=== PATIENT | male | born 1990 | race Two or more races ===

== ENCOUNTER → 2020-07-02 | Outpatient (REF) | payer OTHER ==
[2020-07-02 16:50] LABS: BASO % 0.5 % (0.0-1.0); EOS % 0.7 % (0.0-3.0); HEMATOCRIT 45.7 % (42.0-52.0); LYMPH # 1.7 10^3/uL (1.5-5.0); LYMPH % 27.5 % (24.0-44.0); MEAN CORPUSCULAR HEMOGLOBIN 27.5 pg (27.0-33.0); MEAN CORPUSCULAR HGB CONC 30.6 g/dl (32.0-36.5); MEAN CORPUSCULAR VOLUME 89.6 fl (80.0-96.0); MONO % 15.6 % (0.0-5.0); NEUTROPHILS # 3.4 10^3/uL (1.5-8.5); NEUTROPHILS % 55.5 % (36.0-66.0); PLATELET COUNT, AUTOMATED 199 10^3/uL (150-450); WHITE BLOOD COUNT 6.2 10^3/uL (4.0-10.0)
[2020-07-02 17:10] LABS: ALT/SGPT 34 U/L (12-78); BILIRUBIN,TOTAL 0.4 MG/DL (0.2-1.0); BLOOD UREA NITROGEN 11 MG/DL (7-18); CALCIUM LEVEL 8.8 MG/DL (8.5-10.1); CARBON DIOXIDE LEVEL 31 MEQ/L (21-32); CHLORIDE LEVEL 108 MEQ/L (98-107); CREATININE FOR GFR 0.93 MG/DL (0.70-1.30); GLOMERULAR FILTRATION RATE > 60.0 (>60); GLUCOSE, FASTING 76 MG/DL (70-100); SODIUM LEVEL 142 MEQ/L (136-145); TOTAL PROTEIN 7.6 GM/DL (6.4-8.2)
== END ==
LOC: M SFHCPLAZ 14:01
PROVIDERS: ATTEND Nurse Practitioner Family
DX: Z28.3 Underimmunization status (principal); L05.91 Pilonidal cyst without abscess; Z02.1 Encounter for pre-employment examination

== ENCOUNTER 2020-10-03 12:56 | Emergency (ER) | payer OTHER ==
[~2020-10-03] VITALS: Ht 180.3 cm; Wt 72.7 kg
[2020-10-03 12:57] VITALS: BP 120/79
[2020-10-03] MEDS ORDERED: BACT800T5 PO (13:14)
== END 2020-10-03 13:21 | disposition home or self-care (01) ==
LOC: M ED 12:56
DX: L05.91 Pilonidal cyst without abscess (principal); F17.210 Nicotine dependence, cigarettes, uncomplicated

== ENCOUNTER 2020-10-06 12:59 | Emergency (ER) | payer OTHER ==
[~2020-10-06] VITALS: Ht 180.3 cm; Wt 70.0 kg
[~2020-10-06 12:59] MED LIST: BACT800T5 PO
[2020-10-06 13:07] VITALS: BP 108/66
[2020-10-06] MEDS ORDERED: LIDOCAINE W/EPINEPHRINE 1% 20ML VIAL SC ONE (13:45)
== END 2020-10-06 14:51 | disposition home or self-care (01) ==
LOC: M ED 12:59
DX: L05.01 Pilonidal cyst with abscess (principal); R19.7 Diarrhea, unspecified; Z79.2 Long term (current) use of antibiotics

== ENCOUNTER 2020-10-14 14:46 | Emergency (ER) | payer OTHER ==
[~2020-10-14] VITALS: Ht 180.3 cm; Wt 72.7 kg
[2020-10-14] MEDS ORDERED: methylPREDNISolone 125MG 2ML VIAL IV ONE (15:00)
[2020-10-14] MEDS ORDERED: FAMOTIDINE INJ 20MG/2ML VIAL (S0028 PER 1) IVP ONE (15:00)
[2020-10-14] MEDS ORDERED: METOCLOPRAMIDE INJ 10MG/2ML VIAL (J2765 PER 1) IV ONE (15:00)
[2020-10-14] MEDS ORDERED: NS 1,000 ML IV ONE (15:00)
--- NOTE | 2020-10-14 15:29 | REP ---
INDICATION: acute headache. COMPARISON: None. TECHNIQUE: Helical scanning is acquired. 5 mm axial images were reformatted. Coronal MPR images were generated. FINDINGS: Bone window settings demonstrate an intact bony calvarium. There is no evidence of skull fracture or incidental bony calvarial lesion. The visualized paranasal sinuses appear clear. No intraorbital abnormality is seen. On soft tissue window setting images; the lateral, third, and fourth ventricles are normal in size and position. Moe-white differentiation pattern is normal above and below the tentorium. There are is no evidence of intracranial hemorrhage. No mass, edema, infarction, or midline shift is seen. No extra-axial fluid collection is appreciated. There is some motion artifact on the initial acquisition. This was repeated. IMPRESSION: Negative noncontrast head CT. <Electronically signed by Jaxon Elkins > 10/14/20 [id number]
[2020-10-14 15:48] LABS: BASO % 0.7 % (0.0-1.0); HEMATOCRIT 47.5 % (42.0-52.0); HEMOGLOBIN 15.6 g/dl (13.5-17.5); LYMPH # 0.5 10^3/uL (1.5-5.0); LYMPH % 16.8 % (24.0-44.0); MEAN CORPUSCULAR HEMOGLOBIN 27.8 pg (27.0-33.0); MEAN CORPUSCULAR HGB CONC 32.8 g/dl (32.0-36.5); MEAN CORPUSCULAR VOLUME 84.5 fl (80.0-96.0); MONO # 0.3 10^3/uL (0.0-0.8); MONO % 10.5 % (2.0-8.0); NEUTROPHILS # 2.1 10^3/uL (1.5-8.5); NEUTROPHILS % 70.3 % (36.0-66.0); PLATELET COUNT, AUTOMATED 159 10^3/uL (150-450); RED BLOOD COUNT 5.62 10^6/uL (4.30-6.10)
[2020-10-14 16:57] LABS: ALBUMIN 4.1 GM/DL (3.2-5.2); BILIRUBIN,DIRECT 0.3 MG/DL (0.0-0.2); BILIRUBIN,TOTAL 0.6 MG/DL (0.2-1.0); CALCIUM LEVEL 9.3 MG/DL (8.5-10.1); CREATININE FOR GFR 1.46 MG/DL (0.70-1.30); POTASSIUM SERUM 3.9 MEQ/L (3.5-5.1); TOTAL PROTEIN 8.5 GM/DL (6.4-8.2)
[2020-10-14 18:12] VITALS: BP 114/66
== END 2020-10-14 18:27 | disposition home or self-care (01) ==
LOC: M ED 14:46
DX: L50.0 Allergic urticaria (principal); R94.5 Abnormal results of liver function studies; Z79.2 Long term (current) use of antibiotics
CPT/HCPCS: 36415; 70450; 80048; 80076; 85025; 93041; 94760; 96361; 96374; 99285; J2765; J2930

== ENCOUNTER → 2020-10-15 | Outpatient (CLI) | payer OTHER ==
[2020-10-15 18:23] LABS: HEMOGLOBIN 15.5 g/dl (13.5-17.5); MEAN CORPUSCULAR HEMOGLOBIN 27.9 pg (27.0-33.0); MEAN CORPUSCULAR HGB CONC 32.3 g/dl (32.0-36.5); MEAN CORPUSCULAR VOLUME 86.5 fl (80.0-96.0); PLATELET COUNT, AUTOMATED 178 10^3/uL (150-450); RED BLOOD COUNT 5.55 10^6/uL (4.30-6.10); WHITE BLOOD COUNT 6.6 10^3/uL (4.0-10.0)
[2020-10-15 18:47] LABS: ALBUMIN 4.4 GM/DL (3.2-5.2); ALT/SGPT 401 U/L (12-78); BILIRUBIN,TOTAL 0.4 MG/DL (0.2-1.0); BLOOD UREA NITROGEN 15 MG/DL (7-18); CALCIUM LEVEL 9.1 MG/DL (8.5-10.1); CARBON DIOXIDE LEVEL 31 MEQ/L (21-32); CHLORIDE LEVEL 104 MEQ/L (98-107); CREATININE FOR GFR 1.16 MG/DL (0.70-1.30); GLOMERULAR FILTRATION RATE > 60.0 (>60); GLUCOSE, FASTING 94 MG/DL (70-100); POTASSIUM SERUM 4.2 MEQ/L (3.5-5.1); SODIUM LEVEL 139 MEQ/L (136-145); TOTAL PROTEIN 8.3 GM/DL (6.4-8.2)
[2020-10-15 18:57] LABS: ATYPICAL LYMPH 2 % (0-5); BASOPHILS 1 % (0-1); EOSINOPHILS 1 % (0-3); LYMPHOCYTES 38 % (16-44); MONOCYTES 14 % (0-5); NEUTROPHILS 27 % (28-66)
[2020-10-15 18:58] LABS: ANISOCYTOSIS 1+; PLATELET ESTIMATE NORMAL (NORMAL)
== END ==
LOC: M LAB 17:53
PROVIDERS: ATTEND Family Medicine
DX: N17.9 Acute kidney failure, unspecified (principal); T36.95XA Adverse effect of unspecified systemic antibiotic, initial encounter; B17.9 Acute viral hepatitis, unspecified

== ENCOUNTER → 2020-10-19 | Outpatient (REF) | payer OTHER ==
[2020-10-19 15:44] LABS: ALBUMIN 3.6 GM/DL (3.2-5.2); ALT/SGPT 119 U/L (12-78); BILIRUBIN,TOTAL 0.3 MG/DL (0.2-1.0); BLOOD UREA NITROGEN 14 MG/DL (7-18); CALCIUM LEVEL 8.6 MG/DL (8.5-10.1); CARBON DIOXIDE LEVEL 28 MEQ/L (21-32); CHLORIDE LEVEL 107 MEQ/L (98-107); CREATININE FOR GFR 0.82 MG/DL (0.70-1.30); GLOMERULAR FILTRATION RATE > 60.0 (>60); GLUCOSE, FASTING 108 MG/DL (70-100); SODIUM LEVEL 140 MEQ/L (136-145)
[2020-10-19 16:05] LABS: HEPATITIS B SURFACE ANTIGEN NEGATIVE (NEGATIVE)
[2020-10-19 16:33] LABS: HEPATITIS B CORE ANTIBODY IGM NEGATIVE (NEGATIVE)
[2020-10-19 16:35] LABS: HEPATITIS A ANTIBODY IGM NEGATIVE (NEGATIVE)
== END ==
LOC: M SFHCPLAZ 13:37
PROVIDERS: ATTEND Physician Assistant
DX: T36.95XA Adverse effect of unspecified systemic antibiotic, initial encounter (principal); N17.9 Acute kidney failure, unspecified; B17.9 Acute viral hepatitis, unspecified

== ENCOUNTER → 2020-11-02 | Outpatient (REF) | payer OTHER | LOC: M SFHCPLAZ 16:48 | PROVIDERS: ATTEND Family Medicine | DX: L05.01 Pilonidal cyst with abscess (principal) ==

== ENCOUNTER 2021-03-19 03:09 | Inpatient (IN) | payer OTHER ==
[~2021-03-19] VITALS: Ht 180.3 cm; Wt 72.7 kg
--- NOTE | 2021-03-19 04:51 | REPVR ---
PROCEDURE INFORMATION: Exam: CT Head Without Contrast Exam date and time: 03/19/2021 3:33 AM Age: 30 years old Clinical indication: Injury or trauma; Fall; Concussion/head injury TECHNIQUE: Imaging protocol: Computed tomography of the head without contrast. Radiation optimization: All CT scans at this facility use at least one of these dose optimization techniques: automated exposure control; mA and/or kV adjustment per patient size (includes targeted exams where dose is matched to clinical indication); or iterative reconstruction. COMPARISON: CT Head without contrast 10/14/2020 3:16 PM FINDINGS: There are no intra-or extra-axial hemorrhages or fluid collections. There is no mass effect or midline shift. Ventricles are nondilated for age. There are no focal parenchymal abnormalities. No calvarial fractures. IMPRESSION: No acute intracranial process. No intracranial hemorrhage. Electronically signed by: Luis Hartman On 03/19/2021 04:50:54 AM
--- NOTE | 2021-03-19 04:53 | REPVR ---
PROCEDURE INFORMATION: Exam: CT Cervical Spine Without Contrast Exam date and time: 03/19/2021 3:33 AM Age: 30 years old Clinical indication: Neck pain; Additional info: Trauma TECHNIQUE: Imaging protocol: Computed tomography images of the cervical spine without contrast. Radiation optimization: All CT scans at this facility use at least one of these dose optimization techniques: automated exposure control; mA and/or kV adjustment per patient size (includes targeted exams where dose is matched to clinical indication); or iterative reconstruction. COMPARISON: CT Head without contrast 10/14/2020 3:16 PM FINDINGS: On sagittal sequences, there is straightening of the normal cervical lordosis. Cervical vertebral body heights are maintained. Disc spaces are maintained. There is no AP malalignment. No prevertebral soft tissue swelling. Posterior elements and facets are intact. On axial sequences, intact neural rings are identified from C1-T1. No evidence of acute fracture. Advanced cystic changes in the lung apices for age. IMPRESSION: No acute fracture or traumatic AP malalignment within the cervical spine. Electronically signed by: Luis Hartman On 03/19/2021 04:52:59 AM
--- NOTE | 2021-03-19 06:08 | REPVR ---
PROCEDURE INFORMATION: Exam: XR Left Knee Exam date and time: 03/19/2021 5:59 AM Age: 30 years old Clinical indication: Injury or trauma; Fall; Blunt trauma; Knee; Left; Additional info: Fall/trauma TECHNIQUE: Imaging protocol: XR Left knee. Views: 4 or more views. COMPARISON: No relevant prior studies available. FINDINGS: Comminuted fracture of the patella which is dislocated superiorly and laterally. No evidence of fracture within the distal femur, proximal tibia or proximal fibula. IMPRESSION: Fracture dislocation of the patella. No fracture within the distal femur, proximal tibia or proximal fibula. Electronically signed by: Luis Hartman On 03/19/2021 06:07:50 AM
[2021-03-19] MEDS: MORPHINE 2 MG/ML 1ML VIAL (J2270) IV PRN ×2 (06:14→08:56)
[2021-03-19] MEDS ORDERED: ceFAZolin SOD 2 GM in IV 1 EA IV ONE (06:20)
[2021-03-19] MEDS ORDERED: HOME MED LIST COMPLETE! XX SCH (06:25)
[2021-03-19] MEDS ORDERED: ceFAZolin 1GM VIAL (J0690 PER 500MG) As Ordered ONE (06:36)
[2021-03-19 06:50] LABS: BASO % 0.5 % (0.0-1.0); EOS % 0.5 % (0.0-3.0); HEMATOCRIT 44.9 % (42.0-52.0); HEMOGLOBIN 14.9 g/dl (13.5-17.5); LYMPH # 2.2 10^3/uL (1.5-5.0); LYMPH % 24.7 % (24.0-44.0); MEAN CORPUSCULAR HEMOGLOBIN 28.3 pg (27.0-33.0); MEAN CORPUSCULAR HGB CONC 33.2 g/dl (32.0-36.5); MEAN CORPUSCULAR VOLUME 85.4 fl (80.0-96.0); MONO # 0.9 10^3/uL (0.0-0.8); MONO % 9.8 % (2.0-8.0); NEUTROPHILS # 5.7 10^3/uL (1.5-8.5); NEUTROPHILS % 63.8 % (36.0-66.0); PLATELET COUNT, AUTOMATED 255 10^3/uL (150-450); RED BLOOD COUNT 5.26 10^6/uL (4.30-6.10); WHITE BLOOD COUNT 8.8 10^3/uL (4.0-10.0)
[2021-03-19 07:14] LABS: ALBUMIN 4.2 GM/DL (3.2-5.2); ALT/SGPT 35 U/L (12-78); BILIRUBIN,TOTAL 0.4 MG/DL (0.2-1.0); BLOOD UREA NITROGEN 12 MG/DL (7-18); CALCIUM LEVEL 8.6 MG/DL (8.5-10.1); CARBON DIOXIDE LEVEL 26 MEQ/L (21-32); CHLORIDE LEVEL 110 MEQ/L (98-107); CREATININE FOR GFR 0.87 MG/DL (0.70-1.30); ETHYL ALCOHOL (ETHANOL) 0.118 % (0.000-0.010); GLOMERULAR FILTRATION RATE > 60.0 (>60); GLUCOSE, FASTING 84 MG/DL (70-100); POTASSIUM SERUM 4.2 MEQ/L (3.5-5.1); SODIUM LEVEL 141 MEQ/L (136-145); TOTAL PROTEIN 7.7 GM/DL (6.4-8.2)
[2021-03-19 07:22] LABS: AMPHETAMINES LEVEL URINE NEGATIVE (NEGATIVE); BARBITURATES URINE NEGATIVE (NEGATIVE); BENZODIAZEPINES URINE NEGATIVE (NEGATIVE); CANNABINOIDS URINE POSITIVE (NEGATIVE); COCAINE METABOLITE URINE NEGATIVE (NEGATIVE); METHADONE URINE NEGATIVE (NEGATIVE); OPIATES URINE POSITIVE (NEGATIVE); PHENCYCLIDINE URINE NEGATIVE (NEGATIVE)
[2021-03-19] MEDS ORDERED: ACETAMINOPHEN TAB 650MG DOSE (2X325MG) PO PRN (07:30)
[2021-03-19 07:33] LABS: RSV AMPLIFICATION NEGATIVE (NEGATIVE)
[2021-03-19 08:36] LABS: INR 0.97; PROTHROMBIN TIME 13.3 SECONDS (12.7-14.5)
[2021-03-19 08:37] LABS: PARTIAL THROMBOPLASTIN TIME 31.2 SECONDS (25.9-37.0)
[2021-03-19] MEDS ORDERED: PERCOCET 5MG/325MG TAB PO PRN (11:10)
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
[2021-03-19] MEDS: PERCOCET 5MG/325MG TAB PO PRN ×2 (11:34→17:36)
[2021-03-19 14:25] VITALS: BP 105/75
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
[2021-03-19] MEDS: MORPHINE 4 MG/ML 1ML VIAL/SYRINGE (J2270) IV PRN (20:51)
[2021-03-19 22:00] VITALS: BP 120/80
[2021-03-20] VITALS (7 sets, daily range): BP systolic 114–143; BP diastolic 66–88
[2021-03-20] MEDS: PERCOCET 5MG/325MG TAB PO PRN ×3 (03:08→23:26)
[2021-03-20] MEDS: MORPHINE 4 MG/ML 1ML VIAL/SYRINGE (J2270) IV PRN ×2 (03:09→20:35)
[2021-03-20 07:29] LABS: HEMOGLOBIN 14.4 g/dl (13.5-17.5); MEAN CORPUSCULAR HEMOGLOBIN 28.7 pg (27.0-33.0); MEAN CORPUSCULAR HGB CONC 33.5 g/dl (32.0-36.5); MEAN CORPUSCULAR VOLUME 85.7 fl (80.0-96.0); PLATELET COUNT, AUTOMATED 230 10^3/uL (150-450); RED BLOOD COUNT 5.02 10^6/uL (4.30-6.10); WHITE BLOOD COUNT 10.4 10^3/uL (4.0-10.0)
[2021-03-20 07:55] LABS: BLOOD UREA NITROGEN 14 MG/DL (7-18); CARBON DIOXIDE LEVEL 31 MEQ/L (21-32); CHLORIDE LEVEL 102 MEQ/L (98-107); CREATININE FOR GFR 0.94 MG/DL (0.70-1.30); GLOMERULAR FILTRATION RATE > 60.0 (>60); GLUCOSE, FASTING 98 MG/DL (70-100); MAGNESIUM LEVEL 2.4 MG/DL (1.8-2.4); POTASSIUM SERUM 4.4 MEQ/L (3.5-5.1); SODIUM LEVEL 136 MEQ/L (136-145)
[2021-03-20] MEDS ORDERED: MIDAZOLAM INJ 2MG/2ML VIAL (J2250 PER 1MG) As Ordered ONE ×2 (08:12→08:15)
[2021-03-20] MEDS ORDERED: fentaNYL 100 MCG/2 ML INJECTION (J3010) As Ordered ONE ×2 (08:12→09:33)
[2021-03-20] MEDS ORDERED: ROCURONIUM BROMIDE 50 MG/5 ML VIAL As Ordered ONE ×2 (08:15→10:08)
[2021-03-20] MEDS ORDERED: fentaNYL 250 MCG/5 ML INJECTION (J3010) As Ordered ONE (08:15)
[2021-03-20] MEDS ORDERED: LIDOCAINE 2% 100MG/5ML SDV (FOR ANES.) As Ordered ONE (08:15)
[2021-03-20] MEDS ORDERED: propofoL 200 MG/20 ML VIAL As Ordered ONE (08:15)
[2021-03-20] MEDS ORDERED: EPINEPHrine INJ 1 MG/ML 1ML AMP XX ONE (08:50)
[2021-03-20] MEDS ORDERED: ROPIvacaine 0.5% 30ML INJECTION (J2795 PER 1MG) XX ONE (08:50)
[2021-03-20] MEDS ORDERED: dexameTHASONE 10MG/1ML VIAL PRES.FREE (J1100 PER 1MG) XX ONE (08:50)
[2021-03-20] MEDS ORDERED: LIDOCAINE 1% MDV 20ML VIAL XX ONE (08:50)
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
[2021-03-20] MEDS ORDERED: ENOXAPARIN 40MG/0.4ML SYRINGE (J1650 PER 10MG) SC SCH (09:00)
[2021-03-20] MEDS ORDERED: TRANEXAMIC ACID 100 MG/ML 10ML VIAL As Ordered ONE ×2 (09:05→12:28)
[2021-03-20] MEDS: MIDAZOLAM INJ 2MG/2ML VIAL (J2250 PER 1MG) IV PRN ×2 (09:07→09:12)
[2021-03-20] MEDS: fentaNYL 100 MCG/2 ML INJECTION (J3010) IV PRN ×2 (09:07→09:25)
[2021-03-20] MEDS ORDERED: ceFAZolin 1GM VIAL (J0690 PER 500MG) As Ordered ONE (10:18)
[2021-03-20] MEDS ORDERED: ONDANSETRON 4MG/2ML VIAL As Ordered ONE (11:08)
[2021-03-20] MEDS ORDERED: ACETAMINOPHEN 1000MG 100ML IV BTL (OFIRMEV) (J0131 PER 10MG) As Ordered ONE (11:09)
[2021-03-20] MEDS ORDERED: NEOSTIGMINE 10MG/10ML VIAL (J2710 PER 0.5MG) As Ordered ONE (12:03)
[2021-03-20] MEDS ORDERED: VANCOMYCIN 1000MG/20ML VIAL As Ordered ONE (12:03)
[2021-03-20] MEDS ORDERED: GLYCOPYRROLATE INJ 0.2 MG/ML 2 ML VIAL As Ordered ONE (12:03)
--- NOTE | 2021-03-20 13:03 | REP ---
INDICATION: ORIF LEFT PATELLA. COMPARISON: None. TECHNIQUE: Intraoperative fluoroscopic imaging of the left knee. FINDINGS: Images demonstrate satisfactory open reduction and fixation for comminuted patellar fracture. Total fluoroscopic time 1 minutes 49 seconds. IMPRESSION: Status post satisfactory open reduction and fixation for patellar fracture. <Electronically signed by German Winslow > 03/20/21 [id number]
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
[2021-03-21] MEDS ORDERED: KETOROLAC 30 MG/ML 1ML VIAL IV ONE
[2021-03-21 02:00] VITALS: BP 125/69
[2021-03-21] MEDS: MORPHINE 4 MG/ML 1ML VIAL/SYRINGE (J2270) IV PRN (04:17)
[2021-03-21 06:00] VITALS: BP 126/77
[2021-03-21] MEDS ORDERED: ASPI-551 PO ×2 (07:36→16:18)
[2021-03-21] MEDS ORDERED: PERCOCET PO ×2 (07:36→16:18)
[2021-03-21] MEDS: PERCOCET 5MG/325MG TAB PO PRN ×2 (08:27→14:46)
[2021-03-21] MEDS ORDERED: ASPIRIN 81MG ENTERIC TABLET PO SCH (09:00)
[2021-03-21 09:54] LABS: HEMATOCRIT 39.3 % (42.0-52.0); MEAN CORPUSCULAR HEMOGLOBIN 28.3 pg (27.0-33.0); MEAN CORPUSCULAR HGB CONC 33.1 g/dl (32.0-36.5); MEAN CORPUSCULAR VOLUME 85.6 fl (80.0-96.0); PLATELET COUNT, AUTOMATED 223 10^3/uL (150-450); RED BLOOD COUNT 4.59 10^6/uL (4.30-6.10); WHITE BLOOD COUNT 12.2 10^3/uL (4.0-10.0)
[2021-03-21 10:00] VITALS: BP 125/51
[2021-03-21 10:14] LABS: BLOOD UREA NITROGEN 14 MG/DL (7-18); CARBON DIOXIDE LEVEL 30 MEQ/L (21-32); CHLORIDE LEVEL 102 MEQ/L (98-107); CREATININE FOR GFR 0.91 MG/DL (0.70-1.30); GLOMERULAR FILTRATION RATE > 60.0 (>60); GLUCOSE, FASTING 102 MG/DL (70-100); POTASSIUM SERUM 4.2 MEQ/L (3.5-5.1); SODIUM LEVEL 138 MEQ/L (136-145)
[2021-03-21 13:50] LABS: HEP C VIRUS AB INDEX SOURCE PT < 0.0 INDEX (0.0-0.8); HIV SCREEN CENTAUR SOURCE NEGATIVE (NEGATIVE)
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
== END 2021-03-21 16:36 | disposition home or self-care (01) | DRG 317 ==
LOC: M ED 03:09 → M ED INP 07:28 → ENRESERV 13:10 → M MS5PR 14:30
PROVIDERS: ADMIT Internal Medicine; ATTEND Internal Medicine Nephrology
PROC: 0LQR0ZZ Repair Left Knee Tendon, Open Approach (ICD-10-PCS; 2021-03-20)
PROC: 0QSD04Z Reposition Right Patella with Internal Fixation Device, Open Approach (ICD-10-PCS; principal; 2021-03-20 08:00)
DX: S82.042A Displaced comminuted fracture of left patella, initial encounter for closed fracture (principal); S76.122A Laceration of left quadriceps muscle, fascia and tendon, initial encounter; F11.10 Opioid abuse, uncomplicated; Y04.8XXA Assault by other bodily force, initial encounter; Y92.414 Local residential or business street as the place of occurrence of the external cause; Y93.89 Activity, other specified; Y99.8 Other external cause status; F17.200 Nicotine dependence, unspecified, uncomplicated; F12.10 Cannabis abuse, uncomplicated; F10.10 Alcohol abuse, uncomplicated; Z20.822 Contact with and (suspected) exposure to COVID-19

== ENCOUNTER → 2021-04-05 | Outpatient (CLI) | payer OTHER ==
[~2021-04-05] MED LIST changes: +ASPI-551 PO; +PERCOCET PO
--- NOTE | 2021-04-05 15:57 | REP ---
INDICATION: PATELLA FX FOLLOW-UP. COMPARISON: Comparison knee radiographs March 19, 2021. TECHNIQUE: AP and lateral views of the left knee are provided. These are obtained through overlying cast material. FINDINGS: AP and lateral views of the left knee are obtained postoperatively. There are extensive metallic screw plate device is in the anterior surface of patella transfixing the fragments in good position. There is some prepatellar and peripatellar soft tissue swelling. IMPRESSION: Status post open reduction internal fixation for comminuted patellar fracture. <Electronically signed by Jaxon Elkins > 04/05/21 [id number]
== END ==
LOC: M SOG 14:10
PROVIDERS: ATTEND Orthopaedic Surgery
DX: Z48.89 Encounter for other specified surgical aftercare (principal)

== ENCOUNTER 2021-04-14 15:11 | Inpatient (IN) | payer OTHER ==
[~2021-04-14] VITALS: Ht 203.2 cm; Wt 64.6 kg
[2021-04-14] MEDS ORDERED: dexameTHASONE 4 MG/ML 1ML VIAL (J1100 PER 1MG) As Ordered ONE (16:01)
[2021-04-14] MEDS ORDERED: LIDOCAINE 2% 100MG/5ML SDV (FOR ANES.) As Ordered ONE (16:01)
[2021-04-14] MEDS ORDERED: ONDANSETRON 4MG/2ML VIAL As Ordered ONE (16:01)
[2021-04-14] MEDS ORDERED: MIDAZOLAM INJ 2MG/2ML VIAL (J2250 PER 1MG) As Ordered ONE (16:01)
[2021-04-14] MEDS ORDERED: propofoL 200 MG/20 ML VIAL As Ordered ONE (16:01)
[2021-04-14] MEDS ORDERED: fentaNYL 100 MCG/2 ML INJECTION (J3010) As Ordered ONE ×2 (16:01→19:07)
[2021-04-14] MEDS ORDERED: VANCOMYCIN 1000MG/20ML VIAL As Ordered ONE (17:32)
[2021-04-14] MEDS ORDERED: ROCURONIUM BROMIDE 50 MG/5 ML VIAL As Ordered ONE (17:59)
[2021-04-14] MEDS ORDERED: ceFAZolin 1GM VIAL (J0690 PER 500MG) As Ordered ONE (18:09)
[2021-04-14] MEDS ORDERED: VANCOMYCIN 500MG/10ML VIAL As Ordered ONE (19:08)
[2021-04-14] MEDS ORDERED: ACETAMINOPHEN 1000MG 100ML IV BTL (OFIRMEV) (J0131 PER 10MG) As Ordered ONE (19:12)
[2021-04-14] MEDS ORDERED: SUGAMMADEX SODIUM 500 MG/5 ML VIAL (BRIDION) As Ordered ONE (19:30)
[2021-04-14] MEDS ORDERED: oxyCODONE 5MG TAB PO PRN (20:10)
[2021-04-14] MEDS ORDERED: ONDANSETRON 4MG/2ML VIAL IV PRN ×2 (20:10→20:35)
[2021-04-14] MEDS ORDERED: LR 1,000 ML IV SCH (20:10)
[2021-04-14] MEDS: MEPERIDINE INJ 25 MG/ML VIAL (J2175) IV PRN ×2 (20:15→20:22)
[2021-04-14] MEDS: fentaNYL 100 MCG/2 ML INJECTION (J3010) IV PRN ×4 (20:21→20:42)
[2021-04-14] MEDS ORDERED: ROPIvacaine 0.5% 30ML INJECTION (J2795 PER 1MG) XX ONE (20:30)
[2021-04-14] MEDS ORDERED: EPINEPHrine INJ 1 MG/ML 1ML AMP XX ONE (20:30)
[2021-04-14] MEDS ORDERED: dexameTHASONE 10MG/1ML VIAL PRES.FREE (J1100 PER 1MG) XX ONE (20:30)
[2021-04-14] MEDS ORDERED: VANCOMYCIN HCL 750 MG, VIAL MATE ADAPTER 1 EACH in NS 250 ML IV SCH (20:35)
[2021-04-14] MEDS ORDERED: ACETAMINOPHEN TAB 650MG DOSE (2X325MG) PO PRN (20:35)
[2021-04-14] MEDS ORDERED: PERCOCET 5MG/325MG TAB PO PRN ×2 (20:35)
[2021-04-14 21:23] LABS: HEMATOCRIT 38.2 % (42.0-52.0); HEMOGLOBIN 12.2 g/dl (13.5-17.5); MEAN CORPUSCULAR HEMOGLOBIN 28.2 pg (27.0-33.0); MEAN CORPUSCULAR HGB CONC 31.9 g/dl (32.0-36.5); MEAN CORPUSCULAR VOLUME 88.2 fl (80.0-96.0); PLATELET COUNT, AUTOMATED 264 10^3/uL (150-450); RED BLOOD COUNT 4.33 10^6/uL (4.30-6.10); WHITE BLOOD COUNT 5.8 10^3/uL (4.0-10.0)
[2021-04-14 21:25] VITALS: BP 121/66
[2021-04-14 21:34] LABS: PROTHROMBIN TIME 13.6 SECONDS (12.7-14.5)
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
[2021-04-14 21:49] LABS: BLOOD UREA NITROGEN 8 MG/DL (7-18); CALCIUM LEVEL 8.8 MG/DL (8.5-10.1); CARBON DIOXIDE LEVEL 30 MEQ/L (21-32); CHLORIDE LEVEL 108 MEQ/L (98-107); CREATININE FOR GFR 0.85 MG/DL (0.70-1.30); GLOMERULAR FILTRATION RATE > 60.0 (>60); GLUCOSE, FASTING 109 MG/DL (70-100); POTASSIUM SERUM 3.8 MEQ/L (3.5-5.1); SODIUM LEVEL 143 MEQ/L (136-145)
[2021-04-14 22:35] VITALS: BP 122/69
[2021-04-14] MEDS: PIPERACILLIN/TAZOBACTAM SOD 3.375 GM in D5W MINI-BAG PLUS 50 ML IV SCH (23:31)
[2021-04-14] MEDS: DOCUSATE SODIUM 100MG CAPSULE PO SCH (23:31)
[2021-04-14 23:35] VITALS: BP 124/66
[2021-04-15] MEDS ORDERED: VANCOMYCIN HCL 750 MG, VIAL MATE ADAPTER 1 EACH in NS 250 ML IV ONE ×3
[2021-04-15 00:35] VITALS: BP 126/68
[2021-04-15] MEDS ORDERED: VANCOMYCIN HCL 500 MG in D5W MINI-BAG PLUS 100 ML IV ONE (01:00)
[2021-04-15] MEDS: PIPERACILLIN/TAZOBACTAM SOD 3.375 GM in D5W MINI-BAG PLUS 50 ML IV SCH ×2 (05:23→12:04)
[2021-04-15 06:00] VITALS: BP 134/78
[2021-04-15 06:21] LABS: HEMOGLOBIN 11.5 g/dl (13.5-17.5); MEAN CORPUSCULAR HEMOGLOBIN 27.6 pg (27.0-33.0); MEAN CORPUSCULAR HGB CONC 31.9 g/dl (32.0-36.5); MEAN CORPUSCULAR VOLUME 86.3 fl (80.0-96.0); PLATELET COUNT, AUTOMATED 248 10^3/uL (150-450); RED BLOOD COUNT 4.17 10^6/uL (4.30-6.10); WHITE BLOOD COUNT 7.7 10^3/uL (4.0-10.0)
[2021-04-15 06:41] LABS: BLOOD UREA NITROGEN 7 MG/DL (7-18); CALCIUM LEVEL 8.6 MG/DL (8.5-10.1); CARBON DIOXIDE LEVEL 29 MEQ/L (21-32); CHLORIDE LEVEL 105 MEQ/L (98-107); CREATININE FOR GFR 0.75 MG/DL (0.70-1.30); GLOMERULAR FILTRATION RATE > 60.0 (>60); GLUCOSE, FASTING 140 MG/DL (70-100); POTASSIUM SERUM 4.2 MEQ/L (3.5-5.1); SODIUM LEVEL 141 MEQ/L (136-145)
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
--- NOTE | 2021-04-15 09:59 | IPN ---
PROGRESS NOTE DATE: 04/15/2021 SUBJECTIVE: The patient is seen and examined at the bedside. He complains of 3/10 pain when he is not moving, requesting a pain pill [id number] due to severe pain when he starts to move around at 10/10 on pain scale. The patient continues to have bloody drainage through his drains at the left knee. He complains of slight numbness in the left lower extremity. No fevers or chills overnight. OBJECTIVE: VITAL SIGNS: Temperature 97.9, pulse 67, respiratory rate 17, blood pressure 134/78, 98% on room air. GENERAL: Awake, alert, oriented to person, place and time. Answers questions appropriately. No distress. LUNGS: Clear to auscultation. No wheezes, rhonchi or rales. HEART: S1, S2, sinus rhythm. ABDOMEN: Soft, nontender, non-distended. Positive bowel sounds. EXTREMITIES: Left lower extremity with two drains, postop in a brace. No pitting edema bilaterally. No cyanosis. Laboratory data, imaging studies, microbiology have been reviewed. ASSESSMENT/PLAN: 30-year-old -Irish male, status post left patella ORIF with some purulent drainage at the one site after two weeks, taken to the OR for washout and debridement with cultures obtained, currently on IV Vancomycin, dosed by pharmacy and IV Zosyn. IMPRESSION: 1. Postop left knee infection, status post patellar ORIF, status post washout, debridement and irrigation, postop day #1. The patient is requesting [id number] pain medications and Oxycodone every 6 to be held for respiratory rate less 12, altered mental status, sedation or respiratory distress and his pain if controlled less than 5/10 on pain scale. Acetaminophen 1 gm every 6 hours as well. The patient is on IV Vanco and Zosyn. Dr. Ray from infectious disease is being consulted. 2. History of polysubstance abuse, currently with postop wound knee infection. Continue with pain meds for now. MTDD
[2021-04-15] MEDS ORDERED: ACETAMINOPHEN 500 MG TAB PO ONE (10:00)
[2021-04-15] MEDS: ENOXAPARIN 40MG/0.4ML SYRINGE (J1650 PER 10MG) SC SCH (10:00)
[2021-04-15] MEDS ORDERED: oxyCODONE 5MG TAB PO ONE (10:00)
[2021-04-15] MEDS: DOCUSATE SODIUM 100MG CAPSULE PO SCH ×2 (10:00→21:48)
[2021-04-15] MEDS: VANCOMYCIN HCL 1,000 MG, VIAL MATE ADAPTER 1 EACH in NS 250 ML IV SCH ×2 (10:03→18:13)
[2021-04-15] MEDS: oxyCODONE 5MG TAB PO SCH ×2 (12:05→18:26)
[2021-04-15] MEDS: ACETAMINOPHEN 500 MG TAB PO SCH ×2 (12:05→18:27)
[2021-04-15 14:00] VITALS: BP 111/59
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
[2021-04-15 22:00] VITALS: BP 129/75
[2021-04-15] MEDS: MORPHINE 4 MG/ML 1ML VIAL/SYRINGE (J2270) IV PRN (22:24)
[2021-04-16] MEDS ORDERED: VANCOMYCIN HCL 750 MG, VIAL MATE ADAPTER 1 EACH in NS 250 ML IV SCH (02:00)
[2021-04-16] MEDS: ACETAMINOPHEN 500 MG TAB PO SCH ×5 (02:09→23:57)
[2021-04-16] MEDS: oxyCODONE 5MG TAB PO SCH ×2 (02:10→06:00)
[2021-04-16] MEDS ORDERED: VANCOMYCIN HCL 500 MG in D5W MINI-BAG PLUS 100 ML IV SCH (03:00)
[2021-04-16 06:00] VITALS: BP 115/73
[2021-04-16] MEDS: MORPHINE 4 MG/ML 1ML VIAL/SYRINGE (J2270) IV PRN (06:08)
[2021-04-16 06:36] LABS: HEMATOCRIT 34.8 % (42.0-52.0); HEMOGLOBIN 10.9 g/dl (13.5-17.5); MEAN CORPUSCULAR HEMOGLOBIN 27.5 pg (27.0-33.0); MEAN CORPUSCULAR HGB CONC 31.3 g/dl (32.0-36.5); MEAN CORPUSCULAR VOLUME 87.7 fl (80.0-96.0); PLATELET COUNT, AUTOMATED 250 10^3/uL (150-450); RED BLOOD COUNT 3.97 10^6/uL (4.30-6.10); WHITE BLOOD COUNT 7.4 10^3/uL (4.0-10.0)
[2021-04-16 06:58] LABS: BLOOD UREA NITROGEN 7 MG/DL (7-18); CALCIUM LEVEL 8.4 MG/DL (8.5-10.1); CARBON DIOXIDE LEVEL 29 MEQ/L (21-32); CHLORIDE LEVEL 110 MEQ/L (98-107); CREATININE FOR GFR 0.68 MG/DL (0.70-1.30); GLOMERULAR FILTRATION RATE > 60.0 (>60); GLUCOSE, FASTING 86 MG/DL (70-100); POTASSIUM SERUM 3.6 MEQ/L (3.5-5.1); SODIUM LEVEL 144 MEQ/L (136-145)
[2021-04-16] MEDS: ENOXAPARIN 40MG/0.4ML SYRINGE (J1650 PER 10MG) SC SCH (09:00)
[2021-04-16] MEDS ORDERED: PILL CUTTER 1 EACH XX PRN (09:20)
--- NOTE | 2021-04-16 10:07 | IPNPDOC ---
Date Seen The patient was seen on 04/16/21. Progress Note SUBJECTIVE: Complains of minimal relief Left lower extremity pain 7 out of 10 even with resting without exertion No fever chills overnight OBJECTIVE: VITAL SIGNS: See below GENERAL: Awake, alert, oriented to person, place and time. Answers questions appropriately. No distress. No use of respiratory accessory muscles HEENT: NO JVD THYROMEGALY OR CERVICAL LYMPHADENOPATHY MOIST MUCOUS MEMBRANES LUNGS: Clear to auscultation. No wheezes, rhonchi or rales. HEART: S1, S2, sinus rhythm. ABDOMEN: Soft, nontender, non-distended. Positive bowel sounds. EXTREMITIES: Left lower extremity with MIKI drains postop in a brace. No pitting edema bilaterally. No cyanosis. Laboratory data, imaging studies, microbiology have been reviewed. ASSESSMENT/PLAN: 30-year-old -Lithuanian male, status post left patella ORIF with some purulent drainage at the one site after two weeks, taken to the OR for washout and debridement with cultures obtained, currently on IV Vancomycin, dosed by pharmacy and IV Zosyn. IMPRESSION: 1. Postop left knee prosthetic infection, status post patellar ORIF, status post washout, debridement and irrigation, postop day #2. Patient was initially started on IV vancomycin and IV Zosyn Per Dr. Rani Ray infectious disease specialist microbiology showed gram-negative Organisms. IV Vanco was discontinued yesterday. Patient will go for washout on 04/17/2021. We will hold patient's anticoagulation 12 hours prior to washout. Since the patient has had no improvement on oxycodone for pain control will change to MS controlled release 15 mg twice daily, MSIR 15 mg every 4 as needed for mild to moderate pain. Per infectious disease if coag negative staph or staph aureus may add p.o. rifampin to decrease risk of Osteomyelitis. 2. History of polysubstance abuse, currently with postop wound knee infection. Continue with pain meds for now. VS, I&O, 24H, Fishbone Vital Signs/I&O Vital Signs Date Time Temp Pulse Resp B/P (MAP) Pulse Ox O2 Delivery O2 Flow Rate FiO2 04/16/21 06:18 60 14 97 Room Air 04/16/21 06:00 96.6 115/73 (87) 04/14/21 20:15 10.0 I&O- Last 24 Hours up to 6 AM 04/16/21 06:00 Intake Total 1545 ml Output Total 1255 ml Balance 290 ml Laboratory Data 24H LABS Laboratory Tests 2 04/16/21 01:09: Vancomycin Level Trough 7.1L 04/16/21 06:00: Nucleated Red Blood Cells % (auto) 0.0, Anion Gap 5L, Glomerular Filtration Rate > 60.0, Calcium Level 8.4L CBC/BMP Laboratory Tests 04/16/21 06:00 Microbiology Microbiology 04/14/21 Fungal Smear, Received Pending 04/14/21 Fungal Culture, Received Pending 04/14/21 Gram Stain - Final, Resulted 04/14/21 Wound Culture, Resulted Pending 04/14/21 Anaerobic Culture - Final, Resulted JD ANAND MD Apr 16, 2021 10:07
[2021-04-16] MEDS ORDERED: PIPERACILLIN/TAZOBACTAM SOD 3.375 GM in D5W MINI-BAG PLUS 50 ML IV SCH (11:00)
[2021-04-16] MEDS: MORPHINE 15 MG SA TAB PO SCH ×2 (11:07→20:29)
[2021-04-16] MEDS: DOCUSATE SODIUM 100MG CAPSULE PO SCH ×2 (11:08→20:25)
[2021-04-16] MEDS: PIPERACILLIN/TAZOBACTAM SOD 3.375 GM in D5W MINI-BAG PLUS 50 ML IV SCH ×3 (11:08→23:56)
[2021-04-16 14:00] VITALS: BP 115/61
[2021-04-16 22:00] VITALS: BP 135/79
[2021-04-17] MEDS: PIPERACILLIN/TAZOBACTAM SOD 3.375 GM in D5W MINI-BAG PLUS 50 ML IV SCH ×4 (05:08→22:32)
[2021-04-17] MEDS: ACETAMINOPHEN 500 MG TAB PO SCH ×3 (05:09→18:00)
[2021-04-17 06:00] VITALS: BP 148/77
[2021-04-17 06:37] LABS: HEMATOCRIT 37.8 % (42.0-52.0); HEMOGLOBIN 11.9 g/dl (13.5-17.5); MEAN CORPUSCULAR HEMOGLOBIN 28.2 pg (27.0-33.0); MEAN CORPUSCULAR HGB CONC 31.5 g/dl (32.0-36.5); MEAN CORPUSCULAR VOLUME 89.6 fl (80.0-96.0); PLATELET COUNT, AUTOMATED 235 10^3/uL (150-450); RED BLOOD COUNT 4.22 10^6/uL (4.30-6.10)
[2021-04-17 07:00] LABS: BLOOD UREA NITROGEN 9 MG/DL (7-18); CALCIUM LEVEL 8.9 MG/DL (8.5-10.1); CARBON DIOXIDE LEVEL 31 MEQ/L (21-32); CHLORIDE LEVEL 106 MEQ/L (98-107); CREATININE FOR GFR 0.87 MG/DL (0.70-1.30); GLOMERULAR FILTRATION RATE > 60.0 (>60); GLUCOSE, FASTING 92 MG/DL (70-100); POTASSIUM SERUM 3.9 MEQ/L (3.5-5.1); SODIUM LEVEL 142 MEQ/L (136-145)
[2021-04-17] MEDS: DOCUSATE SODIUM 100MG CAPSULE PO SCH ×2 (09:00→21:00)
[2021-04-17] MEDS: ENOXAPARIN 40MG/0.4ML SYRINGE (J1650 PER 10MG) SC SCH (09:00)
[2021-04-17] MEDS: D5W/0.45% SODIUM CHLORIDE 1,000 ML IV SCH ×2 (09:14→22:32)
[2021-04-17] MEDS: MORPHINE 15 MG SA TAB PO SCH ×2 (09:22→22:38)
--- NOTE | 2021-04-17 10:51 | IPNPDOC ---
Date Seen The patient was seen on 04/17/21. Progress Note SUBJECTIVE: Pain is controlled without fever chills continued bloody drainage through the MIKI drains at the left knee Patient says that he has lost his brace. RN looking in the OR where the patient had washout 3 days ago. Patient requesting a toothbrush down to be changed and to be washed. No nausea vomiting diarrhea abdominal pain chest pain pressure tightness shortness of breath palpitations or lightheadedness OBJECTIVE: VITAL SIGNS: See below GENERAL: Irritable no distress no cyanosis icterus jaundice HEENT: Moist mucous membranes no cervical lymphadenopathy thyromegaly or jugular venous distention LUNGS: Clear to auscultation. No wheezes, rhonchi or rales. HEART: S1, S2, sinus rhythm. Not tachycardic ABDOMEN: Soft, nontender, non-distended. Positive bowel sounds. No hepatospl enomegaly EXTREMITIES: Left lower extremity with MIKI drains with bloody discharge postop in a Knee stabilizer nopitting edema bilaterally. No cyanosis. Laboratory data, imaging studies, microbiology have been reviewed. ASSESSMENT/PLAN: 30-year-old -[place] male, status post left patella ORIF with some purulent drainage at the one site after two weeks, taken to the OR for washout and debridement with cultures obtained, currently on IV Vancomycin, dosed by pharmacy and IV Zosyn. IMPRESSION: 1. Postop left knee prosthetic infection, status post patellar ORIF, status post washout, debridement and irrigation, postop day #3. Patient was initially started on IV vancomycin and IV Zosyn Per Dr. Rnai Ray infectious disease specialist microbiology showed gram- negative Organisms. IV Vanco was discontinued yesterday. Patient will go for washout TODAY 04/17/2021. We have held the patient's anticoagulation 12 hours prior to washout. Pain is better controlled with MS controlled release 15 mg twice daily, MSIR 15 mg every 4 as needed for mild to moderate pain. Per infectious disease if coag negative staph or staph aureus may add p.o. rifampin to decrease risk of Osteomyelitis. 2. History of polysubstance abuse, currently with postop wound knee infection. Continue with pain meds for now. VS, I&O, 24H, Fishbone Vital Signs/I&O Vital Signs Date Time Temp Pulse Resp B/P (MAP) Pulse Ox O2 Delivery O2 Flow Rate FiO2 04/17/21 09:22 68 20 121/83 98 Room Air 04/17/21 06:00 97.8 04/14/21 20:15 10.0 I&O- Last 24 Hours up to 6 AM 04/17/21 06:00 Intake Total 220 ml Output Total 435 ml Balance -215 ml Laboratory Data 24H LABS Laboratory Tests 2 04/17/21 05:57: Nucleated Red Blood Cells % (auto) 0.0, Anion Gap 5L, Glomerular Filtration Rate > 60.0, Calcium Level 8.9 CBC/BMP Laboratory Tests 04/17/21 05:57 Microbiology Microbiology 04/14/21 Fungal Smear, Received Pending 04/14/21 Fungal Culture, Received Pending 04/14/21 Gram Stain - Final, Complete 04/14/21 Wound Culture - Final, Complete Enterobacter Cloacae Complex 04/14/21 Anaerobic Culture - Final, Complete JD ANAND MD Apr 17, 2021 10:47
[2021-04-17 14:00] VITALS: BP 131/82
[2021-04-17] MEDS ORDERED: VANCOMYCIN 1000MG/20ML VIAL As Ordered ONE ×2 (18:21→19:13)
[2021-04-17] MEDS ORDERED: ACETAMINOPHEN 1000MG 100ML IV BTL (OFIRMEV) (J0131 PER 10MG) As Ordered ONE (18:36)
[2021-04-17] MEDS ORDERED: propofoL 200 MG/20 ML VIAL As Ordered ONE (18:36)
[2021-04-17] MEDS ORDERED: MIDAZOLAM INJ 2MG/2ML VIAL (J2250 PER 1MG) As Ordered ONE (18:36)
[2021-04-17] MEDS ORDERED: ePHEDrine SULFATE 25 MG/5 ML(5MG/ML) SYRINGE As Ordered ONE (18:36)
[2021-04-17] MEDS ORDERED: ONDANSETRON 4MG/2ML VIAL As Ordered ONE (18:36)
[2021-04-17] MEDS ORDERED: LIDOCAINE 2% 100MG/5ML SDV (FOR ANES.) As Ordered ONE (18:36)
[2021-04-17] MEDS ORDERED: fentaNYL 100 MCG/2 ML INJECTION (J3010) As Ordered ONE ×2 (18:36→20:06)
[2021-04-17] MEDS ORDERED: HYDROmorphone HCL 2 MG/ML 1ML VIAL As Ordered ONE (18:53)
[2021-04-17] MEDS ORDERED: LR 1,000 ML IV SCH (20:00)
[2021-04-17] MEDS ORDERED: ONDANSETRON 4MG/2ML VIAL IV PRN (20:00)
[2021-04-17] MEDS ORDERED: METOCLOPRAMIDE INJ 10MG/2ML VIAL (J2765 PER 1) IV PRN (20:00)
[2021-04-17] MEDS: fentaNYL 100 MCG/2 ML INJECTION (J3010) IV PRN ×4 (20:09→20:25)
[2021-04-17] MEDS: PERCOCET 5MG/325MG TAB PO PRN ×2 (20:10→20:40)
[2021-04-17 21:00] VITALS: BP 146/90
[2021-04-17 21:30] VITALS: BP 118/78
[2021-04-17 22:30] VITALS: BP 118/64
[2021-04-18] MEDS: ACETAMINOPHEN 500 MG TAB PO SCH ×5 (00:06→23:38)
[2021-04-18 06:00] VITALS: BP 135/65
[2021-04-18] MEDS: PIPERACILLIN/TAZOBACTAM SOD 3.375 GM in D5W MINI-BAG PLUS 50 ML IV SCH ×3 (06:05→13:46)
[2021-04-18] MEDS: MORPHINE 30 MG TAB **MSIR PO PRN ×2 (06:12→15:45)
[2021-04-18 06:38] LABS: HEMATOCRIT 35.7 % (42.0-52.0); HEMOGLOBIN 11.3 g/dl (13.5-17.5); MEAN CORPUSCULAR HEMOGLOBIN 27.9 pg (27.0-33.0); MEAN CORPUSCULAR HGB CONC 31.7 g/dl (32.0-36.5); MEAN CORPUSCULAR VOLUME 88.1 fl (80.0-96.0); PLATELET COUNT, AUTOMATED 234 10^3/uL (150-450); RED BLOOD COUNT 4.05 10^6/uL (4.30-6.10); WHITE BLOOD COUNT 6.1 10^3/uL (4.0-10.0)
[2021-04-18 06:55] LABS: BLOOD UREA NITROGEN 7 MG/DL (7-18); CALCIUM LEVEL 8.5 MG/DL (8.5-10.1); CARBON DIOXIDE LEVEL 31 MEQ/L (21-32); CHLORIDE LEVEL 107 MEQ/L (98-107); GLOMERULAR FILTRATION RATE > 60.0 (>60); GLUCOSE, FASTING 89 MG/DL (70-100); POTASSIUM SERUM 3.9 MEQ/L (3.5-5.1); SODIUM LEVEL 142 MEQ/L (136-145)
--- NOTE | 2021-04-18 08:54 | RO ---
OPERATIVE NOTE DATE OF OPERATION: 04/17/2021 TIME: 6:30 p.m. PREOPERATIVE DIAGNOSIS: Left knee surgical site infection, status post ORIF of left patella. POSTOPERATIVE DIAGNOSIS: Left knee surgical site infection, status post ORIF of left patella. PROCEDURE: Left knee surgical site irrigation and debridement, negative pressure wound therapy dressing. SURGEON: Melchor Schmidt MD HYDROSTATIC TESTER: None. SUPERVISING ATTENDING: Melchor Schmidt MD ANESTHESIA: GETA. FINDINGS: The patient had viable tissue on second irrigation and debridement, appeared to be healing well. There were no signs of infection on this procedure. INDICATIONS: This is a 30-year-old male who sustained a left patellar comminuted closed fracture on February,. He underwent open reduction and internal fixation on February, for left patellar open reduction and internal fixation. He returned to our clinic 3-1/2 weeks after with purulent drainage from his surgical site infection on March,. He underwent left knee surgical site irrigation and debridement on 14 of April and underwent the aforementioned procedure today, second irrigation and debridement of left knee surgical site infection. TOURNIQUET TIME: 15 minutes. ESTIMATED BLOOD LOSS: 10 mL. IV FLUIDS: Please see anesthesia report. IV ANTIBIOTICS: Please see anesthesia report. CULTURES: None. SPECIMEN: None. IMPLANTS: None. DESCRIPTION OF PROCEDURE: The patient was met in the preoperative holding area where the patient's operative extremity was signed. The patient's consent was confirmed to be correct. The patient's identity was confirmed to be correct. The patient was then transferred to the operating theater where he placed in supine position on regular surgical flat top bed. Safety strap secured the patient to the bed, all bony prominences were well padded, and the contralateral lower extremity had SCD placed. Time out was called which confirmed the correct patient, correct operative extremity, and correct consent. All staff was in agreement. I began the procedure by removing the previously placed sutures over the anterior incision of his left knee. Once these were removed we removed the single #0 PDS suture closing the medial arthrotomy. This was then removed. His MIKI drain was removed. We then copiously irrigated the joint through the medial arthrotomy as well as the surgical site using 9 liters normal saline. I used a scrub brush in order to clean the StarPlate over the anterior aspect of the patient's patella. Once the copious irrigation was completed I placed 2 gm of Vancomycin powder within the knee joint and performed closure of the medial arthrotomy as it appeared to be clean and uninfected. I used three #0 PDS sutures to close the medial arthrotomy. The MIKI drain as mentioned above was removed. I then added 1 gm of Vancomycin powder and put this on the anterior aspect of the StarPlate. I then loosely approximated the skin edges using 2-0 nylon suture and placed a Prevena negative pressure wound therapy dressing over the patient's surgical incision. This completed the case. We then placed an Tien bandage over the Prevena and placed the patient's left knee in knee immobilizer. The patient was then extubated without complication and transferred to the postanesthesia care unit. At this point in time the patient's care will be transferred to the Hospitalist as well as infectious disease service. The patient will likely receive a third and last irrigation and debridement likely on the March, where we plan to perform primary closure. The patient will continue to receive his IV antibiotics as scheduled per infectious disease doctor. The patient will be educated on the aforementioned findings when he awakens in the PACU.
[2021-04-18 10:00] VITALS: BP 146/81
[2021-04-18] MEDS: DOCUSATE SODIUM 100MG CAPSULE PO SCH ×2 (10:15→21:04)
[2021-04-18] MEDS: MORPHINE 15 MG SA TAB PO SCH ×2 (10:16→21:04)
[2021-04-18] MEDS: ENOXAPARIN 40MG/0.4ML SYRINGE (J1650 PER 10MG) SC SCH (10:18)
[2021-04-18] MEDS: D5W/0.45% SODIUM CHLORIDE 1,000 ML IV SCH ×2 (12:16→13:40)
[2021-04-18] MEDS: MORPHINE 4 MG/ML 1ML VIAL/SYRINGE (J2270) IV PRN (12:33)
--- NOTE | 2021-04-18 13:32 | IPNPDOC ---
Date Seen The patient was seen on 04/18/21. Progress Note SUBJECTIVE: no issues overnight. no fever/chills, and says pain is controlled. OBJECTIVE: VITAL SIGNS: See below GENERAL: supine no distress. no cyanosis or pallor HEENT: Moist mucous membranes no cervical lymphadenopathy thyromegaly or jugular venous distention LUNGS: Clear to auscultation. No wheezes, rhonchi or rales.I:E ratio 1:2 HEART: S1, S2, sinus rhythm. Not tachycardic ABDOMEN: Soft, nontender, non-distended. Positive bowel sounds. No hepatosplenomegaly EXTREMITIES: Left lower extremity with woound vac nopitting edema bilaterally. No cyanosis. Laboratory data, imaging studies, microbiology have been reviewed. ASSESSMENT/PLAN: 30-year-old -[place] male, status post left patella ORIF with some purulent drainage at the one site after two weeks, taken to the OR for washout and debridement with cultures obtained, currently on IV Vancomycin, dosed by pharmacy and IV Zosyn. IMPRESSION: 1. Postop left knee prosthetic infection, status post patellar ORIF, status p ost washout, debridement and irrigation, postop day #4. Patient was initially started on IV vancomycin and IV Zosyn Per Dr. Rani Ray infectious disease specialist microbiology showed gram-neg ative Organisms. s/pwashout 04/17/2021.resumed on DVT prophylaxis on MS controlled release 15 mg twice daily, MSIR 15 mg every 4 as needed for mild to moderate pain. wound cx: enterobacter sensitive to zosyn. postop mgt per ortho. aru consulted. pt's previous brace was thrown out due to being contaminated with infection. new brace needed prior to dc home. 2. History of polysubstance abuse, currently with postop wound knee infection. Continue with pain meds for now. VS, I&O, 24H, Fishbone Vital Signs/I&O Vital Signs Date Time Temp Pulse Resp B/P (MAP) Pulse Ox O2 Delivery O2 Flow Rate FiO2 04/18/21 12:43 18 04/18/21 12:33 135/79 04/18/21 10:00 98.3 88 99 Room Air 04/14/21 20:15 10.0 l I&O- Last 24 Hours up to 6 AM 04/18/21 06:00 Intake Total 2130 ml Output Total 1750 ml Balance 380 ml Laboratory Data 24H LABS Laboratory Tests 2 04/18/21 06:00: Nucleated Red Blood Cells % (auto) 0.0, Anion Gap 4L, Glomerular Filtration Rate > 60.0, Calcium Level 8.5 CBC/BMP Laboratory Tests 04/18/21 06:00 Microbiology Microbiology 04/14/21 Fungal Smear, Received Pending 04/14/21 Fungal Culture, Received Pending 04/14/21 Gram Stain - Final, Complete 04/14/21 Wound Culture - Final, Complete Enterobacter Cloacae Complex 04/14/21 Anaerobic Culture - Final, Complete JD ANAND MD Apr 18, 2021 13:32
[2021-04-18 14:00] VITALS: BP 131/79
[2021-04-18] MEDS: LevoFLOXacin 750 MG TABLET PO SCH (18:16)
[2021-04-18] MEDS ORDERED: CHLORASEPTIC SPRAY MT ONE (18:30)
[2021-04-18] MEDS ORDERED: CEPACOL LOZENGE PO PRN (18:30)
[2021-04-18 18:36] LABS: C REACTIVE PROTEIN QUANTITATIV 1.28 MG/DL (0.00-0.30)
[2021-04-18] MEDS ORDERED: CEPACOL LOZENGE PO ONE (18:45)
[2021-04-18 21:00] VITALS: BP 125/74
[2021-04-19] MEDS: ACETAMINOPHEN 500 MG TAB PO SCH ×4 (05:27→23:19)
[2021-04-19 06:00] VITALS: BP 122/74
[2021-04-19 06:51] LABS: HEMATOCRIT 38.9 % (42.0-52.0); HEMOGLOBIN 12.5 g/dl (13.5-17.5); MEAN CORPUSCULAR HEMOGLOBIN 27.8 pg (27.0-33.0); MEAN CORPUSCULAR HGB CONC 32.1 g/dl (32.0-36.5); MEAN CORPUSCULAR VOLUME 86.4 fl (80.0-96.0); PLATELET COUNT, AUTOMATED 240 10^3/uL (150-450); WHITE BLOOD COUNT 6.4 10^3/uL (4.0-10.0)
[2021-04-19 07:39] LABS: BLOOD UREA NITROGEN 11 MG/DL (7-18); CALCIUM LEVEL 9.2 MG/DL (8.5-10.1); CARBON DIOXIDE LEVEL 30 MEQ/L (21-32); CHLORIDE LEVEL 105 MEQ/L (98-107); CREATININE FOR GFR 0.74 MG/DL (0.70-1.30); GLOMERULAR FILTRATION RATE > 60.0 (>60); GLUCOSE, FASTING 87 MG/DL (70-100); POTASSIUM SERUM 4.2 MEQ/L (3.5-5.1); SODIUM LEVEL 140 MEQ/L (136-145)
[2021-04-19] MEDS: DOCUSATE SODIUM 100MG CAPSULE PO SCH ×2 (08:30→20:28)
[2021-04-19] MEDS: MORPHINE 15 MG SA TAB PO SCH ×2 (08:31→20:28)
[2021-04-19] MEDS: ENOXAPARIN 40MG/0.4ML SYRINGE (J1650 PER 10MG) SC SCH (08:32)
--- NOTE | 2021-04-19 10:18 | IPN ---
PROGRESS NOTE DATE: 04/18/2021 SUBJECTIVE: The patient complains of severe pain since his second surgery. The patient had second surgery done yesterday on 04/17 and Prevena wound dressing was placed. The StarPlate over the anterior aspect of the patient's patella was cleaned, was irrigated with 2 gm of Vancomycin. The plan according to Dr. Schmidt was to do last irrigation on and primary closure. OBJECTIVE: VITAL SIGNS: Temperature 98.6, pulse 70, respirations 16, blood pressure 131/79, O2 sat 97% room air. LEFT KNEE: In a brace with Prevena wound dressing which could not be removed. HEART: Normal S1, S2, no murmurs. LUNGS: Clear. ABDOMEN: Soft, nontender. Culture from 04/14 was positive for Enterobacter cloacae, resistant to Cephazolin. LABS: White count 6.1, hemoglobin 11.3, hematocrit 35.7, platelets 234. Sodium 142, potassium 3.9, chloride 107, bicarb 31, BUN 7, creatinine 0.8 IMPRESSION: 1. Postoperative wound infection of left knee with culture positive for E. cloacae. The patient will be switched from IV Zosyn to PO Levofloxacin 750 mg PO daily. 2. History of patellar fracture, status post open reduction and internal fixation. PLAN Discontinue IV Zosyn, continue with PO Levofloxacin. Will obtain CRP baseline level. Will be elevated due to multiple surgeries. MTDD
[2021-04-19 14:00] VITALS: BP 121/70
--- NOTE | 2021-04-19 17:07 | IPNPDOC ---
Subjective Date Seen The patient was seen on 04/19/21. Subjective Chief Complaint/HPI Patient did not offer any specific complaints this morning however he is frustrated that he has to be in the hospital so long and feels that nothing is getting resolved. Patient is planned for another irrigation and drainage on 04/23/2021. No fever or chills Objective Physical Examination General Exam: Positive: Alert, Cooperative, No Acute Distress Eye Exam: Positive: PERRLA, Conjunctiva & lids normal, EOMI; Negative: Sclera icteric ENT Exam: Positive: Atraumatic, Mucous membr. moist/pink, Pharynx Normal Neck Exam: Positive: Supple; Negative: JVD, thyromegaly Chest Exam: Positive: Clear to auscultation, Normal air movement Heart Exam: Positive: Rate Normal, Regular Rhythm, Normal S1, Normal S2; Negative: Murmurs, Rubs Abdomen Exam: Positive: Normal bowel sounds, Soft; Negative: Tenderness, Hepatospenomegaly Extremity Exam: Positive: Other (Left knee with knee immobilizer); Negative: Clubbing, Cyanosis, Edema Assessment /Plan Assessment Postoperative wound infection at the left knee After ORIF of left patella fracture Status post irrigation and drainage on 04/14/2021 and 04/17/2021 Currently has wound VAC in place Will need a new knee brace because the older one was infected so was thrown away in OR Culture grew Enterobacter cloacae Antibiotic changed from Zosyn to levofloxacin Appreciate ID consult Remains nonweightbearing on the left lower extremity Pain control with MS Contin History of left patellar comminuted fracture, status post open reduction and internal fixation on 03/20/2021 History of polysubstance abuse Plan/VTE VTE Prophylaxis Ordered?: Yes VS, I&O, 24H, Fishbone Vital Signs/I&O Vital Signs Date Time Temp Pulse Resp B/P (MAP) Pulse Ox O2 Delivery O2 Flow Rate FiO2 04/19/21 14:00 98.0 92 18 121/70 (87) 93 Room Air 04/14/21 20:15 10.0 I&O- Last 24 Hours up to 6 AM 04/19/21 06:00 Intake Total 1360 ml Output Total 1100 ml Balance 260 ml Laboratory Data 24H LABS Laboratory Tests 2 04/19/21 06:11: Nucleated Red Blood Cells % (auto) 0.0, Anion Gap 5L, Glomerular Filtration Rate > 60.0, Calcium Level 9.2 CBC/BMP Laboratory Tests 04/19/21 06:11 Microbiology Microbiology 04/14/21 Fungal Smear, Received Pending 04/14/21 Fungal Culture, Received Pending 04/14/21 Gram Stain - Final, Complete 04/14/21 Wound Culture - Final, Complete Enterobacter Cloacae Complex 04/14/21 Anaerobic Culture - Final, Complete Irma Ferreira MD Apr 19, 2021 17:07
[2021-04-19] MEDS: LevoFLOXacin 750 MG TABLET PO SCH (18:23)
[2021-04-19 22:00] VITALS: BP_SYST 121; BP_SYST 154; BP_DIAS 84; BP_DIAS 96
[2021-04-20] MEDS: ACETAMINOPHEN 500 MG TAB PO SCH ×4 (05:31→23:16)
[2021-04-20 06:00] VITALS: BP 120/82
[2021-04-20] MEDS: DOCUSATE SODIUM 100MG CAPSULE PO SCH ×2 (09:00→20:09)
[2021-04-20] MEDS: ENOXAPARIN 40MG/0.4ML SYRINGE (J1650 PER 10MG) SC SCH (09:46)
[2021-04-20] MEDS: MORPHINE 15 MG SA TAB PO SCH ×2 (09:48→20:09)
[2021-04-20 14:00] VITALS: BP 113/70
[2021-04-20] MEDS: LevoFLOXacin 750 MG TABLET PO SCH (18:12)
[2021-04-20 22:00] VITALS: BP 124/76
[2021-04-21] MEDS: ACETAMINOPHEN 500 MG TAB PO SCH ×4 (05:55→23:33)
[2021-04-21 06:00] VITALS: BP 129/74
[2021-04-21] MEDS: DOCUSATE SODIUM 100MG CAPSULE PO SCH ×2 (09:18→20:15)
[2021-04-21] MEDS: ENOXAPARIN 40MG/0.4ML SYRINGE (J1650 PER 10MG) SC SCH (09:19)
[2021-04-21] MEDS: MORPHINE 15 MG SA TAB PO SCH ×2 (09:20→20:19)
--- NOTE | 2021-04-21 10:39 | IPNPDOC ---
Subjective Date Seen The patient was seen on 04/20/21. Subjective Chief Complaint/HPI No issues overnight. Patient easily gets frustrated with his situation and being unable to go home. No fever or chills. Pain is controlled with current pain medication regimen Objective Physical Examination General Exam: Positive: Alert, Cooperative, No Acute Distress Eye Exam: Positive: PERRLA, Conjunctiva & lids normal, EOMI; Negative: Sclera icteric ENT Exam: Positive: Atraumatic, Mucous membr. moist/pink, Pharynx Normal Neck Exam: Positive: Supple; Negative: JVD, thyromegaly Chest Exam: Positive: Clear to auscultation, Normal air movement Heart Exam: Positive: Rate Normal, Regular Rhythm, Normal S1, Normal S2; Negative: Murmurs, Rubs Abdomen Exam: Positive: Normal bowel sounds, Soft; Negative: Tenderness, Hepatospenomegaly Extremity Exam: Positive: Other (Left knee with knee immobilizer); Negative: Clubbing, Cyanosis, Edema Assessment /Plan Assessment Postoperative wound infection at the left knee After ORIF of left patella fracture Status post irrigation and drainage on 04/14/2021 and 04/17/2021, Planned for another irrigation on 04/23/21. Currently has wound VAC in place Culture grew Enterobacter cloacae Antibiotic changed from Zosyn to levofloxacin Appreciate ID consult Remains nonweightbearing on the left lower extremity Pain control with MS Contin Will need a new knee brace because the older one was infected so was thrown away in OR Contacted [facility] for fitting about new knee brace. History of left patellar comminuted fracture, status post open reduction and internal fixation on 03/20/2021 Plan/VTE VTE Prophylaxis Ordered?: Yes VS, I&O, 24H, Fishbone Vital Signs/I&O Vital Signs Date Time Temp Pulse Resp B/P (MAP) Pulse Ox O2 Delivery O2 Flow Rate FiO2 04/21/21 09:20 15 04/21/21 06:00 98.2 91 129/74 (92) 100 Room Air I&O- Last 24 Hours up to 6 AM 04/21/21 06:00 Intake Total 1230 ml Output Total 975 ml Balance 255 ml Laboratory Data 24H LABS Laboratory Tests 2 04/21/21 10:17: Microbiology Microbiology 04/14/21 Fungal Smear, Received Pending 9/16/21 Fungal Culture, Received Pending 04/14/21 Gram Stain - Final, Complete 04/14/21 Wound Culture - Final, Complete Enterobacter Cloacae Complex 04/14/21 Anaerobic Culture - Final, Complete Irma Ferreira MD Apr 21, 2021 10:39
[2021-04-21] MEDS: NICOTINE 14 MG/24 HR TRANSDERMAL TD SCH (13:05)
[2021-04-21] MEDS: LevoFLOXacin 750 MG TABLET PO SCH (18:25)
[2021-04-22] MEDS: ACETAMINOPHEN 500 MG TAB PO SCH (05:17)
[2021-04-22 05:57] VITALS: BP 132/80
[2021-04-22] MEDS: DOCUSATE SODIUM 100MG CAPSULE PO SCH ×2 (08:36→19:58)
[2021-04-22] MEDS ORDERED: ACETAMINOPHEN 500 MG TAB PO PRN (08:45)
[2021-04-22] MEDS: NICOTINE 14 MG/24 HR TRANSDERMAL TD SCH (09:00)
[2021-04-22] MEDS: ENOXAPARIN 40MG/0.4ML SYRINGE (J1650 PER 10MG) SC SCH (09:00)
[2021-04-22] MEDS ORDERED: HOME MED LIST COMPLETE! XX SCH (15:30)
--- NOTE | 2021-04-22 15:41 | IPN ---
PROGRESS NOTE DATE: 04/22/2021 Patient is very frustrated about his multiple surgeries and wound infection. He is questioning where could he have gotten the infection, and stated that when his cast was removed and the sutures were removed he had noticed there was some drainage and the wound did not look good and was wondering why he did not get antibiotics. I told him that I was not involved in his care at that time, and he would need to discuss that with orthopedics. He is going back to the operating room (OR) today with Dr. Schmidt. He remains afebrile. No nausea, vomiting. He has some soft stools. Temperature is 98.4, pulse 82, respirations 16, blood pressure 132/80, oxygen saturation 100% on room air. White count is 6.4, hemoglobin 12.5, hematocrit 38.9, platelets 240. On April 19 Wound cultures: Enterobacter cloacae. Knee culture: Fungus is still pending. IMPRESSION: Patellar fracture status post open reduction, internal fixation with postoperative wound infection with Enterobacter (E) cloacae. Patient has been on oral levofloxacin 750 mg daily, currently day #4. He had received 5 days of IV Zosyn prior. PLAN: The patient to go back to the OR today with Dr. Schmidt. Patient is hoping to be discharged home today. I have discussed the case with Dr. Schmidt. If he had to do a washing, we should use gentamicin, as he had a gram-negative on the culture. He will be discharged home on oral levofloxacin 750 mg by mouth daily for 10 days. [facility]
[2021-04-22] MEDS: LevoFLOXacin 750 MG TABLET PO SCH (18:27)
[2021-04-22] MEDS ORDERED: ceFAZolin 1GM VIAL (J0690 PER 500MG) As Ordered ONE (20:35)
[2021-04-22] MEDS ORDERED: dexameTHASONE 4 MG/ML 1ML VIAL (J1100 PER 1MG) As Ordered ONE (20:44)
[2021-04-22] MEDS ORDERED: ONDANSETRON 4MG/2ML VIAL As Ordered ONE (20:44)
[2021-04-22] MEDS ORDERED: LIDOCAINE 2% 100MG/5ML SDV (FOR ANES.) As Ordered ONE (20:44)
[2021-04-22] MEDS ORDERED: fentaNYL 100 MCG/2 ML INJECTION (J3010) As Ordered ONE ×3 (20:44→22:12)
[2021-04-22] MEDS ORDERED: METOCLOPRAMIDE INJ 10MG/2ML VIAL (J2765 PER 1) As Ordered ONE (20:44)
[2021-04-22] MEDS ORDERED: MIDAZOLAM INJ 2MG/2ML VIAL (J2250 PER 1MG) As Ordered ONE (20:44)
[2021-04-22] MEDS ORDERED: propofoL 200 MG/20 ML VIAL As Ordered ONE ×2 (20:44→21:54)
[2021-04-22] MEDS ORDERED: GENTAMICIN SULF 80MG/2ML VIAL As Ordered ONE (20:58)
[2021-04-22] MEDS ORDERED: fentaNYL 100 MCG/2 ML INJECTION (J3010) IV PRN (22:40)
[2021-04-22] MEDS ORDERED: oxyCODONE 5MG TAB PO PRN (22:40)
[2021-04-22] MEDS ORDERED: LR 1,000 ML IV SCH (22:40)
[2021-04-22] MEDS ORDERED: ONDANSETRON 4MG/2ML VIAL IV PRN (22:40)
[2021-04-22 23:15] VITALS: BP 127/83
[2021-04-22 23:45] VITALS: BP 127/88
[2021-04-23 00:15] VITALS: BP 119/69
[2021-04-23] MEDS: MORPHINE 30 MG TAB **MSIR PO PRN (00:57)
[2021-04-23 01:19] VITALS: BP 126/77
[2021-04-23 02:23] VITALS: BP 105/72
[2021-04-23 03:20] VITALS: BP 118/70
[2021-04-23 04:11] VITALS: BP 113/70
[2021-04-23 05:51] VITALS: BP 120/74
--- NOTE | 2021-04-23 07:15 | RO ---
OPERATIVE NOTE DATE OF OPERATION: 04/22/2021 TIME: 9 p.m. PREOPERATIVE DIAGNOSIS: Left knee surgical site infection. POSTOPERATIVE DIAGNOSIS: Left knee surgical site infection. NAME OF OPERATION: Left knee surgical site irrigation and debridement. SURGEON: Melchor Schmidt MD CHARGE MASTER COORDINATOR: SUPERVISING ATTENDING: Melchor Schmidt MD FINDINGS: The patient had no signs of infectin at today's irrigation and debridement of the left knee. INDICATIONS: This was a 30-year-old male who sustained a left patellar comminuted closed fracture on the February,. The patient underwent an open reduction and internal fixation on the February, for his left patella open reduction and internal fixation. He returned to our clinic 3-1/2 weeks after the aforementioned surgery with purulent drainage on the March,. The patient has undergone two left knee surgical site irrigations and debridements since that time to include one on the and another one on the 17 of April. He underwent his third and last irrigation and debridement for his left knee surgical site infection today. ANESTHESIA: GETA. TOURNIQUET TIME: 35 minutes. ESTIMATED BLOOD LOSS: 10 mL. IV FLUIDS: Please see anesthesia report. IV ANTIBIOTICS: Please see anesthesia report. CULTURES: None. SPECIMENS: None. IMPLANTS: None. DESCRIPTION OF PROCEDURE: The patient was met in the preoperative holding area where the patient's operative extremity was signed, the patient's consent was confirmed to be correct, and the patient's identity was confirmed to be correct. The patient was then transported to the operating theater where he was placed in a supine position on a regular surgical flat-top bed. A safety strap secured the patient to the bed. All bony prominences were well padded and the contralatral lower extremity had an SCD placed. A timeout was called which confirmed the correct patient, correct operative extremity and correct consent. All staff were in agreement. I began the procedure by removing the previously placed sutures over the anterior incision of his left knee. Once these were removed, I then focused to the region overlying the star plate as well as underneath the medial and lateral skin flaps. I then copiously irrigated the infected surgical site using two liters of normal saline. I then used a scrub brush in order to clean the star plate over the anterior aspect of the patient;s patella. Once the copious irrigation was completed, I placed 160 mg of gentamicin fluid over the plate in order to eradicate the gram negative cultured bacteria. Once this was completed, I closed the dermal layer using a #2 PDS suture. I closed the epidermis using an interrupted 3-0 nylon suture in interrupted fashion. I then placed a Prevena negative pressure wound therapy dressing over the patient's surgical incision which was powered by a [place] pack which will last five days. This completed the case. We then placed a knee immobilizer over the patient's knee. The patient was then extubated without complication and transported to the postanesthesia care unit. At this point in time, the patient's care will be transferred to the hospitalist as well as the infectious disease service. The patient will be prepared for discharge when he awakens in the morning on the March,. He will receive Levaquin as per infectious disease recommendations as well as postoperative pain medications and 81 mg of aspirin daily for 30 days. The patient will have close observation following his discharge to include daily wound checks and dressing changes. The patient will follow up in the orthopedic clinic at the [facility] on Sunday the , the 29 of April, the 02 of May and the 05 of May to ensure that his surgical site does not become infected in this postoperative period. The patient will likely be referred to the [facility] orthopedic clinic twice weekly for the next six weeks. He will also receive wound care at home on a daily basis. The patient was educated on the aforementioned findings in the postanesthesia care unit.
[2021-04-23] MEDS ORDERED: LEVO750T13 PO (07:45)
[2021-04-23] MEDS ORDERED: ASPI81TA26 PO (07:45)
[2021-04-23] MEDS ORDERED: OXYC1TAB23 PO (07:45)
[2021-04-23] MEDS: NICOTINE 14 MG/24 HR TRANSDERMAL TD SCH (09:00)
[2021-04-23] MEDS: DOCUSATE SODIUM 100MG CAPSULE PO SCH (09:00)
[2021-04-23] MEDS: ENOXAPARIN 40MG/0.4ML SYRINGE (J1650 PER 10MG) SC SCH (09:15)
--- NOTE | 2021-04-23 10:54 | DS.PDOC ---
Discharge Summary General Date of Admission Apr 14, 2021 at 20:02 Date of Discharge 04/23/2021 Discharge Summary PROCEDURES PERFORMED DURING STAY: [None]. DISCHARGE DIAGNOSES: Left knee postoperative wound infection after ORIF of patella History of substance abuse COMPLICATIONS/CHIEF COMPLAINT: Left Knee I & D. HOSPITAL COURSE: 30-year-old male who had comminuted fracture of the left patella in February 2021 status post ORIF of the patella on 03/20/2021 was admitted to the hospital for postoperative wound infection at the left knee surgical s ite. Postoperative wound infection at the left knee After ORIF of left patella fracture Status post irrigation and drainage on 04/14/2021 and 04/17/2021 and 04/22/21. Has drain in place. Culture grew Enterobacter cloacae levofloxacin 750 mg for 10 more days as per Toe-touch weightbearing on the left lower extremity Pain control with Percocet as needed New knee brace fitted. Continue aspirin for 1 month Follow-up with [facility] orthopedic clinic on 04/25/2021 DISCHARGE MEDICATIONS: Please see below. ALLERGIES: Please see below. PHYSICAL EXAMINATION ON DISCHARGE: VITAL SIGNS: Please see below. General Exam: Positive: Alert, Cooperative, No Acute Distress Eye Exam: Positive: PERRLA, Conjunctiva & lids normal, EOMI; Negative: Sclera icteric ENT Exam: Positive: Atraumatic, Mucous membr. moist/pink, Pharynx Normal Neck Exam: Positive: Supple; Negative: JVD, thyromegaly Chest Exam: Positive: Clear to auscultation, Normal air movement Heart Exam: Positive: Rate Normal, Regular Rhythm, Normal S1, Normal S2; Negative: Murmurs, Rubs Abdomen Exam: Positive: Normal bowel sounds, Soft; Negative: Tenderness, Hepatosplenomegaly Extremity Exam: Positive: Other (Left knee with knee immobilizer); Negative: Clubbing, Cyanosis, Edema LABORATORY DATA: Please see below. ACTIVITY: [As tolerated]. DIET: Regular DISCHARGE PLAN: Home with services DISCHARGE INSTRUCTIONS: Follow with orthopedics at [facility] on 04/25/2021 Daily wound care DISCHARGE CONDITION: [Stable]. TIME SPENT ON DISCHARGE: 35 minutes. Vital Signs/I&Os Vital Signs Date Time Temp Pulse Resp B/P (MAP) Pulse Ox O2 Delivery O2 Flow Rate FiO2 04/23/21 05:51 98.4 70 13 120/74 (89) 98 Room Air I&O- Last 24 Hours up to 6 AM 04/23/21 06:00 Intake Total 1540 ml Output Total 700 ml Balance 840 ml Microbiology Microbiology 04/14/21 Fungal Smear, Received Pending 04/14/21 Fungal Culture, Received Pending 04/14/21 Gram Stain - Final, Complete 04/14/21 Wound Culture - Final, Complete Enterobacter Cloacae Complex 04/14/21 Anaerobic Culture - Final, Complete Discharge Medications Scheduled Aspirin (Aspirin EC) 81 Mg Tablet.dr, 1 TAB PO DAILY for pain Levofloxacin (Levofloxacin) 750 Mg Tablet, 750 MG PO DAILY Scheduled PRN Oxycodone HCl/Acetaminophen (Oxycodone-Acetaminophen 5-325) 1 Each Tablet, 1-2 TAB PO TIDP PRN for pain Allergies Coded Allergies: Sulfa (Sulfonamide Antibiotics) (Verified Allergy, Intermediate, hives and itching, 03/20/21) Irma Ferreira MD Apr 23, 2021 10:54
[2021-04-23] MEDS ORDERED: INFLUENZA QUADRIVALENT PF VACCINE 0.5ML SYRINGE IM ONE (11:00)
== END 2021-04-23 10:50 | disposition home health service (06) | DRG 711 ==
LOC: M SDC 15:11 → M MSPAV 20:02
PROVIDERS: ADMIT Internal Medicine; ATTEND Internal Medicine Nephrology
PROC: 0LDR0ZZ Extraction of Left Knee Tendon, Open Approach (ICD-10-PCS; 2021-04-14)
PROC: 0S9D0ZZ Drainage of Left Knee Joint, Open Approach (ICD-10-PCS; principal; 2021-04-14 17:00)
PROC: 0S9D0ZZ Drainage of Left Knee Joint, Open Approach (ICD-10-PCS; 2021-04-17)
PROC: 0S9D0ZZ Drainage of Left Knee Joint, Open Approach (ICD-10-PCS; 2021-04-22)
DX: T81.49XA Infection following a procedure, other surgical site, initial encounter (principal); F11.10 Opioid abuse, uncomplicated; S82.042A Displaced comminuted fracture of left patella, initial encounter for closed fracture; Y83.8 Other surgical procedures as the cause of abnormal reaction of the patient, or of later complication, without mention of misadventure at the time of the procedure; F17.200 Nicotine dependence, unspecified, uncomplicated; F12.10 Cannabis abuse, uncomplicated; Z20.822 Contact with and (suspected) exposure to COVID-19; Z88.2 Allergy status to sulfonamides; Y04.8XXA Assault by other bodily force, initial encounter; Y92.414 Local residential or business street as the place of occurrence of the external cause; Y93.89 Activity, other specified; Y99.8 Other external cause status; B96.89 Other specified bacterial agents as the cause of diseases classified elsewhere

== ENCOUNTER → 2021-04-14 | Outpatient (CLI) | payer OTHER ==
--- NOTE | 2021-04-14 13:57 | REP ---
INDICATION: SURGICAL AFTERCARE. COMPARISON: None. TECHNIQUE: AP and lateral views left knee FINDINGS: Status post orthopedic fixation for patellar fracture. Mild anterior swelling and possible effusion cannot be excluded. The osseous structures are intact and essentially normal. IMPRESSION: Status post patellar fixation. Mild residual soft tissue swelling and possible effusion cannot be excluded. <Electronically signed by German Winslow > 04/14/21 [id number]
== END ==
LOC: M SOG 10:59
PROVIDERS: ATTEND Orthopaedic Surgery
DX: Z48.89 Encounter for other specified surgical aftercare (principal)

== ENCOUNTER → 2021-04-26 | Outpatient (CLI) | payer OTHER ==
[~2021-04-26] MED LIST changes: +ASPI81TA26 PO; +LEVO750T13 PO; +OXYC1TAB23 PO
--- NOTE | 2021-04-26 13:26 | REP ---
INDICATION: SURGICAL AFTERCARE. COMPARISON: Comparison left knee radiographs April 14, 2021. TECHNIQUE: AP and lateral views of the left knee are provided. FINDINGS: AP and lateral views of the left knee demonstrate some persistent peripatellar soft tissue swelling. There is evidence of a surgical drain. A star-shaped metallic screw plate fixation device is seen along the anterior surface of the patella. There is minimal fullness in the suprapatellar bursa suggestive of a small joint effusion. Bones joints and soft tissues are otherwise unremarkable. IMPRESSION: Post open reduction internal fixation for patellar fracture. <Electronically signed by Jaxon Elkins > 04/26/21 [id number]
== END ==
LOC: M SOG 09:58
PROVIDERS: ATTEND Orthopaedic Surgery
DX: Z48.89 Encounter for other specified surgical aftercare (principal)

== ENCOUNTER → 2021-05-18 | Outpatient (REF) ==
--- NOTE | 2021-05-19 05:54 | REP ---
INDICATION: PAIN IN LEFT KNEE COMPARISON: 04/26/2021 TECHNIQUE: AP, lateral, bilateral oblique and sunrise views. FINDINGS: The tibiofemoral compartment appears normal. Patient is status post open reduction and fixation for patellar fracture. Lateral view demonstrates continued anterior swelling and suprapatellar effusion. No acute fracture or dislocation. IMPRESSION: Presumed there is all vein postsurgical changes. Correlation with physical examination recommended. <Electronically signed by German Winslow > 05/19/21 [id number]
== END ==
LOC: M PLAIMG 11:50
PROVIDERS: ATTEND Internal Medicine
DX: Z00.00 Encounter for general adult medical examination without abnormal findings (principal)

== ENCOUNTER 2021-05-27 10:30 | Outpatient (RCR) | payer OTHER | END 2021-05-29 | LOC: M PT 10:30 | PROVIDERS: ATTEND Orthopaedic Surgery | DX: M62.81 Muscle weakness (generalized) (principal) ==

== ENCOUNTER → 2021-05-27 | Outpatient (CLI) | payer OTHER ==
--- NOTE | 2021-05-27 12:20 | REP ---
INDICATION: ORTHOPEDIC AFTERCARE. COMPARISON: 05/18/2021 TECHNIQUE: Four views FINDINGS: Patellar fixation status quo. There is no evidence of an acute fracture, dislocation, or subluxation. IMPRESSION: No acute osseous abnormality or evidence of significant change in the appearance of the osseous structures compared to the prior exam. <Electronically signed by Christian Zaragoza > 05/27/21 [id number]
== END ==
LOC: M SOG 11:54
PROVIDERS: ATTEND Orthopaedic Surgery
DX: Z47.89 Encounter for other orthopedic aftercare (principal)

== ENCOUNTER → 2021-06-27 | Outpatient (CLI) | payer OTHER | LOC: M LABSMTC 10:15 | PROVIDERS: ATTEND Anesthesiology | DX: Z01.818 Encounter for other preprocedural examination (principal); Z11.52 Encounter for screening for COVID-19 ==

== ENCOUNTER 2021-07-01 06:01 | Day surgery (SDC) | payer OTHER ==
[~2021-07-01] VITALS: Ht 180.3 cm; Wt 75.3 kg
[~2021-07-01 06:01] MED LIST changes: +LR 1,000 ML IV ONE
--- OUTSIDE RECORDS SUMMARY | 2021-07-01 06:05 | CCD | Continuity of Care Document ---
Author Author Margarita WOO DO Organization Unknown Address [address] [facility] [place] [address] Phone [phone] Care Team Providers Care Dimensional Engineer Name Role Phone Isma Bergman M.D. AUTM [phone] AUTM Unavailable Problems Description No Information Available Social History Type Date Description Comments Sex Unknown ETOH Use Occasionally consumes alcohol Recreational Drug Use Current Marijuana Tobacco Use Start: Unknown 1/2 PPD x17 years Allergies and adverse reactions Active Allergies Criticality Reaction | Severity Comments Date Bactrim Unable to assess criticality Hives 05/13/2021 Inactive Allergies NKDA Unable to assess criticality 04/05/2021 Medications Active Medications SIG Qnty Indications Ordering Provide r Date Ibuprofen 200mg Capsules by mouth as needed Unknown Tylenol 8 Hour 650mg Tablets ER 1 tab by mouth three times a day before meals Unknown Doxycycline Hyclate 100mg Tablets take one tablet by mouth every 12 hours Unknown 0 Immunizations Description No Information Available Vital Signs Date Vital Result Comment 05/27/2021 11:33am Body Temperature 96.6 F 05/13/2021 10:54am BP Systolic 120 mmHg BP Diastolic 72 mmHg Body Temperature 98.5 F Height 71 inches 5'11" Weight 150.00 lb stated BMI (Body Mass Index) 20.9 kg/m2 [place] Body Weight 172 lb Weight 68.040 kg BSA (Body Surface Area) 1.87 m2 Results Test Acquired Date Facility Test Result H/L Range Note Complete Blood Count 04/15/2021 [facility] enter Main Lab [address] [place] [address] [phone] White Blood Count 7.7 10 Normal 4.0-10.0 Red Blood Count 4.17 10 Low 4.30-6.10 Hemoglobin 11.5 g/dL Low 13.5-17.5 Hematocrit 36.0 % Low 42.0-52.0 Mean Corpuscular Volume 86.3 fl Normal 80.0-96.0 Mean Corpuscular Hemoglobin 27.6 pg Normal 27.0-33.0 Mean Corpuscular HGB Conc 31.9 g/dL Low 32.0-36.5 Red Cell Distribution Width 13.8 % Normal 11.5-14.5 Platelet Count, Automated 248 10 Normal 150-450 Nucleated Red Blood Cell % 0.0 % Normal 0-0 Basic Metabolic Profile 04/15/2021 [facility] Main Lab [address] [place] [address] [phone] Glucose, Fasting 140 mg/dL High 70-100 Blood Urea Nitrogen 7 mg/dL Normal 7-18 Creatinine For GFR 0.75 mg/dL Normal 0.70-1.30 Glomerular Filtration Rate > 60.0 Normal >60 1 Sodium Level 141 mEq/L Normal 136-145 Potassium Serum 4.2 mEq/L Normal 3.5-5.1 Chloride Level 105 mEq/L Normal 98-107 Carbon Dioxide Level 29 mEq/L Normal 21-32 Anion Gap 7 mEq/L Low 8-16 Calcium Level 8.6 mg/dL Normal 8.5-10.1 Complete Blood Count 04/14/2021 [facility] Main Lab [address] [place], [place] [phone] White Blood Count 5.8 10 Normal 4.0-10.0 Red Blood Count 4.33 10 Normal 4.30-6.10 Hemoglobin 12.2 g/dL Low 13.5-17.5 Hematocrit 38.2 % Low 42.0-52.0 Mean Corpuscular Volume 88.2 fl Normal 80.0-96.0 Mean Corpuscular Hemoglobin 28.2 pg Normal 27.0-33.0 Mean Corpuscular HGB Conc 31.9 g/dL Low 32.0-36.5 Red Cell Distribution Width 13.8 % Normal 11.5-14.5 Platelet Count, Automated 264 10 Normal 150-450 Nucleated Red Blood Cell % 0.0 % Normal 0-0 Prothrombin Time/Inr 04/14/2021 [facility] enter Main Lab [address] [place] [address] [phone] Prothrombin Time 13.6 seconds Normal 12.7-14.5 Inr 1.00 Normal 2 Basic Metabolic Profile 04/14/2021 [facility] Main Lab [address] [place] [address] [phone] Glucose, Fasting 109 mg/dL High 70-100 Blood Urea Nitrogen 8 mg/dL Normal 7-18 Creatinine For GFR 0.85 mg/dL Normal 0.70-1.30 Glomerular Filtration Rate > 60.0 Normal >60 3 Sodium Level 143 mEq/L Normal 136-145 Potassium Serum 3.8 mEq/L Normal 3.5-5.1 Chloride Level 108 mEq/L High 98-107 Carbon Dioxide Level 30 mEq/L Normal 21-32 Anion Gap 5 mEq/L Low 8-16 Calcium Level 8.8 mg/dL Normal 8.5-10.1 Culture Wound And Gram Stain 04/14/2021 [facility] Main Lab [address] [place] [phone] Gram Stain (SEE NOTE) Normal 4 Laboratory test finding 04/14/2021 [facility] Main Lab [address] [place] [address] [phone] Anaerobic Culture (SEE NOTE) 5 Laboratory test finding 04/14/2021 [facility] Main Lab [address] [place] [address] [phone] Coronavirus 2019 Nasopharygeal <pending> 6 Sars Covid-19 Amplification NEGATIVE Normal Negative 7 1 Units are mL/min/1.73 m2 Chronic Kidney Disease Staging per NKF: Stage I & II GFR >=60 Normal to Mildly Decreased Stage III GFR 30-59 Moderately Decreased Stage IV GFR 15-29 Severely Decreased Stage V GFR <15 Very Little GFR Left ESRD GFR <15 on [employer]OR AND EMPLOYMENT PARALEGAL 2 THERAPUTIC HUMAN INR VALUES INDICATIONS NORMAL RANGES PROPHYLAXIS/TREATMENT OF: VENOUS THROMBOSIS 2.0-3.0 PULMONARY EMBOLISM 2.0-3.0 PREVENTION OF SYSTEMIC EMBOLISM FROM: TISSUE HEART VALVES 2.0-3.0 ACUTE MYOCARDIAL INFARCTION 2.0-3.0 VALVULAR HEART DISEASE 2.0-3.0 ATRIAL FIBRILLATION 2.0-3.0 MECHANICAL VALVES(HIGH RISK) 2.5-3.5 RECURRENT MYOCARDIAL INFARCTION 2.5-3.5 3 Units are mL/min/1.73 m2 Chronic Kidney Disease Staging per NKF: Stage I & II GFR >=60 Normal to Mildly Decreased Stage III GFR 30-59 Moderately Decreased Stage IV GFR 15-29 Severely Decreased Stage V GFR <15 Very Little GFR Left ESRD GFR <15 on LABOR AND EMPLOYMENT PARALEGAL 4 MODERATE WBCS NO ORGANISMS SEEN 5 Comments: LEFT KNEE PATELLA By: GF Time: 184 Time: 1838 6 Comments: SURGICAL PROCEDURE By: PREOP NURSE Time: 1320 7 A false negative result may occur if a specimen is improperly collected, transported or handled. False negative results may also occur if inadequate numbers of organisms are present in the specimen. As with any molecular test, mutations within the target regions of [employer] SARS-CoV-2 could affect primer and/or probe binding resulting in failure to detect the presence of virus. This test cannot rule out diseases caused by other bacterial or viral pathogens. DISCLAIMER: Testing was performed using the [employer] SARS-CoV-2 test. This test was developed and its performance characteristics determined by [employer]. This test has not been FDA cleared or approved. This test has been authorized by FDA under an Emergency Use Authorization (EUA). This test is only authorized for the duration of time the declaration that circumstances exist justifying the authorization of the emergency use of in vitro diagnostic tests for detection of SARS-CoV-2 virus and/or diagnosis of COVID-19 infection under section 564(b)(1) of the Act, 21 U.S.C. 360bbb-3(b)(1), unless the authorization is terminated or revoked sooner. Procedures Date Code Description Status 05/13/2021 04503 Office/Outpatient New Low MDM 30 -44 Minutes Completed Medical Devices Description No Information Available Encounters Type Date Location Provider Dx Diagnosis Office Visit 05/13/2021 11:00a [facility] Surgery Practice Porfirio Gonzalez DO 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 Office Visit 05/05/2021 9:30a [facility] Orthopedics Melchor Schmidt MD Z48.89 Encounter for other specified surgical aftercare Office Visit 04/29/2021 11:20a [facility] Orthopedics Olu Pack, Maur ice, DO S82.042D Displ commnt fx left patella, subs for c los fx w routn heal T81.40xD Infection following a proced ure, unspecified, subs Office Visit 04/26/2021 9:40a [facility] Natasha Woo DO S82.042D Displ commnt fx left patella, subs for c los fx w routn heal Office Visit 04/14/2021 10:30a [facility] Melchor Schmidt MD Z48.89 Encounter for other specified surgical aftercare Assessments Date Code Description Provider 05/27/2021 Z47.89 Encounter for other orthopedic a ftercare Anival Woo DO 05/13/2021 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 Porfirio Gonzalez DO 05/05/2021 Z48.89 Encounter for other specified valenzuela rgical aftercare Melchor Schmidt MD 04/29/2021 S82.042D Displaced comminuted fracture of left patella, subsequent encounter for closed fracture with routine healing Anival Woo DO 04/29/2021 T81.40xD Infection following a procedure, unspecified, subsequent encounter Anival Woo DO 04/26/2021 S82.042D Displaced comminuted fracture of left patella, subsequent encounter for closed fracture with routine healing Anival Woo DO 04/14/2021 Z48.89 Encounter for other specified valenzuela rgical aftercare Melchor Schmidt MD 04/05/2021 S82.002A Unspecified fracture of left patella, initial encounter for closed fracture El Mazariegos MD 04/05/2021 Z48.89 Encounter for other specified valenzuela rgical aftercare El Mazariegos MD Plan of Treatment Future Appointment(s):* 07/08/2021 2:00 pm - Anival Woo DO at [facility] Orthoped[facility] * 05/31/2021 11:00 am - Porfirio Gonzalez DO at [facility] Surgery [facility] 05/27/2021 - Anival Woo DO* Z47.89 Encounter for other orthopedic aftercare* New Xrays:* XR Knee 1 Or 2 Views Left, Ordered: 05/27/21 * Comments:* Follow-up 6 weeks for reexamination repeat x-rays Functional Status Description No Information Available Mental Status Description No Information Available Referrals Description No Information Available
--- OUTSIDE RECORDS SUMMARY | 2021-07-01 06:05 | CCD | Continuity of Care Document ---
Author Author Margarita GONZALEZ DO Organization Unknown Address [address] [facility], [address] [place] [address] Phone [phone] Care Team Providers Care Salesperson Flying Squad Name Role Phone Isma Bergman M.D. AUTM [phone] AUTM Unavailable Problems Description No Information Available [...] Available Vital Signs Date Vital Result Comment 05/13/2021 10:54am BP Systolic 120 mmHg BP Diastolic 72 mmHg Body Temperature 98.5 F Height 71 inches 5'11" Weight 150.00 lb stated BMI (Body Mass Index) 20.9 kg/m2 [place] Body Weight 172 lb Weight 68.040 kg BSA (Body Surface Area) 1.87 m2 05/05/2021 9:33am Body Temperature 97.6 F Results Test Acquired Date Facility Test Result H/L Range Note Complete Blood Count 04/15/2021 [facility] enter Main Lab [address] [place], [place] [id number] [phone] White Blood Count 7.7 10 Normal 4.0-10.0 [...] % Normal 0-0 Basic Metabolic Profile 04/15/2021 [facility] Main Lab [address] [place] [address] [phone] Glucose, Fasting 140 mg/dL High 70-100 Blood [...] mg/dL Normal 8.5-10.1 Complete Blood Count 04/14/2021 [facility] Main Lab [address] [place] [address] [phone] White Blood Count 5.8 10 Normal 4.0-10.0 [...] 0.0 % Normal 0-0 Prothrombin Time/Inr 04/14/2021 [facility] enter Main Lab [address] [place] [address] [phone] Prothrombin Time 13.6 seconds Normal 12.7-14.5 Inr 1.00 Normal 2 Basic Metabolic Profile 04/14/2021 [facility] Main Lab [address] [place] [address] [phone] Glucose, Fasting 109 mg/dL High 70-100 Blood [...] 8.5-10.1 Culture Wound And Gram Stain 04/14/2021 [facility] Main Lab [address] [place] [address] [phone] Gram Stain (SEE NOTE) Normal 4 Laboratory test finding 04/14/2021 [facility] Main Lab [address] [place] [address] [phone] Anaerobic Culture (SEE NOTE) 5 Laboratory test finding 04/14/2021 [facility] Main Lab [address] [place] [address] [phone] Coronavirus 2019 Nasopharygeal <pending> 6 Sars Covid-19 Amplification NEGATIVE Normal Negative 7 1 Units are mL/min/1.73 m2 Chronic Kidney Disease Staging per NKF: Stage I & II GFR >=60 Normal to Mildly Decreased Stage III GFR 30-59 Moderately Decreased Stage IV GFR 15-29 Severely Decreased Stage V GFR <15 Very Little GFR Left ESRD GFR <15 on [employer] 2 THERAPUTIC HUMAN INR VALUES INDICATIONS NORMAL [...] Little GFR Left ESRD GFR <15 on [employer]COM[employer] 4 MODERATE WBCS NO ORGANISMS SEEN 5 Comments: LEFT KNEE PATELLA By: GF Time: 184 Time: 183 6 Comments: SURGICAL PROCEDURE By: PREOP NURSE [...] pathogens. DISCLAIMER: Testing was performed using the [employer] SARS-CoV-2 test. This test was developed and its performance characteristics determined by [employer]. This test has not been FDA cleared [...] sooner. Procedures Date Code Description Status 05/13/2021 96960 Office/Outpatient New Low MDM 30 -44 Minutes Completed Medical Devices Description No Information Available Encounters Type Date Location Provider Dx Diagnosis Office Visit 05/13/2021 11:00a [facility] Surgery Practice Porfirio Gonzalez DO 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 Office Visit 05/05/2021 9:30a [facility] Orthopedics Melchor Schmidt MD Z48.89 Encounter for other specified surgical aftercare Office Visit 04/29/2021 11:20a [facility] Orthopedics Olu Pack, Maur ice, DO S82.042D Displ commnt fx left patella, subs for c los fx w routn heal T81.40xD Infection following a proced ure, unspecified, subs Office Visit 04/26/2021 9:40a [facility] Natasha Rojo DO S82.042D Displ commnt fx left patella, subs for c los fx w routn heal Office Visit 04/14/2021 10:30a [facility] Orthopedics Melchor Schmidt MD Z48.89 Encounter for other specified surgical aftercare Assessments Date Code Description Provider 05/13/2021 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 Porfirio Gonzalez , 05/05/2021 Z48.89 Encounter for other specified valenzuela rgical aftercare Melchor Schmidt MD 04/29/2021 S82.042D Displaced comminuted fracture of left patella, subsequent encounter for closed fracture with routine healing Anival Rojo, 04/29/2021 T81.40xD Infection following a procedure, unspecified, subsequent encounter Anival Rojo DO 04/26/2021 S82.042D Displaced comminuted fracture of left patella, subsequent encounter for closed fracture with routine healing Anival Rojo, 04/14/2021 Z48.89 Encounter for other specified valenzuela rgical aftercare Melchor Schmidt MD 04/05/2021 S82.002A Unspecified fracture of left patella, initial encounter for closed fracture El Mazariegos MD 04/05/2021 Z48.89 Encounter for other specified valenzuela rgical aftercare El Mazariegos MD Plan of Treatment Future Appointment(s):* 05/31/2021 11:00 am - Porfirio Gonzalez DO at [facility] Surgery Practice * 05/19/2021 10:00 am - Melchor Schmidt MD at [facility] Orthopedics 05/13/2021 - Porfirio Gonzalez DO* 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* Comments:* 30 y/o male with perianal abscess and possible fistula. He claims to have drainage and itching without the swelling which suggest a fistula. Currently this is i nfected and swollen. I recommend to continue with warm compresses and abx for now and follow up with me in 2 weeks. I will then re-evaluate, and possibly set him up in the OR for exam under anesthesia. Functional Status Description No Information Available Mental Status Description No Information Available Referrals Description No Information Available
--- OUTSIDE RECORDS SUMMARY | 2021-07-01 06:05 | CCD | Continuity of Care Document ---
Author Author Margarita WOO DO Organization Unknown Address [address] [place] [address], [facility] [place] [address] Phone [phone] Care Team Providers Care Professor Of Management Name Role Phone Isma Bergman M.D. AUTM [phone] AUTM Unavailable Problems Description No Information Available Social History Type Date Description Comments Sex Unknown ETOH Use Occasionally consumes alcohol Recreational Drug Use Current Marijuana Tobacco Use Start: Unknown 1/2 PPD Allergies and adverse reactions Description No Known Drug Allergies Medications Active Medications SIG Qnty Indications Ordering Provide r Date Ibuprofen 200mg Capsules by mouth as needed Unknown Tylenol 8 Hour 650mg Tablets ER 1 tab by mouth three times a day before meals Unknown Oxycodone-Acetaminophen 5-325mg Ta blets Take 1 2 Tablets By Mouth Three Times A Day as Needed For Pain Maximum Daily DO Unknown Immunizations Description No Information Available Vital Signs Date Vital Result Comment 05/05/2021 9:33am Body Temperature 97.6 F 04/29/2021 10:55am Body Temperature 97.1 F Results Test Acquired Date Facility Test Result H/L Range Note Complete Blood Count 04/15/2021 [facility] enter Main Lab [address] [place] [address] [phone] White Blood Count 7.7 10 Normal 4.0-10.0 [...] % Normal 0-0 Basic Metabolic Profile 04/15/2021 [facility] Main Lab [address] [place] [address] [phone] Glucose, Fasting 140 mg/dL High 70-100 Blood [...] mg/dL Normal 8.5-10.1 Complete Blood Count 04/14/2021 [facility] Lab [address] [place] [address] [phone] White Blood Count 5.8 10 Normal 4.0-10.0 [...] 0.0 % Normal 0-0 Prothrombin Time/Inr 04/14/2021 [facility] Lab [address] [place] [address] [phone] Prothrombin Time 13.6 seconds Normal 12.7-14.5 Inr 1.00 Normal 2 Basic Metabolic Profile 04/14/2021 [facility] Main Lab [address] [place], [place] 0379[address] [phone] Glucose, Fasting 109 mg/dL High 70-100 Blood [...] 8.5-10.1 Culture Wound And Gram Stain 04/14/2021 [facility] Main Lab [address] [place] [address] [phone] Gram Stain (SEE NOTE) Normal 4 Laboratory test finding 04/14/2021 [facility] Main Lab [address] [place] [address] [phone] Anaerobic Culture (SEE NOTE) 5 Laboratory test finding 04/14/2021 [facility] Main Lab [address] [place] [address] [phone] Coronavirus 2019 Nasopharygeal <pending> 6 Sars Covid-19 Amplification NEGATIVE Normal Negative 7 1 Units are mL/min/1.73 m2 Chronic Kidney Disease Staging per NKF: Stage I & II GFR >=60 Normal to Mildly Decreased Stage III GFR 30-59 Moderately Decreased Stage IV GFR 15-29 Severely Decreased Stage V GFR <15 Very Little GFR Left ESRD GFR <15 on WREATH AND GARLAND MAKER 2 THERAPUTIC HUMAN INR VALUES INDICATIONS NORMAL [...] Little GFR Left ESRD GFR <15 on WREATH [employer] GARLAND MAKER 4 MODERATE WBCS NO ORGANISMS SEEN 5 Comments: LEFT KNEE PATELLA By: GF Time: 1844 Time: 1838 6 Comments: SURGICAL PROCEDURE By: [...] pathogens. DISCLAIMER: Testing was performed using the [employer] SARS-CoV-2 test. This test was developed and its performance characteristics determined by [employer]. This test has not been FDA cleared [...] authorization is terminated or revoked sooner. Procedures Description No Information Available Medical Devices Description No Information Available Encounters Type Date Location Provider Dx Diagnosis Office Visit 05/05/2021 9:30a [facility] Melchor Schmidt MD Z48.89 Encounter for other specified surgical aftercare Office Visit 04/29/2021 11:20a [facility] Natasha Woo, DO S82.042D Displ commnt fx left patella, subs for c los fx w routn heal T81.40xD Infection following a proced ure, unspecified, subs Office Visit 04/26/2021 9:40a [facility] Natasha Woo, DO S82.042D Displ commnt fx left patella, subs for c los fx w routn heal Office Visit 04/14/2021 10:30a [facility] Melchor Schmidt MD Z48.89 Encounter for other specified surgical aftercare Assessments Date Code Description Provider 05/05/2021 Z48.89 Encounter for other specified valenzuela [...] Mazariegos MD Plan of Treatment Future Appointment(s):* 05/13/2021 11:00 am - Porfirio Gonzalez DO at [facility] * 05/19/2021 10:00 am - Melchor Schmidt MD at [facility] 05/05/2021 - Melchor Schmidt MD* Z48.89 Encounter for other specified surgical aftercare Functional Status Description No Information Available Mental Status Description No Information Available Referrals Description No Information Available
--- OUTSIDE RECORDS SUMMARY | 2021-07-01 06:05 | CCD | Continuity of Care Document ---
Author Author Margarita GONZALEZ DO Organization Unknown Address [address] [facility], [address] [place] [address] Phone [phone] Care Team Providers Care Data Center Solutions Architect Name Role Phone Isma Bergman M.D. AUTM [phone] AUTM Unavailable Problems Description No Information Available [...] stated BMI (Body Mass Index) 20.9 kg/m2 [place] Body Weight 172 lb Weight 68.040 kg BSA (Body Surface Area) 1.87 m2 05/05/2021 9:33am Body Temperature 97.6 F Results Test Acquired Date Facility Test Result H/L Range Note Complete Blood Count 04/15/2021 [facility] enter Main Lab [address] [place], [place] [id number] [phone] White Blood Count 7.7 10 Normal 4.0-10.0 [...] % Normal 0-0 Basic Metabolic Profile 04/15/2021 [facility] Main Lab [address] [place] [address] [phone] Glucose, Fasting 140 mg/dL High 70-100 Blood [...] mg/dL Normal 8.5-10.1 Complete Blood Count 04/14/2021 [facility] Main Lab [address] [place] [address] [phone] White Blood Count 5.8 10 Normal 4.0-10.0 [...] 0.0 % Normal 0-0 Prothrombin Time/Inr 04/14/2021 [facility] enter Main Lab [address] [place] [address] [phone] Prothrombin Time 13.6 seconds Normal 12.7-14.5 Inr 1.00 Normal 2 Basic Metabolic Profile 04/14/2021 [facility] Main Lab [address] [place] [address] [phone] Glucose, Fasting 109 mg/dL High 70-100 Blood [...] 8.5-10.1 Culture Wound And Gram Stain 04/14/2021 [facility] Main Lab [address] [place] [address] [phone] Gram Stain (SEE NOTE) Normal 4 Laboratory test finding 04/14/2021 [facility] Main Lab [address] [place] [address] [phone] Anaerobic Culture (SEE NOTE) 5 Laboratory test finding 04/14/2021 [facility] Main Lab [address] [place] [address] [phone] Coronavirus 2019 Nasopharygeal <pending> 6 Sars Covid-19 Amplification NEGATIVE Normal Negative 7 1 Units are mL/min/1.73 m2 Chronic Kidney Disease Staging per NKF: Stage I & II GFR >=60 Normal to Mildly Decreased Stage III GFR 30-59 Moderately Decreased Stage IV GFR 15-29 Severely Decreased Stage V GFR <15 Very Little GFR Left ESRD GFR <15 on CALL CENTER OPERATOR 2 THERAPUTIC HUMAN INR VALUES INDICATIONS NORMAL [...] Little GFR Left ESRD GFR <15 on CALL CENTER OPERATOR 4 MODERATE WBCS NO ORGANISMS SEEN 5 [...] pathogens. DISCLAIMER: Testing was performed using the [employer] SARS-CoV-2 test. This test was developed and its performance characteristics determined by [employer] This test has not been FDA cleared [...] Provider Dx Diagnosis Office Visit 05/05/2021 9:30a [facility] Melchor Schmidt MD Z48.89 Encounter for other specified surgical aftercare Office Visit 04/29/2021 11:20a 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 Porfirio Gonzalez DO 05/05/2021 Z48.89 Encounter for other specified valenzuela rgical aftercare Melchor Schmidt MD 04/29/2021 S82.042D Displaced comminuted fracture of left patella, subsequent encounter for closed fracture with routine healing Anival Rojo DO 04/29/2021 T81.40xD Infection following a procedure, unspecified, subsequent encounter Anival Rojo DO 04/26/2021 S82.042D Displaced comminuted fracture of left patella, subsequent encounter for closed fracture with routine healing Anival Rojo DO 04/14/2021 Z48.89 Encounter for other specified valenzuela rgical aftercare Melchor Schmidt MD 04/05/2021 S82.002A Unspecified fracture of left patella, initial encounter for closed fracture El Mazariegos MD 04/05/2021 Z48.89 Encounter for other specified valenzuela rgical aftercare El Mazariegos MD Plan of Treatment Future Appointment(s):* 05/31/2021 11:00 am - Porfirio Gonzalez DO at [facility] * 05/19/2021 10:00 am - Melchor Schmidt MD at [facility] 05/13/2021 - Porfirio Gonzalez DO* K60.3 Anal [...]
--- OUTSIDE RECORDS SUMMARY | 2021-07-01 06:05 | CCD ---
Author Author [facility] Organization [facility] Address Unknown Phone Unavailable Care Team Providers Care Charrer Name Role Phone Fernanda Mckeon PROBLEMS Type Condition ICD9-CM Code CWM30-HT Code Onset Dates Condition S tatus W/U Status Risk SNOMED Code Notes Problem Cigarette nicotine dependence without complication F17.210 Active confirmed [id number] ALLERGIES Allergen (clinical drug ingredient) Drug/Non Drug Allergy do cumented on EMR Reaction Allergy Type Onset Date Status sulfamethoxazole / trimethoprim Bactrim DS([facility] Code:[address]-7 1) Hives Drug Allergy Active ENCOUNTERS from 1989 to 2021-05-10 Encounter Location Date Provider Diagnosis [address] [phone] [place] [address] Apr, Fernanda Mckeon IMMUNIZATIONS Vaccine Route Administration Date Status Influenza 18 yrs & older [employer] Unknown Jul 02, 2020 Administered SOCIAL HISTORY Sex Assigned At : Social History Observation Description Sex Assigned At Unknown Education: Question Answer Notes Level of Education: Not finished High School Audit Question Answer Notes Total Score: 1 Interpretation: Alcohol Education Sexual Hx: Question Answer Notes Had sex in the last 12 months (vaginal, oral, or anal)? Yes Have you ever had an STD? No with Women only Use protection? No Drug and Alcohol Question Answer Notes Total Score: 0 Interpretation: No problems reported REASON FOR REFERRAL No Information VITAL SIGNS No information MEDICATIONS Medication SIG (Take, Route, Frequency, Duration) Notes Start Da te End Date Status Amoxicillin-Pot Clavulanate 875-125 MG 1 tablet Orally every 12 hrs for 7 day(s) Oct, Active PROCEDURES No Information RESULTS No Results REASON FOR VISIT req appt. MEDICAL (GENERAL) HISTORY Type Description Date Surgical History No Surgical history information Goals Section No Information Health Concerns No Information MEDICAL EQUIPMENT No Information MENTAL STATUS No Information FUNCTIONAL STATUS No Information ASSESSMENTS No Information PLAN OF TREATMENT No Information Insurance Providers Payer Name Payer Address Payer Phone Insured Name Patient Relati onship to Insured Coverage Start Date Coverage End Date [facility] CLAIM[facility] DEPT [address] [facility] [phone] KHURRAM CARSON self
--- OUTSIDE RECORDS SUMMARY | 2021-07-01 06:05 | CCD ---
Continuity of Care Document (CCD) Created on: 05/27/2021 Margarita Steve External Reference #: [id number] : 1990 Sex: Male Author Author Margarita WOO DO Organization Unknown Address [address] [facility] [place] [address] Phone [phone] Care Team Providers Care Hospice Clinical Supervisor Name Role Phone Isma Bergman M.D. AUTM [phone] AUTM Unavailable Problems Description No Information Available [...] stated BMI (Body Mass Index) 20.9 kg/m2 [place] Body Weight 172 lb Weight 68.040 kg BSA (Body Surface Area) 1.87 m2 Results Test Acquired Date Facility Test Result H/L Range Note Complete Blood Count 04/15/2021 [facility] enter Main Lab [address] [place] [address] [phone] White Blood Count 7.7 10 Normal 4.0-10.0 [...] % Normal 0-0 Basic Metabolic Profile 04/15/2021 [facility] Main Lab [address] [place] [address] [phone] Glucose, Fasting 140 mg/dL High 70-100 Blood [...] mg/dL Normal 8.5-10.1 Complete Blood Count 04/14/2021 [facility] Main Lab [address] [place], [place] 4[address] [phone] White Blood Count 5.8 10 Normal 4.0-10.0 [...] 0.0 % Normal 0-0 Prothrombin Time/Inr 04/14/2021 [facility] enter Main Lab [address] [place] [address] [phone] Prothrombin Time 13.6 seconds Normal 12.7-14.5 Inr 1.00 Normal 2 Basic Metabolic Profile 04/14/2021 [facility] Main Lab [address] [place] [address] [phone] Glucose, Fasting 109 mg/dL High 70-100 Blood [...] 8.5-10.1 Culture Wound And Gram Stain 04/14/2021 [facility] Main Lab [address] [place] [address] [phone] Gram Stain (SEE NOTE) Normal 4 Laboratory test finding 04/14/2021 [facility] Main Lab [address] [place] [address] [phone] Anaerobic Culture (SEE NOTE) 5 Laboratory test finding 04/14/2021 [facility] Main Lab [address] [place] [address] [phone] Coronavirus 2019 Nasopharygeal <pending> 6 Sars Covid-19 Amplification NEGATIVE Normal Negative 7 1 Units are mL/min/1.73 m2 Chronic Kidney Disease Staging per NKF: Stage I & II GFR >=60 Normal to Mildly Decreased Stage III GFR 30-59 Moderately Decreased Stage IV GFR 15-29 Severely Decreased Stage V GFR <15 Very Little GFR Left ESRD GFR <15 on FIVE ROLL REFINER BATCH MIXER 2 THERAPUTIC HUMAN INR VALUES INDICATIONS NORMAL [...] Little GFR Left ESRD GFR <15 on FIVE ROLL REFINER BATCH MIXER 4 MODERATE WBCS NO ORGANISMS SEEN 5 [...] pathogens. DISCLAIMER: Testing was performed using the [employer] SARS-CoV-2 test. This test was developed and its performance characteristics determined by [employer]. This test has not been FDA cleared [...] sooner. 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 Office Visit 05/05/2021 9:30a [facility] Melchor Schmidt MD Z48.89 Encounter for other specified surgical aftercare Office Visit 04/29/2021 11:20a [facility] Olu Pack, Maur ice, DO S82.042D Displ commnt fx left patella, subs for c los fx w routn heal T81.40xD Infection following a proced ure, unspecified, subs Office Visit 04/26/2021 9:40a [facility] Natasha Woo DO S82.042D Displ commnt fx left patella, subs for c los fx w routn heal Office Visit 04/14/2021 10:30a [facility] Melchor Schmidt MD Z48.89 Encounter for other [...] 2:00 pm - Anival Woo DO at [facility] * 05/31/2021 11:00 am - Porfirio Gonzalez DO at [facility] 05/27/2021 - Anival Woo DO* Z47.89 Encounter for other orthopedic aftercare* New Xrays:* XR Knee 1 Or 2 Views Left, Ordered: 05/27/21 * Comments:* Follow-up 6 weeks for reexamination repeat x-rays Functional Status Description No Information Available Mental Status Description No Information Available Referrals Description No Information Available
--- OUTSIDE RECORDS SUMMARY | 2021-07-01 06:05 | CCD | Continuity of Care Document ---
Author Author Margarita WOO DO Organization Unknown Address [address] [facility], [facility] [address] [place] [address] Phone [phone] Care Team Providers Care Chief Investment Officer Name Role Phone Isma Bergman M.D. AUTM [phone] AUTM Unavailable Problems Description No Information Available [...] stated BMI (Body Mass Index) 20.9 kg/m2 [place] Body Weight 172 lb Weight 68.040 kg BSA (Body Surface Area) 1.87 m2 Results Test Acquired Date Facility Test Result H/L Range Note Complete Blood Count 04/15/2021 [facility] enter Main Lab [address] [place] [address] [phone] White Blood Count 7.7 10 Normal 4.0-10.0 [...] % Normal 0-0 Basic Metabolic Profile 04/15/2021 [facility] Main Lab [address] [place] [address] [phone] Glucose, Fasting 140 mg/dL High 70-100 Blood [...] mg/dL Normal 8.5-10.1 Complete Blood Count 04/14/2021 [facility] Main Lab 0 [place], [place] 0479[address] [phone] White Blood Count 5.8 10 Normal 4.0-10.0 [...] 0.0 % Normal 0-0 Prothrombin Time/Inr 04/14/2021 [facility] enter Main Lab [address] [place] [address] [phone] Prothrombin Time 13.6 seconds Normal 12.7-14.5 Inr 1.00 Normal 2 Basic Metabolic Profile 04/14/2021 [facility] Main Lab [address] [place] [address] [phone] Glucose, Fasting 109 mg/dL High 70-100 Blood [...] 8.5-10.1 Culture Wound And Gram Stain 04/14/2021 [facility] Main Lab [address] [place] [address] [phone] Gram Stain (SEE NOTE) Normal 4 Laboratory test finding 04/14/2021 [facility] Main Lab [address] [place] [address] [phone] Anaerobic Culture (SEE NOTE) 5 Laboratory test finding 04/14/2021 [facility] Main Lab [address] [place] [address] [phone] Coronavirus 2019 Nasopharygeal <pending> 6 Sars Covid-19 Amplification NEGATIVE Normal Negative 7 1 Units are mL/min/1.73 m2 Chronic Kidney Disease Staging per NKF: Stage I & II GFR >=60 Normal to Mildly Decreased Stage III GFR 30-59 Moderately Decreased Stage IV GFR 15-29 Severely Decreased Stage V GFR <15 Very Little GFR Left ESRD GFR <15 on EQUIPMENT SERVICE TECHNICIAN 2 THERAPUTIC HUMAN INR VALUES INDICATIONS NORMAL [...] Little GFR Left ESRD GFR <15 on EQUIPMENT SERVICE TECHNICIAN 4 MODERATE WBCS NO ORGANISMS SEEN 5 [...] pathogens. DISCLAIMER: Testing was performed using the [employer] SARS-CoV-2 test. This test was developed and its performance characteristics determined by [employer]. This test has not been FDA cleared [...] sooner. 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 Office Visit 05/05/2021 9:30a [facility] Melchor Schmidt MD Z48.89 Encounter for other specified surgical aftercare Office Visit 04/29/2021 11:20a [facility] Olu Pack, Maur ice, DO S82.042D Displ commnt fx left patella, subs for c los fx w routn heal T81.40xD Infection following a proced ure, unspecified, subs Office Visit 04/26/2021 9:40a [facility] Natasha Woo DO S82.042D Displ commnt fx left patella, subs for c los fx w routn heal Office Visit 04/14/2021 10:30a [facility] Melchor Schmidt MD Z48.89 Encounter for [...] 2:00 pm - Anival Woo DO at [facility] * 05/31/2021 11:00 am - Porfirio Gonzalez DO at [facility] 05/27/2021 - Anival Woo DO* Z47.89 Encounter for other orthopedic aftercare* New Xrays:* XR Knee 1 Or 2 Views Left, Ordered: 05/27/21 * Comments:* Follow-up 6 weeks for reexamination repeat x-rays Functional Status Description No Information Available Mental Status Description No Information Available Referrals Description No Information Available
--- OUTSIDE RECORDS SUMMARY | 2021-07-01 06:05 | CCD | Continuity of Care Document ---
Author Author Margarita GONZALEZ DO Organization Unknown Address [address] [facility], [address] [place] [address] Phone [phone] Care Team Providers Care Leather Production Worker Name Role Phone Isma Bergman M.D. AUTM [phone] AUTM Unavailable Problems Description No Information Available [...] three times a day before meals Unknown Immunizations Description No Information Available Vital Signs Date Vital Result Comment 05/31/2021 11:18am BP Systolic 126 mmHg BP Diastolic 74 mmHg Body Temperature 98.2 F Height 71 inches 5'11" Weight 153.12 lb BMI (Body Mass Index) 21.4 kg/m2 [place] Body Weight 172 lb Weight 69.457 kg BSA (Body Surface Area) 1.88 m2 05/27/2021 11:33am Body Temperature 96.6 F Results Test Acquired Date Facility Test Result H/L Range Note Complete Blood Count 04/15/2021 [facility] enter Main Lab [address] [place], [place] [id number] [phone] White Blood Count 7.7 10 Normal 4.0-10.0 [...] % Normal 0-0 Basic Metabolic Profile 04/15/2021 [facility] Main Lab [address] [place] [address] [phone] Glucose, Fasting 140 mg/dL High 70-100 Blood [...] mg/dL Normal 8.5-10.1 Complete Blood Count 04/14/2021 [facility] Main Lab [address] [place] [address] [phone] White Blood Count 5.8 10 Normal 4.0-10.0 [...] 0.0 % Normal 0-0 Prothrombin Time/Inr 04/14/2021 [facility] Main Lab [address] [place] [address] [phone] Prothrombin Time 13.6 seconds Normal 12.7-14.5 Inr 1.00 Normal 2 Basic Metabolic Profile 04/14/2021 [facility] Main Lab [address] [place] [address] [phone] Glucose, Fasting 109 mg/dL High 70-100 Blood [...] 8.5-10.1 Culture Wound And Gram Stain 04/14/2021 [facility] Main Lab [address] [place] [address] [phone] Gram Stain (SEE NOTE) Normal 4 Laboratory test finding 04/14/2021 [facility] Main Lab [address] [place] [address] [phone] Anaerobic Culture (SEE NOTE) 5 Laboratory test finding 04/14/2021 [facility] Main Lab [address] [place] [address] [phone] Coronavirus 2019 Nasopharygeal <pending> 6 Sars Covid-19 Amplification NEGATIVE Normal Negative 7 1 Units are mL/min/1.73 m2 Chronic Kidney Disease Staging per NKF: Stage I & II GFR >=60 Normal to Mildly Decreased Stage III GFR 30-59 Moderately Decreased Stage IV GFR 15-29 Severely Decreased Stage V GFR <15 Very Little GFR Left ESRD GFR <15 on WINDING RACK OPERATOR 2 THERAPUTIC HUMAN INR VALUES INDICATIONS [...] Little GFR Left ESRD GFR <15 on WINDING RACK OPERATOR 4 MODERATE WBCS NO ORGANISMS SEEN [...] pathogens. DISCLAIMER: Testing was performed using the [employer] SARS-CoV-2 test. This test was developed and its performance characteristics determined by [employer]. This test has not been FDA cleared [...] sooner. 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 Office Visit 05/05/2021 9:30a [facility] Melchor Schmidt MD Z48.89 Encounter for other specified surgical aftercare Office Visit 04/29/2021 11:20a [facility] Natasha Rojo, DO S82.042D Displ commnt fx left patella, subs for c los fx w routn heal T81.40xD Infection following a proced ure, unspecified, subs Office Visit 04/26/2021 9:40a [facility] Natasha Rojo DO S82.042D Displ commnt fx left patella, subs for c los fx w routn heal Office Visit 04/14/2021 10:30a [facility] Melchor Schmidt MD Z48.89 Encounter for other specified surgical aftercare Assessments Date Code Description Provider 05/31/2021 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 On physical exam there is alarge subcutaneous lump consistent with either a simple sebaceous cyst, or a perianal cyst with possible fistula. Recommendation is to take him to the OR for exam under anesthesia, with possible seton placement, possible fistulotomy, or cyst excision. The risks of the procedure include, but are not limited to, bleeding, infection, incontinence, and need for further surgery. He understands the risks and elects to proceed with the procedure. Functional Status Description No Information Available Mental Status Description No Information Available Referrals Description No Information Available
--- OUTSIDE RECORDS SUMMARY | 2021-07-01 06:05 | CCD | Continuity of Care Document ---
Author Author Margarita SCHMIDT MD Organization Unknown Address [address] , [facility] [place] [address] Phone [phone] Care Team Providers Care Director Blood Bank Name Role Phone Isma Bergman M.D. AUTM [phone] AUTM Unavailable Problems Description No Information Available [...] H/L Range Note Complete Blood Count 04/15/2021 [facility] enter Main Lab [address] [place] [address] [phone] White Blood Count 7.7 10 Normal 4.0-10.0 [...] % Normal 0-0 Basic Metabolic Profile 04/15/2021 [facility] Main Lab [address] [place] [address] [phone] Glucose, Fasting 140 mg/dL High 70-100 Blood [...] mg/dL Normal 8.5-10.1 Complete Blood Count 04/14/2021 [facility] Main Lab [address] [place] [address] [phone] White Blood Count 5.8 10 Normal 4.0-10.0 [...] 0.0 % Normal 0-0 Prothrombin Time/Inr 04/14/2021 [facility] Lab [address] [place] [address] 21814 [phone] Prothrombin Time 13.6 seconds Normal 12.7-14.5 Inr 1.00 Normal 2 Basic Metabolic Profile 04/14/2021 [facility] Main Lab [address] [place] [address] [phone] Glucose, Fasting 109 mg/dL High 70-100 Blood [...] 8.5-10.1 Culture Wound And Gram Stain 04/14/2021 [facility] Main Lab [address] [place] [address] 17828 [phone] Gram Stain (SEE NOTE) Normal 4 Laboratory test finding 04/14/2021 [facility] Main Lab [address] [place] [address] 49946 [phone] Anaerobic Culture (SEE NOTE) 5 Laboratory test finding 04/14/2021 [facility] Main Lab [address] [place] [address]26 [phone] Coronavirus 2019 Nasopharygeal <pending> 6 Sars Covid-19 Amplification NEGATIVE Normal Negative 7 1 Units are mL/min/1.73 m2 Chronic Kidney Disease Staging per NKF: Stage I & II GFR >=60 Normal to Mildly Decreased Stage III GFR 30-59 Moderately Decreased Stage IV GFR 15-29 Severely Decreased Stage V GFR <15 Very Little GFR Left ESRD GFR <15 on ADVISORY INTERNSHIP 2 THERAPUTIC HUMAN INR VALUES INDICATIONS NORMAL [...] Little GFR Left ESRD GFR <15 on ADVISORY INTERNSHIP 4 MODERATE WBCS NO ORGANISMS SEEN 5 [...] pathogens. DISCLAIMER: Testing was performed using the [employer] SARS-CoV-2 test. This test was developed and its performance characteristics determined by [employer]. This test has not been FDA cleared [...] Provider Dx Diagnosis Office Visit 05/05/2021 9:30a [facility] Melchor Schmidt MD Z48.89 Encounter for other specified surgical aftercare Office Visit 04/26/2021 9:40a [facility] Natasha Rojo DO S82.042D Displ commnt fx left patella, subs for c los fx w routn heal Office Visit 04/14/2021 10:30a [facility] MD Z48.89 Encounter for other specified surgical aftercare Assessments Date Code Description Provider 05/05/2021 Z48.89 Encounter for other specified valenzuela rgical aftercare Melchor Schmidt MD 04/29/2021 S82.042D Displaced comminuted fracture of left patella, subsequent encounter for closed fracture with routine healing Anival Rojo DO 04/26/2021 S82.042D Displaced comminuted [...] Mazariegos MD Plan of Treatment Future Appointment(s):* 05/19/2021 10:00 am - Melchor Schmidt MD at [facility] 05/05/2021 - Melchor Schmidt MD* Z48.89 Encounter for other specified surgical aftercare Functional Status Description No Information Available Mental Status Description No Information Available Referrals Description No Information Available
--- OUTSIDE RECORDS SUMMARY | 2021-07-01 06:05 | CCD | Continuity of Care Document ---
Author Author Margarita WOO DO Organization Unknown Address [address] [facility], [facility] [place] [address] Phone [phone] Care Team Providers Care Executive Housekeeper Name Role Phone Isma Bergman M.D. AUTM [phone] AUTM Unavailable Problems Description No Information Available [...] stated BMI (Body Mass Index) 20.9 kg/m2 [place] Body Weight 172 lb Weight 68.040 kg BSA (Body Surface Area) 1.87 m2 Results Test Acquired Date Facility Test Result H/L Range Note Complete Blood Count 04/15/2021 [facility] enter Main Lab [address] [place] [address] [phone] White Blood Count 7.7 10 Normal 4.0-10.0 [...] % Normal 0-0 Basic Metabolic Profile 04/15/2021 [facility] Main Lab [address] [place] [address] [phone] Glucose, Fasting 140 mg/dL High 70-100 Blood [...] mg/dL Normal 8.5-10.1 Complete Blood Count 04/14/2021 [facility] Main Lab [address] [place], [place] 0360389 [phone] White Blood Count 5.8 10 Normal 4.0-10.0 [...] 0.0 % Normal 0-0 Prothrombin Time/Inr 04/14/2021 [facility] enter Main Lab [address] [place] [address] [phone] Prothrombin Time 13.6 seconds Normal 12.7-14.5 Inr 1.00 Normal 2 Basic Metabolic Profile 04/14/2021 [facility] Main Lab [address] [place] [address] [phone] Glucose, Fasting 109 mg/dL High 70-100 Blood [...] 8.5-10.1 Culture Wound And Gram Stain 04/14/2021 [facility] Main Lab [address] [place] [address] [phone] Gram Stain (SEE NOTE) Normal 4 Laboratory test finding 04/14/2021 [facility] Main Lab [address] [place] [address] 92[address] [phone] Anaerobic Culture (SEE NOTE) 5 Laboratory test finding 04/14/2021 [facility] Main Lab [address] [place] [address] 26962 [phone] Coronavirus 2019 Nasopharygeal <pending> 6 Sars Covid-19 Amplification NEGATIVE Normal Negative 7 1 Units are mL/min/1.73 m2 Chronic Kidney Disease Staging per NKF: Stage I & II GFR >=60 Normal to Mildly Decreased Stage III GFR 30-59 Moderately Decreased Stage IV GFR 15-29 Severely Decreased Stage V GFR <15 Very Little GFR Left ESRD GFR <15 on FLAVOR ROOM WORKER 2 THERAPUTIC HUMAN INR VALUES INDICATIONS NORMAL [...] Little GFR Left ESRD GFR <15 on FLAVOR ROOM WORKER 4 MODERATE WBCS NO ORGANISMS SEEN 5 [...] pathogens. DISCLAIMER: Testing was performed using the [employer] SARS-CoV-2 test. This test was developed and its performance characteristics determined by [employer] This test has not been FDA cleared [...] sooner. 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 Office Visit 05/05/2021 9:30a [facility] Melchor Schmidt MD Z48.89 Encounter for other specified surgical aftercare Office Visit 04/29/2021 11:20a [facility] Olu Pack, Maur ice, DO S82.042D Displ commnt fx left patella, subs for c los fx w routn heal T81.40xD Infection following a proced ure, unspecified, subs Office Visit 04/26/2021 9:40a [facility] Natasha Woo DO S82.042D Displ commnt fx left patella, subs for c los fx w routn heal Office Visit 04/14/2021 10:30a [facility] Melchor Schmidt MD Z48.89 Encounter for [...] 2:00 pm - Anival Woo DO at [facility] * 05/31/2021 11:00 am - Porfirio Gonzalez DO at [facility] 05/27/2021 - Anival Woo DO* Z47.89 Encounter for other orthopedic aftercare* New Xrays:* XR Knee 1 Or 2 Views Left, Ordered: 05/27/21 * Comments:* Follow-up 6 weeks for reexamination repeat x-rays Functional Status Description No Information Available Mental Status Description No Information Available Referrals Description No Information Available
--- OUTSIDE RECORDS SUMMARY | 2021-07-01 06:05 | CCD | Continuity of Care Document ---
Author Author Margarita GONZALEZ DO Organization Unknown Address [address] [facility], [address] [place] [address] Phone [phone] Care Team Providers Care Water Leak Repairer Name Role Phone Isma Bergman M.D. AUTM [phone] AUTM Unavailable Problems Description No Information Available [...] stated BMI (Body Mass Index) 20.9 kg/m2 [place] Body Weight 172 lb Weight 68.040 kg BSA (Body Surface Area) 1.87 m2 05/05/2021 9:33am Body Temperature 97.6 F Results Test Acquired Date Facility Test Result H/L Range Note Complete Blood Count 04/15/2021 [facility] enter Main Lab [address] [place], [place] [phone] White Blood Count 7.7 10 Normal 4.0-10.0 [...] % Normal 0-0 Basic Metabolic Profile 04/15/2021 [facility] Main Lab [address] [place] [address] [phone] Glucose, Fasting 140 mg/dL High 70-100 Blood [...] mg/dL Normal 8.5-10.1 Complete Blood Count 04/14/2021 [facility] Main Lab [address] [place] [address] 30696 [phone] White Blood Count 5.8 10 Normal 4.0-10.0 [...] % Normal 0-0 Prothrombin Time/Inr 04/14/2021 [facility] enter Main Lab [address] [place] [address] [phone] Prothrombin Time 13.6 seconds Normal 12.7-14.5 Inr 1.00 Normal 2 Basic Metabolic Profile 04/14/2021 [facility] Main Lab [address] [place] [address] [phone] Glucose, Fasting 109 mg/dL High 70-100 Blood [...] 8.5-10.1 Culture Wound And Gram Stain 04/14/2021 [facility] Main Lab [address] [place] [address] 246[address] [phone] Gram Stain (SEE NOTE) Normal 4 Laboratory test finding 04/14/2021 [facility] Main Lab [address] [place] [address] 88171 [phone] Anaerobic Culture (SEE NOTE) 5 Laboratory test finding 04/14/2021 [facility] Main Lab [address] [place] [address] 32562 [phone] Coronavirus 2019 Nasopharygeal <pending> 6 Sars Covid-19 Amplification NEGATIVE Normal Negative 7 1 Units are mL/min/1.73 m2 Chronic Kidney Disease Staging per NKF: Stage I & II GFR >=60 Normal to Mildly Decreased Stage III GFR 30-59 Moderately Decreased Stage IV GFR 15-29 Severely Decreased Stage V GFR <15 Very Little GFR Left ESRD GFR <15 on CREDIT PRODUCT ANALYST 2 THERAPUTIC HUMAN INR VALUES INDICATIONS NORMAL [...] Little GFR Left ESRD GFR <15 on CREDIT PRODUCT ANALYST 4 MODERATE WBCS NO ORGANISMS SEEN 5 [...] pathogens. DISCLAIMER: Testing was performed using the [employer] SARS-CoV-2 test. This test was developed and its performance characteristics determined by [employer]. This test has not been FDA cleared [...] Provider Dx Diagnosis Office Visit 05/05/2021 9:30a [facility] Melchor Schmidt MD Z48.89 Encounter for other specified surgical aftercare Office Visit 04/29/2021 11:20a [facility] Natasha Rojo, S82.042D Displ commnt fx left patella, subs for c los fx w routn heal T81.40xD Infection following a proced ure, unspecified, subs Office Visit 04/26/2021 9:40a [facility] Natasha Rojo, DO S82.042D Displ commnt fx left patella, subs for c los fx w routn heal Office Visit 04/14/2021 10:30a [facility] Melchor Schmidt MD Z48.89 Encounter for other [...] am - Porfirio Gonzalez DO at [facility] * 05/19/2021 10:00 am - Melchor Schmidt MD at [facility] 05/13/2021 - Porfirio Gonzalez DO* K60.3 Anal [...]
--- OUTSIDE RECORDS SUMMARY | 2021-07-01 06:05 | CCD ---
Author Author [facility] Organization [facility] Address Unknown Phone Unavailable Care Team Providers Care Blintze Roller Name Role Phone Matilde Fowler Unavailable PROBLEMS Type Condition ICD9-CM Code [id number] Code Onset Dates Condition S tatus W/U Status Risk SNOMED Code Notes Problem Cigarette nicotine dependence without complication F17.210 Active confirmed 98700105 ALLERGIES Allergen (clinical drug ingredient) Drug/Non Drug Allergy do cumented on EMR Reaction Allergy Type Onset Date Status sulfamethoxazole / trimethoprim Bactrim DS([facility] Code:[address]-3 1) Hives Drug Allergy Active ENCOUNTERS from 1989 to 2021-05-13 Encounter Location Date Provider Diagnosis [address] [phone] [place] [address] Apr, Matilde Fowler IMMUNIZATIONS Vaccine Route Administration Date Status Influenza [...] Notes Start Da te End Date Status Doxycycline Hyclate 100 MG 1 capsule Orally bid for 10 day(s) Apr, Active PROCEDURES No Information RESULTS No Results REASON FOR VISIT abscess opened MEDICAL (GENERAL) HISTORY Type Description Date Surgical History Left knee x3 Goals Section No Information Health Concerns No Information MEDICAL EQUIPMENT No Information MENTAL STATUS No Information FUNCTIONAL STATUS No Information ASSESSMENTS No Information PLAN OF TREATMENT Medication Medication Name Sig Start Date Stop Date Doxycycline Hyclate 100 MG 1 capsule Orally bid for 10 day(s) Apr, Next Appt Details Provider Name:Matilde Fowler, 09-20 08:45:00 AM, [address] [facility], , [place], [address], Insurance Providers Payer Name Payer Address Payer Phone Insured Name Patient Relati onship to Insured Coverage Start Date Coverage End Date FORMERLY [facility] CORPORATE CLAIMS DEPT [address] [facility] [phone] KHURRAM CARSON self
--- OUTSIDE RECORDS SUMMARY | 2021-07-01 06:05 | CCD | Continuity of Care Document ---
Author Author Margarita WOO DO Organization Unknown Address [address] [facility], [facility] [place] [address] Phone [phone] Care Team Providers Care Car Lot Attendant Name Role Phone Isma Bergman M.D. AUTM [phone] AUTM Unavailable Problems Description No Information Available [...] lb BMI (Body Mass Index) 21.4 kg/m2 [place] Body Weight 172 lb Weight 69.457 kg BSA (Body Surface Area) 1.88 m2 05/27/2021 11:33am Body Temperature 96.6 F Results Test Acquired Date Facility Test Result H/L Range Note Complete Blood Count 04/15/2021 [facility] enter Main Lab [address] [place] [address] [phone] White Blood Count 7.7 10 Normal 4.0-10.0 [...] % Normal 0-0 Basic Metabolic Profile 04/15/2021 [facility] Main Lab [address] [place] [address] [phone] Glucose, Fasting 140 mg/dL High 70-100 Blood [...] mg/dL Normal 8.5-10.1 Complete Blood Count 04/14/2021 [facility] Main Lab [address] [place] [address] [phone] White Blood Count 5.8 10 Normal 4.0-10.0 [...] 0.0 % Normal 0-0 Prothrombin Time/Inr 04/14/2021 [facility] Main Lab [address] [place] [address] [phone] Prothrombin Time 13.6 seconds Normal 12.7-14.5 Inr 1.00 Normal 2 Basic Metabolic Profile 04/14/2021 [facility] Main Lab [address] [place] [address] [phone] Glucose, Fasting 109 mg/dL High 70-100 Blood [...] 8.5-10.1 Culture Wound And Gram Stain 04/14/2021 [facility] Main Lab [address] [place] [address] [phone] Gram Stain (SEE NOTE) Normal 4 Laboratory test finding 04/14/2021 [facility] Main Lab [address] [place] [address] [phone] Anaerobic Culture (SEE NOTE) 5 Laboratory test finding 04/14/2021 [facility] Main Lab [address] [place] [address] [phone] Coronavirus 2019 Nasopharygeal <pending> 6 Sars Covid-19 Amplification NEGATIVE Normal Negative 7 1 Units are mL/min/1.73 m2 Chronic Kidney Disease Staging per NKF: Stage I & II GFR >=60 Normal to Mildly Decreased Stage III GFR 30-59 Moderately Decreased Stage IV GFR 15-29 Severely Decreased Stage V GFR <15 Very Little GFR Left ESRD GFR <15 on OPERATOR COMMAND SUPPORT SYSTEMS 2 THERAPUTIC HUMAN INR VALUES INDICATIONS NORMAL [...] Little GFR Left ESRD GFR <15 on OPERATOR COMMAND SUPPORT SYSTEMS 4 MODERATE WBCS NO ORGANISMS SEEN 5 [...] pathogens. DISCLAIMER: Testing was performed using the [employer] SARS-CoV-2 test. This test was developed and its performance characteristics determined by [employer]. This test has not been FDA cleared [...] revoked sooner. 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 Office Visit 05/27/2021 1:00p [facility] Natasha Woo, DO T81.40xD Infection following a procedure, unspeci fied, subs S82.042D Displ commnt fx left patella , subs for clos fx w routn heal Office Visit 05/13/2021 11:00a [facility] Porfirio Gonzalez, DO 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 Office Visit 05/05/2021 9:30a [facility] Melchor Schmidt MD Z48.89 Encounter for other specified surgical aftercare Office Visit 04/29/2021 11:20a [facility] Olu Beba, Malionel ice, DO S82.042D Displ commnt fx left patella, subs for c los fx w routn heal T81.40xD Infection following a proced ure, unspecified, subs Office Visit 04/26/2021 9:40a [facility] Olu Pack, Maur ice, DO S82.042D Displ commnt fx left patella, subs for c los fx w routn heal Office Visit 04/14/2021 10:30a [facility] Melchor Schmidt MD Z48.89 Encounter for other specified surgical aftercare Assessments Date Code Description Provider 05/31/2021 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 Porfirio Gonzalez , DO 05/27/2021 T81.40xD Infection following a procedure, unspecified, subsequent encounter Anival Woo, DO 05/27/2021 S82.042D Displaced comminuted fracture of left patella, subsequent encounter for closed fracture with routine healing Anival Woo, DO 05/13/2021 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 Porfirio Gonzalez , DO 05/05/2021 Z48.89 Encounter for other specified valenzuela rgical aftercare Melchor Schmidt MD 04/29/2021 S82.042D Displaced comminuted fracture of left patella, subsequent encounter for closed fracture with routine healing Olu Anival Yoder, DO 04/29/2021 T81.40xD Infection following a procedure, unspecified, subsequent encounter Anival Woo, 04/26/2021 S82.042D Displaced comminuted fracture of left patella, subsequent encounter for closed fracture with routine healing Olu Anival Yoder, DO 04/14/2021 Z48.89 Encounter for other specified valenzuela rgical aftercare Melchor Schmidt MD 04/05/2021 S82.002A Unspecified fracture of left patella, initial encounter for closed fracture El Mazariegos MD 04/05/2021 Z48.89 Encounter for other specified valenzuela rgical aftercare El Mazariegos MD Plan of Treatment Future Appointment(s):* 07/14/2021 8:30 am - Porfirio Gonzalez DO at [facility] * 07/01/2021 7:30 am - Porifrio Gonzalez DO at [facility] * 07/08/2021 2:00 pm - Anival Woo DO at [facility] 05/31/2021 - Porfirio Gonzalez DO* K60.3 Anal [...]
--- OUTSIDE RECORDS SUMMARY | 2021-07-01 06:05 | CCD | Continuity of Care Document ---
Author Author Margarita WOO DO Organization Unknown Address [address] [facility], [facility] [place] [address] Phone [phone] Care Team Providers Care Retail Reset Merchandiser Name Role Phone Isma Bergman M.D. AUTM [phone] AUTM Unavailable Problems Description No Information Available [...] stated BMI (Body Mass Index) 20.9 kg/m2 [place] Body Weight 172 lb Weight 68.040 kg BSA (Body Surface Area) 1.87 m2 Results Test Acquired Date Facility Test Result H/L Range Note Complete Blood Count 04/15/2021 [facility] enter Main Lab [address] [place] [address] [phone] White Blood Count 7.7 10 Normal 4.0-10.0 [...] % Normal 0-0 Basic Metabolic Profile 04/15/2021 [facility] Main Lab [address] [place] [address] [phone] Glucose, Fasting 140 mg/dL High 70-100 Blood [...] mg/dL Normal 8.5-10.1 Complete Blood Count 04/14/2021 [facility] Main Lab [address] [place], [place] 3061242 [phone] White Blood Count 5.8 10 Normal 4.0-10.0 [...] 0.0 % Normal 0-0 Prothrombin Time/Inr 04/14/2021 [facility] enter Main Lab [address] [place] [address] [phone] Prothrombin Time 13.6 seconds Normal 12.7-14.5 Inr 1.00 Normal 2 Basic Metabolic Profile 04/14/2021 [facility] Main Lab [address] [place] [address] [phone] Glucose, Fasting 109 mg/dL High 70-100 Blood [...] 8.5-10.1 Culture Wound And Gram Stain 04/14/2021 [facility] Main Lab [address] [place] [address] [phone] Gram Stain (SEE NOTE) Normal 4 Laboratory test finding 04/14/2021 [facility] Main Lab [address] [place] [address] [phone] Anaerobic Culture (SEE NOTE) 5 Laboratory test finding 04/14/2021 [facility] Main Lab [address] [place] [address] [phone] Coronavirus 2019 Nasopharygeal <pending> 6 Sars Covid-19 Amplification NEGATIVE Normal Negative 7 1 Units are mL/min/1.73 m2 Chronic Kidney Disease Staging per NKF: Stage I & II GFR >=60 Normal to Mildly Decreased Stage III GFR 30-59 Moderately Decreased Stage IV GFR 15-29 Severely Decreased Stage V GFR <15 Very Little GFR Left ESRD GFR <15 on CAMERA SUPERVISOR 2 THERAPUTIC HUMAN INR VALUES INDICATIONS NORMAL [...] Little GFR Left ESRD GFR <15 on CAMERA SUPERVISOR 4 MODERATE WBCS NO ORGANISMS SEEN 5 [...] pathogens. DISCLAIMER: Testing was performed using the [employer] SARS-CoV-2 test. This test was developed and its performance characteristics determined by [employer]. This test has not been FDA cleared [...] sooner. 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 Office Visit 05/05/2021 9:30a [facility] Melchor Schmidt MD Z48.89 Encounter for other specified surgical aftercare Office Visit 04/29/2021 11:20a [facility] Olu Pack, Maur ice, DO S82.042D Displ commnt fx left patella, subs for c los fx w routn heal T81.40xD Infection following a proced ure, unspecified, subs Office Visit 04/26/2021 9:40a [facility] Natasha Woo DO S82.042D Displ commnt fx left patella, subs for c los fx w routn heal Office Visit 04/14/2021 10:30a [facility] Melchor Schmidt MD Z48.89 Encounter [...] pm - Anival Woo DO at [facility] * 05/31/2021 11:00 am - Porfirio Gonzalez DO at [facility] 05/27/2021 - Anival Woo DO* Z47.89 Encounter for other orthopedic aftercare* New Xrays:* XR Knee 1 Or 2 Views Left, Ordered: 05/27/21 * Comments:* Follow-up 6 weeks for reexamination repeat x-rays Functional Status Description No Information Available Mental Status Description No Information Available Referrals Description No Information Available
--- OUTSIDE RECORDS SUMMARY | 2021-07-01 06:05 | CCD | Continuity of Care Document ---
Author Author Margarita GONZALEZ DO Organization Unknown Address [address] [facility], [address] [place] [address] Phone [phone] Care Team Providers Care Business Services Director Name Role Phone Isma Bergman M.D. AUTM [phone] AUTM Unavailable Problems Description No Information Available [...] stated BMI (Body Mass Index) 20.9 kg/m2 [place] Body Weight 172 lb Weight 68.040 kg BSA (Body Surface Area) 1.87 m2 05/05/2021 9:33am Body Temperature 97.6 F Results Test Acquired Date Facility Test Result H/L Range Note Complete Blood Count 04/15/2021 [facility] enter Main Lab [address] [place], [place] 1744529 [phone] White Blood Count 7.7 10 Normal 4.0-10.0 [...] % Normal 0-0 Basic Metabolic Profile 04/15/2021 [facility] Main Lab [address] [place] [address] [phone] Glucose, Fasting 140 mg/dL High 70-100 Blood [...] Normal 8.5-10.1 Complete Blood Count 04/14/2021 [facility] Main Lab [address] [place] [address] [phone] White Blood Count 5.8 10 Normal 4.0-10.0 [...] 0.0 % Normal 0-0 Prothrombin Time/Inr 04/14/2021 [facility] enter Main Lab [address] [place] [address] [phone] Prothrombin Time 13.6 seconds Normal 12.7-14.5 Inr 1.00 Normal 2 Basic Metabolic Profile 04/14/2021 [facility] Main Lab [address] [place] [address] [phone] Glucose, Fasting 109 mg/dL High 70-100 Blood [...] 8.5-10.1 Culture Wound And Gram Stain 04/14/2021 [facility] Main Lab [address] [place] [address] [phone] Gram Stain (SEE NOTE) Normal 4 Laboratory test finding 04/14/2021 [facility] Main Lab [address] [place] [address] [phone] Anaerobic Culture (SEE NOTE) 5 Laboratory test finding 04/14/2021 [facility] Main Lab [address] [place] [address] [phone] Coronavirus 2019 Nasopharygeal <pending> 6 Sars Covid-19 Amplification NEGATIVE Normal Negative 7 1 Units are mL/min/1.73 m2 Chronic Kidney Disease Staging per NKF: Stage I & II GFR >=60 Normal to Mildly Decreased Stage III GFR 30-59 Moderately Decreased Stage IV GFR 15-29 Severely Decreased Stage V GFR <15 Very Little GFR Left ESRD GFR <15 on CHINA PAINTER 2 THERAPUTIC HUMAN INR VALUES INDICATIONS NORMAL [...] Little GFR Left ESRD GFR <15 on CHINA PAINTER 4 MODERATE WBCS NO ORGANISMS SEEN 5 [...] pathogens. DISCLAIMER: Testing was performed using the [employer] SARS-CoV-2 test. This test was developed and its performance characteristics determined by [employer]. This test has not been FDA cleared [...] Provider Dx Diagnosis Office Visit 05/05/2021 9:30a [facility] Melchor Schmidt MD Z48.89 Encounter for other specified surgical aftercare Office Visit 04/29/2021 11:20a [facility] Natasha Rojo, S82.042D Displ commnt fx left patella, subs for c los fx w routn heal T81.40xD Infection following a proced ure, unspecified, subs Office Visit 04/26/2021 9:40a [facility] Natasha Rojo, DO S82.042D Displ commnt fx left patella, subs for c los fx w routn heal Office Visit 04/14/2021 10:30a [facility] Melchor Schmidt MD Z48.89 Encounter for other specified surgical aftercare Assessments Date Code Description Provider 05/13/2021 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
--- OUTSIDE RECORDS SUMMARY | 2021-07-01 06:06 | CCD ---
Continuity of Care Document (CCD) Created on: 05/05/2021 Margarita Steve External Reference #: [id number] : 1990 Sex: Male Author Author Margarita SCHMIDT MD Organization Unknown Address [address] , [facility] [address] Phone [phone] Care Team Providers Care Outside Contractor Sales Name Role Phone Isma Bergman M.D. AUTM [phone] AUTM Unavailable Problems Description No Information Available [...] H/L Range Note Complete Blood Count 04/15/2021 [facility] enter Main Lab [address] [place] [address] [phone] White Blood Count 7.7 10 Normal 4.0-10.0 [...] % Normal 0-0 Basic Metabolic Profile 04/15/2021 [facility] Main Lab [address] [place] [address] [phone] Glucose, Fasting 140 mg/dL High 70-100 Blood [...] 8.5-10.1 Complete Blood Count 04/14/2021 [facility] Main Lab [address] [place] [address] [phone] White Blood Count 5.8 10 Normal 4.0-10.0 [...] 0.0 % Normal 0-0 Prothrombin Time/Inr 04/14/2021 [facility] Lab [address] [place] [address] [phone] Prothrombin Time 13.6 seconds Normal 12.7-14.5 Inr 1.00 Normal 2 Basic Metabolic Profile 04/14/2021 [facility] Main Lab [address] [place] [address] [phone] Glucose, Fasting 109 mg/dL High 70-100 Blood [...] Stain 04/14/2021 [facility] Main Lab [address] [place] [address] [phone] Gram Stain (SEE NOTE) Normal 4 Laboratory test finding 04/14/2021 [facility] Main Lab [address] [place] [address] [phone] Anaerobic Culture (SEE NOTE) 5 Laboratory test finding 04/14/2021 [facility] Main Lab [address] [place] [address] [phone] Coronavirus 2019 Nasopharygeal <pending> 6 Sars Covid-19 Amplification NEGATIVE Normal Negative 7 1 Units are mL/min/1.73 m2 Chronic Kidney Disease Staging per NKF: Stage I & II GFR >=60 Normal to Mildly Decreased Stage III GFR 30-59 Moderately Decreased Stage IV GFR 15-29 Severely Decreased Stage V GFR <15 Very Little GFR Left ESRD GFR <15 on LABEL CUTTER 2 THERAPUTIC HUMAN INR VALUES INDICATIONS NORMAL [...] Little GFR Left ESRD GFR <15 on LABEL CUTTER 4 MODERATE WBCS NO ORGANISMS SEEN 5 [...] pathogens. DISCLAIMER: Testing was performed using the [employer] SARS-CoV-2 test. This test was developed and its performance characteristics determined by [employer]. This test has not been FDA cleared [...] Date Location Provider Dx Diagnosis Office Visit 04/26/2021 9:40a [facility] Natasha Rojo, DO S82.042D Displ commnt fx left patella, subs for c los fx w routn heal Office Visit 04/14/2021 10:30a [facility] Melchor Schmidt MD Z48.89 Encounter for [...] 10:00 am - Melchor Schmidt MD at [facility] 05/05/2021 - Melchor Schmidt MD* Z48.89 Encounter for other specified surgical aftercare Functional Status Description No Information Available Mental Status Description No Information Available Referrals Description No Information Available
--- OUTSIDE RECORDS SUMMARY | 2021-07-01 06:06 | CCD | Continuity of Care Document ---
Author Author Margarita SCHMIDT MD Organization Unknown Address [address] , [facility] [place] [place] [address] Phone [phone] Care Team Providers Care Lead Bi Developer Name Role Phone Isma Bergman M.D. AUTM [phone] AUTM Unavailable Problems Description No Information Available [...] H/L Range Note Complete Blood Count 04/15/2021 [facility] enter Main Lab [address] [place] [address] [phone] White Blood Count 7.7 10 Normal 4.0-10.0 [...] % Normal 0-0 Basic Metabolic Profile 04/15/2021 [facility] Main Lab [address] [place] [address] [phone] Glucose, Fasting 140 mg/dL High 70-100 Blood [...] Blood Count 04/14/2021 [facility] Main Lab [address] [place] [address] [phone] White Blood Count 5.8 10 Normal 4.0-10.0 [...] 0.0 % Normal 0-0 Prothrombin Time/Inr 04/14/2021 [facility] Lab [address] [place] [address] [phone] Prothrombin Time 13.6 seconds Normal 12.7-14.5 Inr 1.00 Normal 2 Basic Metabolic Profile 04/14/2021 [facility] Main Lab [address] [place] [address] [phone] Glucose, Fasting 109 mg/dL High 70-100 Blood [...] 8.5-10.1 Culture Wound And Gram Stain 04/14/2021 [facility] Main Lab [address] [place] [address] [phone] Gram Stain (SEE NOTE) Normal 4 Laboratory test finding 04/14/2021 [facility] Main Lab [address] [place] [address] [phone] Anaerobic Culture (SEE NOTE) 5 Laboratory test finding 04/14/2021 [facility] Main Lab [address] [place] [address]61 [phone] Coronavirus 2019 Nasopharygeal <pending> 6 Sars Covid-19 Amplification NEGATIVE Normal Negative 7 1 Units are mL/min/1.73 m2 Chronic Kidney Disease Staging per NKF: Stage I & II GFR >=60 Normal to Mildly Decreased Stage III GFR 30-59 Moderately Decreased Stage IV GFR 15-29 Severely Decreased Stage V GFR <15 Very Little GFR Left ESRD GFR <15 on OIL FIELD LABORER 2 THERAPUTIC HUMAN INR VALUES INDICATIONS NORMAL [...] Little GFR Left ESRD GFR <15 on OIL FIELD LABORER 4 MODERATE WBCS NO ORGANISMS SEEN 5 [...] pathogens. DISCLAIMER: Testing was performed using the [employer] SARS-CoV-2 test. This test was developed and its performance characteristics determined by [employer]. This test has not been FDA cleared [...] Provider Dx Diagnosis Office Visit 04/26/2021 9:40a [facility] Natasha Rojo, DO S82.042D Displ commnt fx left patella, subs for c los fx w routn heal Office Visit 04/14/2021 10:30a [facility] Melchor Schmidt MD Z48.89 Encounter [...] 10:00 am - Melchor Schmidt MD at [facility] 05/05/2021 - Melchor Schmidt MD* Z48.89 Encounter for other specified surgical aftercare Functional Status Description No Information Available Mental Status Description No Information Available Referrals Description No Information Available
--- OUTSIDE RECORDS SUMMARY | 2021-07-01 06:06 | CCD | Continuity of Care Document ---
Author Author Margarita WOO DO Organization Unknown Address [address] [place] [address], [facility] [place] [address] Phone [phone] Care Team Providers Care Decommissioning Well Site Manager Name Role Phone Isma Bergman M.D. AUTM [phone] AUTM Unavailable Problems Description No Information Available Social History Type Date Description Comments Sex Unknown ETOH Use Occasionally consumes alcohol Recreational Drug Use Current Marijuana Tobacco Use Start: Unknown 1/2 PPD Allergies, Adverse Reactions, Alerts Description No Known Drug Allergies Medications Active [...] Available Vital Signs Date Vital Result Comment 04/29/2021 10:55am Body Temperature 97.1 F 04/14/2021 10:33am Body Temperature 97.6 F Results Test Acquired Date Facility Test Result H/L Range Note Complete Blood Count 04/15/2021 [facility] enter Main Lab [address] [place] [address] [phone] White Blood Count 7.7 10 Normal 4.0-10.0 [...] % Normal 0-0 Basic Metabolic Profile 04/15/2021 [facility] Main Lab [address], [place] [phone] Glucose, Fasting 140 mg/dL High 70-100 Blood [...] Count 04/14/2021 [facility] Main Lab [address] [place] [address] [phone] White Blood Count 5.8 10 Normal 4.0-10.0 [...] 0.0 % Normal 0-0 Prothrombin Time/Inr 04/14/2021 [facility] Lab [address] [place] [address] [phone] Prothrombin Time 13.6 seconds Normal 12.7-14.5 Inr 1.00 Normal 2 Basic Metabolic Profile 04/14/2021 [facility] Main Lab [address] [place] [address] [phone] Glucose, Fasting 109 mg/dL High 70-100 Blood [...] 8.5-10.1 Culture Wound And Gram Stain 04/14/2021 [facility] Main Lab [address] [place] [address] [phone] Gram Stain (SEE NOTE) Normal 4 Laboratory test finding 04/14/2021 [facility] Main Lab [address] [place] [address] [phone] Anaerobic Culture (SEE NOTE) 5 Laboratory test finding 04/14/2021 [facility] Main Lab [address] [place] [address] [phone] Coronavirus 2019 Nasopharygeal <pending> 6 Sars Covid-19 Amplification NEGATIVE Normal Negative 7 1 Units are mL/min/1.73 m2 Chronic Kidney Disease Staging per NKF: Stage I & II GFR >=60 Normal to Mildly Decreased Stage III GFR 30-59 Moderately Decreased Stage IV GFR 15-29 Severely Decreased Stage V GFR <15 Very Little GFR Left ESRD GFR <15 on SCIENTIFIC PHOTOGRAPHER 2 THERAPUTIC HUMAN INR VALUES INDICATIONS NORMAL [...] Little GFR Left ESRD GFR <15 on SCIENTIFIC PHOTOGRAPHER 4 MODERATE WBCS NO ORGANISMS SEEN 5 [...] pathogens. DISCLAIMER: Testing was performed using the [employer] SARS-CoV-2 test. This test was developed and its performance characteristics determined by [employer]. This test has not been FDA cleared [...] Provider Dx Diagnosis Office Visit 04/26/2021 9:40a [facility] Natasha Woo, S82.042D Displ commnt fx left patella, subs for c los fx w routn heal Office Visit 04/14/2021 10:30a [facility] Melchor Schmidt MD Z48.89 Encounter for other specified surgical aftercare Assessments Date Code Description Provider 04/29/2021 S82.042D Displaced comminuted fracture of left patella, subsequent encounter for closed fracture with routine healing Anival Woo DO 04/26/2021 S82.042D Displaced comminuted [...] Mazariegos MD Plan of Treatment Future Appointment(s):* 05/05/2021 9:30 am - Melchor Schmidt MD at [facility] 04/29/2021 - Anival Woo DO* S82.042D Displaced comminuted fracture of left patella, subsequent encounter for closed fracture with routine healing* Comments:* 1. Sutures in situ. Cleaned with chlorhexidine and sterile eyelid dressing daily2. Follow-up with surgeon in 1 week3 any issues earlier follow-up appointment.4. Maintain knee immobilization 1 more week Functional Status Description No Information Available Mental Status Description No Information Available Referrals Description No Information Available
--- OUTSIDE RECORDS SUMMARY | 2021-07-01 06:06 | CCD | Continuity of Care Document ---
Author Author Margarita SCHMIDT MD Organization Unknown Address [address] , [facility] [place] [address] Phone [phone] Care Team Providers Care Family Services Coordinator Name Role Phone Isma Bergman M.D. AUTM [phone] AUTM Unavailable Problems Description No Information Available [...] H/L Range Note Complete Blood Count 04/15/2021 [facility] enter Main Lab [address] [place] [address] [phone] White Blood Count 7.7 10 Normal 4.0-10.0 [...] 0-0 Basic Metabolic Profile 04/15/2021 [facility] Main Lab [address] [place] [address] [phone] Glucose, Fasting 140 mg/dL High 70-100 Blood [...] Normal 8.5-10.1 Complete Blood Count 04/14/2021 [facility] Main Lab [address] [place] [address] [phone] White Blood Count 5.8 10 Normal 4.0-10.0 [...] 0.0 % Normal 0-0 Prothrombin Time/Inr 04/14/2021 [facility] Lab [address] [place] [address] [phone] Prothrombin Time 13.6 seconds Normal 12.7-14.5 Inr 1.00 Normal 2 Basic Metabolic Profile 04/14/2021 [facility] Main Lab [address] [place] [address] [phone] Glucose, Fasting 109 mg/dL High 70-100 Blood [...] 8.5-10.1 Culture Wound And Gram Stain 04/14/2021 [facility] Main Lab [address] [place] [address] [phone] Gram Stain (SEE NOTE) Normal 4 Laboratory test finding 04/14/2021 [facility] Main Lab [address] [place] [address] [phone] Anaerobic Culture (SEE NOTE) 5 Laboratory test finding 04/14/2021 [facility] Main Lab [address] [place] [address] [phone] Coronavirus 2019 Nasopharygeal <pending> 6 Sars Covid-19 Amplification NEGATIVE Normal Negative 7 1 Units are mL/min/1.73 m2 Chronic Kidney Disease Staging per NKF: Stage I & II GFR >=60 Normal to Mildly Decreased Stage III GFR 30-59 Moderately Decreased Stage IV GFR 15-29 Severely Decreased Stage V GFR <15 Very Little GFR Left ESRD GFR <15 on NEUROLOGY NURSE 2 THERAPUTIC HUMAN INR VALUES INDICATIONS NORMAL [...] Little GFR Left ESRD GFR <15 on NEUROLOGY NURSE 4 MODERATE WBCS NO ORGANISMS SEEN 5 [...] pathogens. DISCLAIMER: Testing was performed using the [employer] SARS-CoV-2 test. This test was developed and its performance characteristics determined by [employer]. This test has not been FDA cleared [...] Provider Dx Diagnosis Office Visit 04/26/2021 9:40a [facility] Natasha Rojo, DO S82.042D Displ commnt fx left patella, subs for c los fx w routn heal Office Visit 04/14/2021 10:30a [facility] Melchor Schmidt MD Z48.89 [...] 10:00 am - Melchor Schmidt MD at [facility] 05/05/2021 - Melchor Schmidt MD* Z48.89 Encounter for other specified surgical aftercare Functional Status Description No Information Available Mental Status Description No Information Available Referrals Description No Information Available
--- OUTSIDE RECORDS SUMMARY | 2021-07-01 06:06 | CCD ---
Continuity of Care Document (CCD) Created on: 05/05/2021 Margarita Steve External Reference #: [id number] : 1990 Sex: Male Author Author Margarita SCHMIDT MD Organization Unknown Address [address] , [facility] [place] [address] Phone [phone] Care Team Providers Care Driving School Instructor Name Role Phone Isma Bergman M.D. AUTM [phone] AUTM Unavailable Problems Description No Information Available [...] H/L Range Note Complete Blood Count 04/15/2021 [facility] enter Main Lab [address] [place] [address] [phone] White Blood Count 7.7 10 Normal 4.0-10.0 [...] % Normal 0-0 Basic Metabolic Profile 04/15/2021 [facility] Main Lab [address] [place] [address] [phone] Glucose, Fasting 140 mg/dL High 70-100 Blood [...] mg/dL Normal 8.5-10.1 Complete Blood Count 04/14/2021 [facility] Main Lab [address] [place] [address] [phone] White Blood Count 5.8 10 Normal 4.0-10.0 [...] 0.0 % Normal 0-0 Prothrombin Time/Inr 04/14/2021 [facility] Lab [address] [place] [address] [phone] Prothrombin Time 13.6 seconds Normal 12.7-14.5 Inr 1.00 Normal 2 Basic Metabolic Profile 04/14/2021 [facility] Main Lab [address] [place] [address] [phone] Glucose, Fasting 109 mg/dL High 70-100 Blood [...] 8.5-10.1 Culture Wound And Gram Stain 04/14/2021 [facility] Main Lab [address] [place] [address] [phone] Gram Stain (SEE NOTE) Normal 4 Laboratory test finding 04/14/2021 [facility] Main Lab [address] [place] [address] [phone] Anaerobic Culture (SEE NOTE) 5 Laboratory test finding 04/14/2021 [facility] Main Lab [address] [place] [address] [phone] Coronavirus 2019 Nasopharygeal <pending> 6 Sars Covid-19 Amplification NEGATIVE Normal Negative 7 1 Units are mL/min/1.73 m2 Chronic Kidney Disease Staging per NKF: Stage I & II GFR >=60 Normal to Mildly Decreased Stage III GFR 30-59 Moderately Decreased Stage IV GFR 15-29 Severely Decreased Stage V GFR <15 Very Little GFR Left ESRD GFR <15 on MATERIAL STRESS TESTER 2 THERAPUTIC HUMAN INR VALUES INDICATIONS NORMAL [...] Little GFR Left ESRD GFR <15 on MATERIAL STRESS TESTER 4 MODERATE WBCS NO ORGANISMS SEEN 5 [...] pathogens. DISCLAIMER: Testing was performed using the [employer] SARS-CoV-2 test. This test was developed and its performance characteristics determined by [employer]. This test has not been FDA cleared [...] Provider Dx Diagnosis Office Visit 04/26/2021 9:40a [facility] Orth[facility] Natasha Rojo, DO S82.042D Displ commnt fx left patella, subs for c los fx w routn heal Office Visit 04/14/2021 10:30a [facility] Orth[facility] Melchor Schmidt MD Z48.89 Encounter [...] 10:00 am - Melchor Schmidt MD at [facility] 05/05/2021 - Melchor Schmidt MD* Z48.89 Encounter for other specified surgical aftercare Functional Status Description No Information Available Mental Status Description No Information Available Referrals Description No Information Available
--- OUTSIDE RECORDS SUMMARY | 2021-07-01 06:06 | CCD | Continuity of Care Document ---
Author Author Margarita WOO DO Organization Unknown Address [address] [place] [address], [facility] [place] [address] Phone [phone] Care Team Providers Care Substation Operator Conversion Name Role Phone Isma Bergman M.D. AUTM [phone] AUTM Unavailable Problems Description No Information Available [...] H/L Range Note Complete Blood Count 04/15/2021 [facility] enter Main Lab [address] [place] [address] [phone] White Blood Count 7.7 10 Normal 4.0-10.0 [...] % Normal 0-0 Basic Metabolic Profile 04/15/2021 [facility] Main Lab [address] [place], [place] [address] [phone] Glucose, Fasting 140 mg/dL High 70-100 Blood [...] [facility] Main Lab [address] [place] [address] [phone] White Blood Count 5.8 10 Normal 4.0-10.0 [...] 0.0 % Normal 0-0 Prothrombin Time/Inr 04/14/2021 [facility] Lab [address] [place] [address] [phone] Prothrombin Time 13.6 seconds Normal 12.7-14.5 Inr 1.00 Normal 2 Basic Metabolic Profile 04/14/2021 [facility] Main Lab [address] [place] [address] [phone] Glucose, Fasting 109 mg/dL High 70-100 Blood [...] 8.5-10.1 Culture Wound And Gram Stain 04/14/2021 [facility] Main Lab [address] [place] [address] [phone] Gram Stain (SEE NOTE) Normal 4 Laboratory test finding 04/14/2021 [facility] Main Lab [address] [place] [address] [phone] Anaerobic Culture (SEE NOTE) 5 Laboratory test finding 04/14/2021 [facility] Main Lab [address] [place] [address] [phone] Coronavirus 2019 Nasopharygeal <pending> 6 Sars Covid-19 Amplification NEGATIVE Normal Negative 7 1 Units are mL/min/1.73 m2 Chronic Kidney Disease Staging per NKF: Stage I & II GFR >=60 Normal to Mildly Decreased Stage III GFR 30-59 Moderately Decreased Stage IV GFR 15-29 Severely Decreased Stage V GFR <15 Very Little GFR Left ESRD GFR <15 on HERD TESTER 2 THERAPUTIC HUMAN INR VALUES INDICATIONS [...] Little GFR Left ESRD GFR <15 on HERD TESTER 4 MODERATE WBCS NO ORGANISMS SEEN [...] pathogens. DISCLAIMER: Testing was performed using the [employer] SARS-CoV-2 test. This test was developed and its performance characteristics determined by [employer]. This test has not been FDA cleared [...] Provider Dx Diagnosis Office Visit 04/26/2021 9:40a [facility] Orthoped[facility] Natasha Woo, S82.042D Displ commnt fx left patella, subs for c los fx w routn heal Office Visit 04/14/2021 10:30a [facility] Orthoped[facility] Melchor Schmidt MD Z48.89 Encounter [...] 9:30 am - Melchor Schmidt MD at [facility] 04/29/2021 - Anival Woo DO* S82.042D [...]
--- OUTSIDE RECORDS SUMMARY | 2021-07-01 06:06 | CCD ---
Author Author [facility] Organization [facility] Address Unknown Phone Unavailable Care Team Providers Care Parent Aide Name Role Phone BRYDEN, A SCOT DO Unavailable Unavailable BRYDEN, A SCOT DO Unavailable Unavailable BRYDEN, A SCOT DO Unavailable Unavailable BRYDEN, A SCOT DO Unavailable Unavailable BRYDEN, A SCOT DO Unavailable Unavailable BRYDEN, A SCOT DO Unavailable Unavailable BRYDEN, A SCOT DO Unavailable Unavailable BRYDEN, A SCOT DO Unavailable Unavailable BRYDEN, A SCOT DO Unavailable Unavailable BRYDEN, A SCOT DO Unavailable Unavailable BRYDEN, A SCOT DO Unavailable Unavailable BRYDEN, A SCOT DO Unavailable Unavailable BRYDEN, A SCOT DO Unavailable Unavailable BRYDEN, A SCOT DO Unavailable Unavailable BRYDEN, A SCOT DO Unavailable Unavailable BRYDEN, A SCOT DO Unavailable Unavailable BRYDEN, A SCOT DO Unavailable Unavailable BRYDEN, A SCOT DO Unavailable Unavailable BRYDEN, A SCOT DO Unavailable Unavailable BRYDEN, A SCOT DO Unavailable Unavailable BRYDEN, A SCOT DO Unavailable Unavailable BRYDEN, A SCOT DO Unavailable Unavailable BRYDEN, A SCOT DO Unavailable Unavailable BRYDEN, A SCOT DO Unavailable Unavailable BRYDEN, A SCOT DO Unavailable Unavailable BRYDEN, A SCOT DO Unavailable Unavailable BRYDEN, A SCOT DO Unavailable Unavailable BRYDEN, A SCOT DO Unavailable Unavailable BRYDEN, A SCOT DO Unavailable Unavailable JUAN ANTONIO QURESHI MD Unavailable Unavailable JUAN ANTONIO QURESHI MD Unavailable Unavailable PACKJUAN ANTONIO MD Unavailable Unavailable Biedron, Alanna Roche MD Unavailable Unavailable Biedron, Alanna Roche MD Unavailable Unavailable Biedron, M Melchor JACINTO Unavailable Unavailable Biedron, M Melchor JACINTO Unavailable Unavailable Biedron, M Melchor JACINTO Unavailable Unavailable Biedron, M Melchor JACINTO Unavailable Unavailable Biedron, M Melchor JACINTO Unavailable Unavailable Biedron, M Melchor JACINTO Unavailable Unavailable Biedron, M Melchor JACINTO Unavailable Unavailable Re-disclosure Warning The records that you are about to access may contain information from federally-assisted alcohol or drug abuse programs. If such information is present, then the following federally mandated warning applies: This information has been disclosed to you from records protected by federal confidentiality rules (42 CFR part 2). The federal rules prohibit you from making any further disclosure of this information unless further disclosure is expressly permitted by the written consent of the person to whom it pertains or as otherwise permitted by 42 CFR part 2. A general authorization for the release of medical or other information is NOT sufficient for this purpose. The Federal rules restrict any use of the information to criminally investigate or prosecute any alcohol or drug abuse patient.The records that you are about to access may contain highly sensitive health information, the redisclosure of which is protected by Article 27-F of the [facility] Public Health law. If you continue you may have access to information: Regarding HIV / AIDS; Provided by facilities licensed or operated by the [facility] Office of Mental Health; or Provided by the [facility] Office for People With Developmental Disabilities. If such information is present, then the following [facility] mandated warning applies: This information has been disclosed to you from confidential records which are protected by state law. State law prohibits you from making any further disclosure of this information without the specific written consent of the person to whom it pertains, or as otherwise permitted by law. Any unauthorized further disclosure in violation of state law may result in a fine or penitentiary sentence or both. A general authorization for the release of medical or other information is NOT sufficient authorization for further disc losure. Allergies and Adverse Reactions Type Description Substance Reaction Status Data Source(s ) Drug Allergy Drug Allergy NKDA [facility] ([facility], ) Encounters Encounter Providers Location Date Indications Data Source(s ) Outpatient Attender: SCOT Marcelo/[place]/Marcial/Drew ndl 05/31/2021 11:00:00 AM EDT [facility] ([facility]) Office Visit Attender: JUAN ANTONIO [place]/Marcial/ Reindl 05/27/2021 01:00:00 PM EDT [facility] ([facility]) Outpatient Attender: SCOT Marcelo/[place]/Marcial/Drew ndl 05/13/2021 11:00:00 AM EDT [facility] ([facility]) [place] [address] [facility] [facility] [address] 05/12/2021 12:00:00 AM EDT eCW1 ([facility]) [place] [address] [facility] [address] 05/10/2021 12:00:00 AM EDT eCW1 ([facility] Office Visit Attender: Melchor Mayfield/[place] Miguel/Marcial/R eindl 05/05/2021 09:30:00 AM EDT [facility] ([facility]) Office Visit Attender: JUAN ANTONIO [place] Miguel/Marcial/ Reindl 04/29/2021 11:20:00 AM EDT [facility] ([facility]) Office Visit Attender: JUAN ANTONIO [place]/Marcial/ Reindl 04/26/2021 09:40:00 AM EDT [facility] ([facility]) Office Visit Attender: Melchor [place]/Jos[place] Miguel/Marcial/R eindl 04/14/2021 10:30:00 AM EDT [facility] ([facility]) [place] [address] [facility] [address] 04/13/2021 12:00:00 AM EDT eCW1 ([facility]) [place] [address] [facility] [address] 12/21/2020 12:00:00 AM EDT eCW1 ([facility]) [place] [address] [facility] [address] 12/20/2020 12:00:00 AM EDT eCW1 ([facility]) [place] [address] [facility] [address] 12/20/2020 12:00:00 AM EDT eCW1 ([facility]) [place]patient [address] [facility] [address] 11/05/2020 12:00:00 AM EDT eCW1 ([facility]) [place] [address] [facility] [address] 11/02/2020 12:00:00 AM EDT eCW1 ([facility]) [place] [address] [facility] [address] 11/02/2020 12:00:00 AM EDT eCW1 ([facility]) [place] [address] [facility] [address] 10/19/2020 12:00:00 AM EDT eCW1 ([facility]) [place] [address] [facility] [address] 10/18/2020 12:00:00 AM EDT eCW1 ([facility]) Outpatient [address] [facility] [address] 10/15/2020 12:00:00 AM EDT eCW1 ([facility]) [place] [address] [facility] [address] 10/14/2020 12:00:00 AM EDT eCW1 ([facility]) Outpatient [address] [facility] [address] 10/07/2020 12:00:00 AM EST eCW1 ([facility]) [place] [address] [facility] [address] 10/07/2020 12:00:00 AM EST eCW1 ([facility]) [place] [address] [facility] [address] 09/02/2020 12:00:00 AM EST eCW1 ([facility]) [place] [address] [facility] [address] 08/17/2020 12:00:00 AM EST eCW1 ([facility]) Outpatient [address] [facility] [address] 07/02/2020 12:00:00 AM EST eCW1 ([facility]) Immunizations Vaccine Date Status Description Data Source(s) COVID-19 VACCINE Pfizer 01/16/2021 12:00:00 AM EDT completed [facility] Vaccine Series Complete: YESThis Data wa s Submitted to [facility] Via [facility]. COVID-19 VACC, MRNA(PFIZER)/PF 12/26/2020 12:00:00 AM EDT completed [facility] COVID-19 VACCINE Pfizer 12/26/2020 12:00:00 AM EDT completed [facility] Vaccine Series Complete: NOThis Data was Submitted to [facility] [employer]. influenza, recombinant, quadrIvalent,injectable, prese rvative free 07/02/2020 01:23:00 PM EST completed eCW1 ([facility]) influenza, recombinant, quadrIvalent,injectable, prese rvative free 07/02/2020 01:23:00 PM EST completed eCW1 ([facility]) influenza, recombinant, quadrIvalent,injectable, prese rvative free 07/02/2020 01:23:00 PM EST completed eCW1 ([facility]) influenza, recombinant, quadrIvalent,injectable, prese rvative free 07/02/2020 01:23:00 PM EST completed eCW1 ([facility]) influenza, recombinant, quadrIvalent,injectable, prese rvative free 07/02/2020 01:23:00 PM EST completed eCW1 ([facility]) influenza, recombinant, quadrIvalent,injectable, prese rvative free 07/02/2020 01:23:00 PM EST completed eCW1 ([facility]) influenza, recombinant, quadrIvalent,injectable, prese rvative free 07/02/2020 01:23:00 PM EST completed eCW1 ([facility]) influenza, recombinant, quadrIvalent,injectable, prese rvative free 07/02/2020 01:23:00 PM EST completed eCW1 ([facility]) influenza, recombinant, quadrIvalent,injectable, prese rvative free 07/02/2020 01:23:00 PM EST completed eCW1 ([facility]) influenza, recombinant, quadrIvalent,injectable, prese rvative free 07/02/2020 01:23:00 PM EST completed eCW1 ([facility]) influenza, recombinant, quadrIvalent,injectable, prese rvative free 07/02/2020 01:23:00 PM EST completed eCW1 ([facility]) influenza, recombinant, quadrIvalent,injectable, prese rvative free 07/02/2020 01:23:00 PM EST completed eCW1 ([facility]) influenza, recombinant, quadrIvalent,injectable, prese rvative free 07/02/2020 01:23:00 PM EST completed eCW1 ([facility]) influenza, recombinant, quadrIvalent,injectable, prese rvative free 07/02/2020 01:23:00 PM EST completed eCW1 ([facility]) influenza, recombinant, quadrIvalent,injectable, prese rvative free 07/02/2020 01:23:00 PM EST completed eCW1 ([facility]) influenza, recombinant, quadrIvalent,injectable, prese rvative free 07/02/2020 01:23:00 PM EST completed eCW1 ([facility]) influenza, recombinant, quadrIvalent,injectable, prese rvative free 07/02/2020 01:23:00 PM EST completed eCW1 ([facility]) influenza, recombinant, quadrIvalent,injectable, prese rvative free 07/02/2020 01:23:00 PM EST completed eCW1 ([facility]) Medications Medication Brand Name Start Date Product Form Dose Route Admi nistrative Instructions Pharmacy Instructions Status Indications Reaction Description Data Source(s) doxycycline hyclate 100 MG Oral Capsule DOXYCYCLINE HYCLATE 05/12/2021 12:00:00 AM EDT capsule 20 TAKE ONE CAPSULE BY MOUTH TW O TIMES A DAY FOR 10 DAYS TAKE ONE CAPSULE BY MOUTH TWO TIMES A DAY FOR 10 DAYS SOLD: 05/12/2021 [facility] doxycycline hyclate 100 MG Oral Capsule Doxycycline Hy clate 100 MG Doxycycline Hyclate 100 MG 05/12/2021 12:00:00 AM EDT 1.0 {capsule} active Doxycycline Hyclate 100 MG eCW1 ([facility]) 750 mg 04/23/2021 12:00:00 AM EDT tablet 10 TAKE ONE TABLET BY MOUTH DAILY TAKE ONE TABLET BY MOUTH DAILY SOLD: 04/23/2021 [facility] 5-325 mg 04/23/2021 12:00:00 AM EDT tablet 30 TAKE 1-2 TABLETS BY MOUTH THREE TIMES A DAY NEEDED FOR PAIN, MAXIMUM DAILY DOSE = 6 TAKE 1-2 TABLETS BY MOUTH THREE TIMES A DAY NEEDED FOR PAIN, MAXIMUM DAILY DOSE = 6 SOLD: 04/23/2021 [facility] 5-325 mg 03/21/2021 12:00:00 AM EDT tablet 30 TAKE 1 -2 TABLETS BY MOUTH EVERY 8 HOURS NEEDED FOR MODERATE PAIN PAIN SCALE 5-7 MAXIMUM DAILY DOSE = 6 TABLETS TAKE 1 -2 TABLETS BY MOUTH EVERY 8 HOURS NEEDED FOR MODERATE PAIN PAIN SCALE 5-7 MAXIMUM DAILY DOSE = 6 TABLETS SOLD: 03/21/2021 [facility] 81 mg 03/21/2021 12:00:00 AM EDT tablet,delayed release (DR/EC) 30 TAKE ONE TABLET BY MOUTH EVERY DAY TAKE ONE TABLET BY MOUTH EVERY DAY SOLD: 03/21/2021 [facility] Amoxicillin 875 MG / Clavulanate 125 MG Oral Tablet Amoxicillin-Pot Clavulanate 875-125 MG Amoxicillin-Pot Clavulanate 875-125 MG 11/02/2020 12:00:00 AM ED T 1.0 {tablet} active Amoxicillin-Pot Cla vulanate 875-125 MG eCW1 ([facility]) Amoxicillin 875 MG / Clavulanate 125 MG Oral Tablet Amoxicillin-Pot Clavulanate 875-125 MG Amoxicillin-Pot Clavulanate 875-125 MG 11/02/2020 12:00:00 AM ED T 1.0 {tablet} active Amoxicillin-Pot Cla vulanate 875-125 MG eCW1 ([facility]) 875-125 mg 11/02/2020 12:00:00 AM EDT tablet 14 TAKE ONE TABLET BY MOUTH EVERY 12 HOURS FOR 7 DAYS TAKE ONE TABLET BY MOUTH EVERY 12 HOURS FOR 7 DAYS SOLD: 11/03/2020 [facility] Amoxicillin 875 MG / Clavulanate 125 MG Oral Tablet Amoxicillin-Pot Clavulanate 875-125 MG Amoxicillin-Pot Clavulanate 875-125 MG 11/02/2020 12:00:00 AM ED T 1.0 {tablet} active Amoxicillin-Pot Cla vulanate 875-125 MG eCW1 ([facility]) Amoxicillin 875 MG / Clavulanate 125 MG Oral Tablet Amoxicillin-Pot Clavulanate 875-125 MG Amoxicillin-Pot Clavulanate 875-125 MG 11/02/2020 12:00:00 AM ED T 1.0 {tablet} active Amoxicillin-Pot Cla vulanate 875-125 MG eCW1 ([facility]) Amoxicillin 875 MG / Clavulanate 125 MG Oral Tablet Amoxicillin-Pot Clavulanate 875-125 MG Amoxicillin-Pot Clavulanate 875-125 MG 11/02/2020 12:00:00 AM ED T 1.0 {tablet} active Amoxicillin-Pot Cla vulanate 875-125 MG eCW1 ([facility]) Amoxicillin 875 MG / Clavulanate 125 MG Oral Tablet Amoxicillin-Pot Clavulanate 875-125 MG Amoxicillin-Pot Clavulanate 875-125 MG 11/02/2020 12:00:00 AM ED T 1.0 {tablet} active Amoxicillin-Pot Cla vulanate 875-125 MG eCW1 ([facility]) Amoxicillin 875 MG / Clavulanate 125 MG Oral Tablet Amoxicillin-Pot Clavulanate 875-125 MG Amoxicillin-Pot Clavulanate 875-125 MG 11/02/2020 12:00:00 AM ED T 1.0 {tablet} active eCW1 ([facility]) Amoxicillin 875 MG / Clavulanate 125 MG Oral Tablet Amoxicillin-Pot Clavulanate 875-125 MG Amoxicillin-Pot Clavulanate 875-125 MG 11/02/2020 12:00:00 AM ED T 1.0 {tablet} active Amoxicillin-Pot Cla vulanate 875-125 MG eCW1 ([facility]) PredniSONE 10 MG (48) PredniSONE 10 MG (48) 10/15/2020 12:00:00 AM EDT active PredniSONE 10 MG (48) eCW1 ( [facility]) Hydroxyzine Hydrochloride 25 MG Oral Tablet HydrOXYzin e HCl 25 MG HydrOXYzine HCl 25 MG 10/15/2020 12:00:00 AM EDT active HydrOXYzine HCl 25 MG eCW1 ([facility]) PredniSONE 10 MG (48) PredniSONE 10 MG (48) 10/15/2020 12:00:00 AM EDT active PredniSONE 10 MG (48) eCW1 ( [facility]) PredniSONE 10 MG (48) PredniSONE 10 MG (48) 10/15/2020 12:00:00 AM EDT active PredniSONE 10 MG (48) eCW1 ( [facility]) Hydroxyzine Hydrochloride 25 MG Oral Tablet HydrOXYzin e HCl 25 MG HydrOXYzine HCl 25 MG 10/15/2020 12:00:00 AM EDT active HydrOXYzine HCl 25 MG eCW1 ([facility]) PredniSONE 10 MG (48) PredniSONE 10 MG (48) 10/15/2020 12:00:00 AM EDT active PredniSONE 10 MG (48) eCW1 ( [facility]) Hydroxyzine Hydrochloride 25 MG Oral Tablet HydrOXYzin e HCl 25 MG HydrOXYzine HCl 25 MG 10/15/2020 12:00:00 AM EDT active HydrOXYzine HCl 25 MG eCW1 ([facility]) Hydroxyzine Hydrochloride 25 MG Oral Tablet HydrOXYzin e HCl 25 MG HydrOXYzine HCl 25 MG 10/15/2020 12:00:00 AM EDT active HydrOXYzine HCl 25 MG eCW1 ([facility]) Ibuprofen 800 MG Oral Tablet Ibuprofen 800 MG 10/07/2020 12:00:[address] active Ibuprofen 800 MG eCW1 ([facility]) Ibuprofen 800 MG Oral Tablet Ibuprofen 800 MG 10/07/2020 12:00:[address] active Ibuprofen 800 MG eCW1 ([facility]) Insurance Providers Payer name Policy type / Coverage type Policy ID Covered constitution party ID Covered constitution party's relationship to sandoval Policy Sandoval Plan Information [facility] [id number] [address] [facility] [id number] Problems, Conditions, and Diagnoses Code Display Name Description Problem Type Effective Dates Data Source(s) F17.210 [id number] Cigarette nicotine dependence without com plication Problem 07/02/2020 12:00:00 AM EST eCW1 ([facility]) Surgeries/Procedures Procedure Description Date Indications Data Source(s) OFFICE OUTPATIENT VISIT 25 MINUTES 05/31/2021 12:00:00 AM EDT [facility] OFFICE OUTPATIENT NEW 30 MINUTES 05/13/2021 12:00:00 A M ED [facility] Injection: Tuberculin Purified Protein 0.1mL Intradermal (PP D) 07/02/2020 12:00:00 AM EST eCW1 ([facility]) Results ID Date Data Source [id number] 06/27/2021 10:05:00 AM EST [facility] Name Value Range Interpretation Code Description Data Sherry rce(s) Supporting Document(s) SARS-CoV-2 (COVID-19) RNA [Presence] in Respiratory specimen by JUSTIN with probe detection Not Detected [facility] This lab was ordered by [facility] and reported by [employer] ID Date Data Source [id number] 04/21/2021 10:17:00 AM EDT [facility] Name Value Range Interpretation Code Description Data Sherry rce(s) Supporting Document(s) SARS coronavirus 2 RNA [Presence] in Res piratory specimen by JUSTIN with probe detection NEGATIVE [facility] This lab was ordered by [facility] a nd reported by [facility]. ID Date Data Source [id number] 04/15/2021 05:53:00 AM EDT [facility] ([facility], ) Name Value Range Interpretation Code Description Data Sherry rce(s) Supporting Document(s) Glucose, Fasting 140 mg/dL 70-100 Above high normal M [facility]ENT ([facility], ) Blood Urea Nitrogen 7 mg/dL 7-18 Normal (applies to non-nume sowmya results) [facility] ([facility]) Creatinine For GFR 0.75 mg/dL 0.70-1.30 Normal (applies to non -numeric results) [facility] ([facility]) Glomerular Filtration Rate Laboratory test result Normal (applies to non- numeric results) [facility]) <content>Units are mL/min/1.73 m2</content>
<content></content>
<content>Chronic Kidney Disease Staging per NKF:</content>
<content></content>
<content>Stage I & II GFR >=60 Normal to Mildly Decreased</content>
<content>Stage III GFR 30- 59 Moderately Decreased</content>
<content>Stage IV GFR 15-29 Severely Decreased</content>
<content>Stage V GFR <15 Very Little GFR Left</content>
<content>ESRD GFR <15 on EVALUATION ENGINEER</content>
<content></content> Sodium Level 141 meq/L 136-145 Normal (applies to non-numeric res ults) [facility] ([facility]) Potassium Serum 4.2 meq/L 3.5-5.1 Normal (applies to non-numeric results) [facility]) Chloride Level 105 meq/L 98-107 Normal (applies to non-numeric r esults) [facility]) Anion Gap 7 meq/L 8-16 Below low normal [facility] ( [facility]) Carbon Dioxide Level 29 meq/L 21-32 Normal (applies to non-num clarke results) [facility]) Calcium Level 8.6 mg/dL 8.5-10.1 Normal (applies to non-numeric re sults) [facility]) ID Date Data Source [id number] 04/15/2021 05:53:00 AM EDT [facility] ([facility]) Name Value Range Interpretation Code Description Data Sherry rce(s) Supporting Document(s) White Blood Count 7.7 10 4.0-10.0 Normal (applies to non-numeri c results) [facility] ([facility]) Red Blood Count 4.17 10 4.30-6.10 Below low normal [facility] ([facility]) Hemoglobin 11.5 g/dL 13.5-17.5 Below low normal [facility] ( [facility]) Hematocrit 36.0 % 42.0-52.0 Below low normal [facility] ( [facility]) Mean Corpuscular Hemoglobin 27.6 pg 27.0-33.0 Norm al (applies to non-numeric results) [facility] ([facility]) Mean Corpuscular Volume 86.3 fl 80.0-96.0 Normal ( applies to non-numeric results) [facility]) Mean Corpuscular HGB Conc 31.9 g/dL 32.0-36.5 Below low normal [facility] ([facility]) Red Cell Distribution Width 13.8 % 11.5-14.5 Norm al (applies to non-numeric results) [facility] ([facility]) Platelet Count, Automated 248 10 150-450 Normal (applies to non-numeric results) [facility] ([facility]) Nucleated Red Blood Cell % 0.0 % 0-0 Normal (applies to n on-numeric results) [facility]) ID Date Data Source [id number] 04/14/2021 09:08:[address] [facility]) Name Value Range Interpretation Code Description Data Sherry rce(s) Supporting Document(s) Glucose, Fasting 109 mg/dL 70-100 Above high normal M [facility] ([facility]) Blood Urea Nitrogen 8 mg/dL 7-18 Normal (applies to non-nume sowmya results) [facility]) Glomerular Filtration Rate Laboratory test result Normal (applies to non- numeric results) [facility]) <content>Units are mL/min/1.73 m2</content>
<content></content>
<content>Chronic Kidney Disease Staging per NKF:</content>
<content></content>
<content>Stage I & II GFR >=60 Normal to Mildly Decreased</content>
<content>Stage III GFR 30- 59 Moderately Decreased</content>
<content>Stage IV GFR 15-29 Severely Decreased</content>
<content>Stage V GFR <15 Very Little GFR Left</content>
<content>ESRD GFR <15 on EVALUATION ENGINEER</content>
<content></content> Creatinine For GFR 0.85 mg/dL 0.70-1.30 Normal (applies to non -numeric results) [facility] ([facility]) Sodium Level 143 meq/L 136-145 Normal (applies to non-numeric res ults) [facility]) Potassium Serum 3.8 meq/L 3.5-5.1 Normal (applies to non-numeric results) [facility]) Carbon Dioxide Level 30 meq/L 21-32 Normal (applies to non-num clarke results) [facility]) Anion Gap 5 meq/L 8-16 Below low normal [facility] ( [facility]) Chloride Level 108 meq/L 98-107 Above high normal [facility] ([facility]) Calcium Level 8.8 mg/dL 8.5-10.1 Normal (applies to non-numeric re sults) [facility]) ID Date Data Source [id number] 04/14/2021 09:08:[address] [facility]) Name Value Range Interpretation Code Description Data Sherry rce(s) Supporting Document(s) Prothrombin Time 13.6 s 12.7-14.5 Normal (applies to non-numeric results) [facility] ([facility]) Inr 1.00 Normal (applies to non-numeric resul ts) [facility]) THERAPUTIC HUMAN INR VALUES INDICATIONS NORMAL RANGES PROPHYLAXIS/TREATMENT OF: VENOUS THROMBOSIS 2.0-3.0 PULMONARY EMBOLISM 2.0-3.0 PREVENTION OF SYSTEMIC EMBOLISM FROM: TISSUE HEART VALVES 2.0-3.0 ACUTE MYOCARDIAL INFARCTION 2.0-3.0 VALVULAR HEART DISEASE 2.0-3.0 ATRIAL FIBRILLATION 2.0-3.0 MECHANICAL VALVES(HIGH RISK) 2.5-3.5 RECURRENT MYOCARDIAL INFARCTION 2.5-3.5 ID Date Data Source [id number] 04/14/2021 09:08:00 PM EDT [facility] ([facility]) Name Value Range Interpretation Code Description Data Sherry rce(s) Supporting Document(s) Red Blood Count 4.33 10 4.30-6.10 Normal (applies to non-numeric results) [facility] ([facility]) White Blood Count 5.8 10 4.0-10.0 Normal (applies to non-numeri c results) [facility] ([facility]) Hemoglobin 12.2 g/dL 13.5-17.5 Below low normal [facility] ( [facility]) Mean Corpuscular Volume 88.2 fl 80.0-96.0 Normal ( applies to non-numeric results) [facility] ([facility]) Hematocrit 38.2 % 42.0-52.0 Below low normal [facility] ( [facility]) Mean Corpuscular Hemoglobin 28.2 pg 27.0-33.0 Norm al (applies to non-numeric results) [facility] [facility] Mean Corpuscular HGB Conc 31.9 g/dL 32.0-36.5 Below low normal [facility] ([facility]) Platelet Count, Automated 264 10 150-450 Normal (applies to non-numeric results) [facility] ([facility]) Red Cell Distribution Width 13.8 % 11.5-14.5 Norm al (applies to non-numeric results) [facility] Nucleated Red Blood Cell % 0.0 % 0-0 Normal (applies to n on-numeric results) [facility]) ID Date Data Source [id number] 04/14/2021 06:30:00 PM EDT [facility] ([facility]) Name Value Range Interpretation Code Description Data Sherry rce(s) Supporting Document(s) Bacteria identified in Unspecified specimen by Anaerob e culture Laboratory test result [facility] ([facility]) Comments: LEFT KNEE PATELLA By: GF Time: 1844 Time: 1838 ID Date Data Source [id number] 04/14/2021 06:30:00 PM EDT [facility] ([facility]) Name Value Range Interpretation Code Description Data Sherry rce(s) Supporting Document(s) Gram Stain Laboratory test result Normal (applies to non-n umeric results) [facility] ([facility]) MODERATE WBCS NO ORGANISMS SEEN ID Date Data Source [id number] 04/14/2021 01:25:00 PM EDT [facility] ([facility]) Name Value Range Interpretation Code Description Data Sherry rce(s) Supporting Document(s) Laboratory test finding (navigational concept) Laboratory test r esult Normal (applies to non-numeric results) [facility] ([facility], ) A false negative result may occur if a s pecimen is improperly collected, transported or handled. False [...] pathogens. DISCLAIMER: Testing was performed using the [facility] ([facility]) SARS-CoV-2 test. This test was developed and its performance characteristics determined by [facility] ([facility]). This test has not been FDA cleared [...] the authorization is terminated or revoked sooner. Coronavirus 2019 Nasopharygeal Laboratory test result [facility] ([facility], ) Comments: SURGICAL PROCEDURE By: PREOP NURSE Time: 1320 ID Date Data Source [id number] 04/14/2021 01:25:00 PM EDT [facility] Name Value Range Interpretation Code Description Data Sherry rce(s) Supporting Document(s) SARS coronavirus 2 RNA [Presence] in Res piratory specimen by JUSTIN with probe detection NEGATIVE [facility] This lab was ordered by [facility] a nd reported by [facility]. ID Date Data Source [id number] 03/19/2021 06:14:00 AM EDT [facility] Name Value Range Interpretation Code Description Data Sherry rce(s) Supporting Document(s) SARS coronavirus 2 RNA [Presence] in Res piratory specimen by JUSTIN with probe detection NEGATIVE [facility] This lab was ordered by [facility] a nd reported by [facility]. ID Date Data Source WOUND CULTURE AND GRAM ST 11/02/2020 12:00:00 AM EDT eCW1 ([facility]) Name Value Range Interpretation Code Description Data Sherry rce(s) Supporting Document(s) WOUND CULTURE AND GRAM ST eCW1 ([facility]) ID Date Data Source HEPATITIS PROFILE ACUTE 10/19/2020 12:00:00 AM EDT eCW1 ([facility]) Name Value Range Interpretation Code Description Data Sherry rce(s) Supporting Document(s) NEGATIVE NEGATIVE HEPATITIS B SURFACE ANTIG EN eCW1 ([facility]) 0.0 <0.8 HEPATITIS C VIRUS ANIBAL INDEX eC W1 ([facility]) NEGATIVE NEGATIVE HEPATITIS A ANTIBODY IGM eCW1 ([facility]) NEGATIVE NEGATIVE HEPATITIS B CORE ANTIBODY IGM eCW1 ([facility]) ID Date Data Source Comprehensive Metabolic Profile (CMP) 10/19/2020 12:00:00 AM EDT eCW1 ([facility]) Name Value Range Interpretation Code Description Data Sherry rce(s) Supporting Document(s) 108 70-100 GLUCOSE, FASTING eCW1 ([facility]) 140 136-145 SODIUM LEVEL eCW1 ([facility]) > 60.0 >60 GLOMERULAR FILTRATION RATE eCW 1 ([facility]) 14 7-18 BLOOD UREA NITROGEN eCW1 ([facility]) 0.82 0.70-1.30 CREATININE FOR GFR eCW1 ([facility]) 4.0 3.5-5.1 POTASSIUM SERUM eCW1 ([facility]) 107 98-107 CHLORIDE LEVEL eCW1 ([facility]) 28 21-32 CARBON DIOXIDE LEVEL eCW1 ([facility]) 0.3 0.2-1.0 BILIRUBIN,TOTAL eCW1 ([facility]) 8.6 8.5-10.1 CALCIUM LEVEL eCW1 ([facility]) 15 7-37 AST/SGOT eCW1 ([facility]) 92 45-117 ALKALINE PHOSPHATASE eCW1 ([facility]) 119 12-78 ALT/SGPT eCW1 ([facility]) 7.0 6.4-8.2 TOTAL PROTEIN eCW1 ([facility]) 3.6 3.2-5.2 ALBUMIN eCW1 ([facility]) 1.1 ALBUMIN/GLOBULIN RATIO eCW1 ([facility]) ID Date Data Source PLATELET ESTIMATE 10/15/2020 12:00:00 AM EDT eCW1 ([facility]) Name Value Range Interpretation Code Description Data Sherry rce(s) Supporting Document(s) NORMAL NORMAL PLATELET ESTIMATE eCW1 ([facility]) ID Date Data Source DIFFERENTIAL 10/15/2020 12:00:00 AM EDT eCW1 ([facility]) Name Value Range Interpretation Code Description Data Sherry rce(s) Supporting Document(s) 27 28-66 NEUTROPHILS eCW1 ([facility]) 14 0-5 MONOCYTES eCW1 ([facility]) 38 16-44 LYMPHOCYTES eCW1 ([facility]) 1 0-3 EOSINOPHILS eCW1 ([facility]) 17 < 11 BANDS eCW1 ([facility]) 1+ ANISOCYTOSIS eCW1 ([facility]) 1 0-1 BASOPHILS eCW1 ([facility]) 2 0-5 ATYPICAL LYMPH eCW1 ([facility]) ID Date Data Source CBC with Differential 10/15/2020 12:00:00 AM EDT eCW1 ([facility]) Name Value Range Interpretation Code Description Data Sherry rce(s) Supporting Document(s) 27.5 24.0-44.0 LYMPH % eCW1 ([facility]) 15.6 0.0-5.0 MONO % eCW1 ([facility]) 55.5 36.0-66.0 NEUTROPHILS % eCW1 ([facility]) 3.4 1.5-8.5 NEUTROPHILS # eCW1 ([facility]) 1.7 1.5-5.0 LYMPH # eCW1 ([facility]) 0.7 0.0-3.0 EOS % eCW1 ([facility]) 0.5 0.0-1.0 BASO % eCW1 ([facility]) 0.0 0.0-0.5 EOS # eCW1 ([facility]) 1.0 0.0-0.8 MONO # eCW1 ([facility]) 0.0 0.0-0.2 BASO # eCW1 ([facility]) 6.6 4.0-10.0 WHITE BLOOD COUNT eCW1 ([facility]) 5.55 4.30-6.10 RED BLOOD COUNT eCW1 ([facility]) 15.5 13.5-17.5 HEMOGLOBIN eCW1 ([facility] hospital) 86.5 80.0-96.0 MEAN CORPUSCULAR VOLUME e CW1 ([facility]) 48.0 42.0-52.0 HEMATOCRIT eCW1 (Critical access hospital) 32.3 32.0-36.5 MEAN CORPUSCULAR HGB CONC eCW1 ([facility]) 12.3 11.5-14.5 RED CELL DISTRIBUTION WID TH eCW1 ([facility]) 178 150-450 PLATELET COUNT, AUTOMATED eCW1 ([facility]) 27.9 27.0-33.0 MEAN CORPUSCULAR HEMOGLOB IN eCW1 ([facility]) ID Date Data Source RUBELLA IMMUNE STATUS IgG 07/02/2020 12:00:00 AM EST eCW1 ([facility]) Name Value Range Interpretation Code Description Data Sherry rce(s) Supporting Document(s) IMMUNE IMMUNE RUBELLA IgG QUALITATIVE eCW1 ( [facility]) ID Date Data Source RUBEOLA IgG ANTIBODY 07/02/2020 12:00:00 AM EST eCW1 ([facility]) Name Value Range Interpretation Code Description Data Sherry rce(s) Supporting Document(s) 288.0 Immune >16.4 RUBEOLA IgG ANTIBODY eC W1 ([facility]) Procedure Social History No Information Vital Signs ID Date Data Source UNK Name Value Range Interpretation Code Description Data Source(s) Body height 71 [in_i] 71 [in_i] [facility] ([facility]) 5'11" Systolic blood pressure 126 mm[Hg] 126 mm[Hg] [facility] ([facility]) Diastolic blood pressure 74 mm[Hg] 74 mm[Hg] [facility] ([facility]) Body temperature 98.2 [degF] 98.2 [degF] [facility] ([facility]) [place] body weight 172 [lb_av] 172 [[facility]_av[facility] Body weight 69.457 kg 69.457 kg [facility] ([facility]) Body surface area Derived from formula 1.88 m2 1.88 m2 [facility] ([facility]) Body weight 153.12 [lb_av] 153.12 [lb_av] [facility] Body mass index (BMI) [Ratio] 21.4 kg/m2 21.4 k g/m2 [facility] ([facility]) Body temperature 96.6 [degF] 96.6 [degF] [facility] ([facility]) Diastolic blood pressure 72 mm[Hg] 72 mm[Hg] [facility] ([facility]) Systolic blood pressure 120 mm[Hg] 120 mm[Hg] [facility] Body temperature 98.5 [degF] 98.5 [degF] [facility] ([facility]) Body height 71 [in_i] 71 [in_i] [facility] ([facility]) 5'11" Body weight 150.00 [lb_av] 150.00 [lb_av] [facility] ([facility]) stated Body mass index (BMI) [Ratio] 20.9 kg/m2 20.9 k g/m2 [facility] [place] body weight 172 [lb_av] 172 [lb_av] [facility] ([facility]) Body weight 68.040 kg 68.040 kg [facility] ([facility]) Body surface area Derived from formula 1.87 m2 1.87 m2 [facility] ([facility]) Body temperature 97.6 [degF] 97.6 [degF] [facility] Body temperature 97.1 [degF] 97.1 [degF] [facility] Body temperature 97.6 [degF] 97.6 [degF] [facility] ([facility]) Respiratory rate 18 /min 18 /min eCW1 ([facility]) Body temperature 98.3 [degF] 98.3 [degF] eCW1 ( [facility]) Body weight 153 [lb_av] 153 [lb_av] eCW1 ([facility]) Systolic blood pressure 106 mm[Hg] 106 mm[Hg] e CW1 ([facility]) Body height 57 [in_i] 57 [in_i] eCW1 ([facility]) Diastolic blood pressure 62 mm[Hg] 62 mm[Hg] eCW1 ([facility]) Body mass index (BMI) [Ratio] 33.11 kg/m2 33.11 kg/m2 eCW1 ([facility]) Heart rate 98 /min 98 /min eCW1 ([facility]) Body weight 154.0 [lb_av] 154.0 [lb_av] eCW1 ([facility]) Body height 57 [in_i] 57 [in_i] eCW1 ([facility]) Body mass index (BMI) [Ratio] 33.32 kg/m2 33.32 kg/m2 eCW1 ([facility]) Heart rate 107 /min 107 /min eCW1 ([facility]) Respiratory rate 18 /min 18 /min eCW1 ([facility]) Body temperature 98.5 [degF] 98.5 [degF] eCW1 ( [facility]) Systolic blood pressure 120 mm[Hg] 120 mm[Hg] e CW1 ([facility]) Diastolic blood pressure 78 mm[Hg] 78 mm[Hg] eCW1 ([facility]) Body weight 159.8 [lb_av] 159.8 [lb_av] eCW1 ([facility]) Body height 57 [in_i] 57 [in_i] eCW1 ([facility]) Body mass index (BMI) [Ratio] 34.58 kg/m2 34.58 kg/m2 eCW1 ([facility]) Heart rate 104 /min 104 /min eCW1 ([facility]) Respiratory rate 18 /min 18 /min eCW1 ([facility]) Body temperature 98.4 [degF] 98.4 [degF] eCW1 ( [facility]) Systolic blood pressure 122 mm[Hg] 122 mm[Hg] e CW1 ([facility]) Diastolic blood pressure 78 mm[Hg] 78 mm[Hg] eCW1 ([facility]) Body weight 148 [lb_av] 148 [lb_av] eCW1 ([facility]) Body height 57 [in_i] 57 [in_i] eCW1 ([facility]) Body mass index (BMI) [Ratio] 32.02 kg/m2 32.02 kg/m2 eCW1 ([facility]) Heart rate 112 /min 112 /min eCW1 ([facility]) Respiratory rate 20 /min 20 /min eCW1 ([facility]) Body temperature 99.4 [degF] 99.4 [degF] eCW1 ( [facility]) Systolic blood pressure 110 mm[Hg] 110 mm[Hg] e CW1 ([facility]) Diastolic blood pressure 76 mm[Hg] 76 mm[Hg] eCW1 ([facility]) Body weight 157 [lb_av] 157 [lb_av] eCW1 ([facility]) Body height 57 [in_i] 57 [in_i] eCW1 ([facility]) Body mass index (BMI) [Ratio] 33.97 kg/m2 33.97 kg/m2 eCW1 ([facility]) Heart rate 80 /min 80 /min eCW1 ([facility]) Respiratory rate 18 /min 18 /min eCW1 ([facility]) Body temperature 98.1 [degF] 98.1 [degF] eCW1 ( [facility]) Systolic blood pressure 110 mm[Hg] 110 mm[Hg] e CW1 ([facility]) Diastolic blood pressure 70 mm[Hg] 70 mm[Hg] eCW1 ([facility]) Body weight 161 [lb_av] 161 [lb_av] eCW1 ([facility]) Body height 57 [in_i] 57 [in_i] eCW1 ([facility]) Body mass index (BMI) [Ratio] 34.84 kg/m2 34.84 kg/m2 eCW1 ([facility]) Heart rate 76 /min 76 /min eCW1 ([facility]) Respiratory rate 18 /min 18 /min eCW1 ([facility]) Body temperature 99.2 [degF] 99.2 [degF] eCW1 ( [facility]) Systolic blood pressure 110 mm[Hg] 110 mm[Hg] e CW1 ([facility]) Diastolic blood pressure 60 mm[Hg] 60 mm[Hg] eCW1 ([facility]) Patient Treatment Plan of Care Planned Activity Planned Date Details Description Data Source (s) doxycycline hyclate 100 MG Oral Capsule 05/12/2021 12:00:00 AM EDT eCW1 ([facility]) Amoxicillin 875 MG / Clavulanate 125 MG Oral Tablet 11/03/19 12:00:00 AM EDT eCW1 ([facility]) Hydroxyzine Hydrochloride 25 MG Oral Tablet 10/15/2020 12:00:00 AM EDT eCW1 ([facility]) PredniSONE 10 MG (48) 10/15/2020 12:00:00 AM EDT eCW1 ([facility]) Hydroxyzine Hydrochloride 25 MG Oral Tablet 10/15/2020 12:00:00 AM EDT eCW1 ([facility]) PredniSONE 10 MG (48) 10/15/2020 12:00:00 AM EDT eCW1 ([facility]) Ibuprofen 800 MG Oral Tablet 10/07/2020 12:00:00 AM EST eCW1 ([facility]) Ibuprofen 800 MG Oral Tablet 10/07/2020 12:00:00 AM EST eCW1 ([facility])
--- OUTSIDE RECORDS SUMMARY | 2021-07-01 06:06 | CCD | Continuity of Care Document ---
Author Author Margarita WOO DO Organization Unknown Address [address] [place] [address], [facility] [place] [address] Phone [phone] Care Team Providers Care [employer] Name Role Phone Isma Bergman M.D. AUTM [phone] AUTM Unavailable Problems Description No Information Available [...] H/L Range Note Complete Blood Count 04/15/2021 [facility] enter Main Lab [address] [place] [address] [phone] White Blood Count 7.7 10 Normal 4.0-10.0 [...] % Normal 0-0 Basic Metabolic Profile 04/15/2021 [facility] Main Lab [address] [place], [place] [id number] [phone] Glucose, Fasting 140 mg/dL High 70-100 Blood [...] mg/dL Normal 8.5-10.1 Complete Blood Count 04/14/2021 [facility] Main Lab [address] [place] [address] [phone] White Blood Count 5.8 10 Normal 4.0-10.0 [...] 0.0 % Normal 0-0 Prothrombin Time/Inr 04/14/2021 [facility] Lab [address] [place] [address] [phone] Prothrombin Time 13.6 seconds Normal 12.7-14.5 Inr 1.00 Normal 2 Basic Metabolic Profile 04/14/2021 [facility] Main Lab [address] [place] [address] [phone] Glucose, Fasting 109 mg/dL High 70-100 Blood [...] 8.5-10.1 Culture Wound And Gram Stain 04/14/2021 [facility] Main Lab [address] [place] [phone] Gram Stain (SEE NOTE) Normal 4 Laboratory test finding 04/14/2021 [facility] Main Lab [address] [place] [phone] Anaerobic Culture (SEE NOTE) 5 Laboratory test finding 04/14/2021 [facility] Main Lab [address] [place] [address] [phone] Coronavirus 2019 Nasopharygeal <pending> 6 Sars Covid-19 Amplification NEGATIVE Normal Negative 7 1 Units are mL/min/1.73 m2 Chronic Kidney Disease Staging per NKF: Stage I & II GFR >=60 Normal to Mildly Decreased Stage III GFR 30-59 Moderately Decreased Stage IV GFR 15-29 Severely Decreased Stage V GFR <15 Very Little GFR Left ESRD GFR <15 on EARLY CHILDHOOD TEACHER 2 THERAPUTIC HUMAN INR VALUES INDICATIONS NORMAL [...] Little GFR Left ESRD GFR <15 on EARLY CHILDHOOD TEACHER 4 MODERATE WBCS NO ORGANISMS SEEN 5 [...] pathogens. DISCLAIMER: Testing was performed using the [facility] SARS-CoV-2 test. This test was developed and its performance characteristics determined by [facility]. This test has not been FDA cleared [...] Provider Dx Diagnosis Office Visit 04/26/2021 9:40a [facility] Natasha Woo, S82.042D Displ commnt fx left patella, subs for c los fx w routn heal Office Visit 04/14/2021 10:30a [facility] Melchor Schmidt MD [id number] [...] 9:30 am - Melchor Schmidt MD at [facility] 04/29/2021 - Anival Woo DO* S82.042D Displaced [...]
[2021-07-01] MEDS ORDERED: ROCURONIUM BROMIDE 50 MG/5 ML VIAL As Ordered ONE (07:20)
[2021-07-01] MEDS ORDERED: ACETAMINOPHEN 1000MG 100ML IV BTL (OFIRMEV) (J0131 PER 10MG) As Ordered ONE (07:20)
[2021-07-01] MEDS ORDERED: dexameTHASONE 4 MG/ML 1ML VIAL (J1100 PER 1MG) As Ordered ONE ×2 (07:20→08:08)
[2021-07-01] MEDS ORDERED: KETOROLAC 60MG 2ML VIAL As Ordered ONE (07:20)
[2021-07-01] MEDS ORDERED: ONDANSETRON 4MG/2ML VIAL As Ordered ONE ×2 (07:20→08:09)
[2021-07-01] MEDS ORDERED: fentaNYL 100 MCG/2 ML INJECTION (J3010) As Ordered ONE (07:20)
[2021-07-01] MEDS ORDERED: SUGAMMADEX SODIUM 500 MG/5 ML VIAL (BRIDION) As Ordered ONE (07:20)
[2021-07-01] MEDS ORDERED: propofoL 200 MG/20 ML VIAL As Ordered ONE (07:20)
[2021-07-01] MEDS ORDERED: MIDAZOLAM INJ 2MG/2ML VIAL (J2250 PER 1MG) As Ordered ONE (07:20)
[2021-07-01] MEDS ORDERED: LIDOCAINE 2% 100MG/5ML SDV (FOR ANES.) As Ordered ONE (07:20)
[2021-07-01] MEDS ORDERED: CHLOROPROCAINE PRES. FREE 3% 20ML VIAL As Ordered ONE (07:55)
[2021-07-01] MEDS ORDERED: oxyCODONE 5MG TAB PO PRN (09:05)
[2021-07-01] MEDS ORDERED: METOCLOPRAMIDE INJ 10MG/2ML VIAL (J2765 PER 1) IV PRN (09:05)
[2021-07-01] MEDS ORDERED: LR 1,000 ML IV SCH (09:05)
[2021-07-01] MEDS ORDERED: ONDANSETRON 4MG/2ML VIAL IV PRN (09:05)
[2021-07-01] MEDS ORDERED: NORCO, ANEXSIA 5/325MG TABLET (HYDROcodone/ACETAMINOPHEN) PO PRN (09:10)
--- NOTE | 2021-07-01 10:11 | RO ---
OPERATIVE NOTE DATE OF OPERATION: 07/01/2021 PREOPERATIVE DIAGNOSIS: Perianal cyst versus fistula. POSTOPERATIVE DIAGNOSIS: Perianal cyst. PROCEDURE: Rectal exam under anesthesia with exploration of cyst, washout, and primary closure. SURGEON: Porfirio Gonzalez DO QUALITY ASSURANCE QA LAB ANALYST: None. ANESTHESIA: Spinal with sedation. ESTIMATED BLOOD LOSS: 2 mL COMPLICATIONS: None. INDICATIONS FOR PROCEDURE: The patient is a 30-year-old male who presents after having some perianal drainage. He was treated primarily with antibiotics, but he had continual drainage from a small opening following that. The recommendation was then to proceed with rectal exam in the operating room. DESCRIPTION OF PROCEDURE: After spinal sedation, he was placed in the prone position. The presacral area was sterilely prepped and draped and the perianal area. Next, timeout was done to confirm the proper patient and proper procedure. Following that, the opening where the drainage was coming from was probed with a wire probed. It did not extend anywhere. I then opened up that opening to about 5 mm, debrided the skin edges, and sent that as a specimen to be tested. This did not reveal any type of cyst cavity in that area. I then closed that incision primarily with a 2-0 chromic suture. The area was then cleaned and dried. The patient was awakened from anesthesia and sent to the PACU in stable condition.
[2021-07-01 10:25] VITALS: BP 161/95
== END 2021-07-01 10:25 | disposition home or self-care (01) ==
LOC: M SDC 06:01
PROVIDERS: ATTEND Surgery
DX: K62.89 Other specified diseases of anus and rectum (principal); Z88.2 Allergy status to sulfonamides; F17.210 Nicotine dependence, cigarettes, uncomplicated
CPT/HCPCS: 46050; 88304; J1100; J2250; J2400; J2405; J3010

== ENCOUNTER → 2021-07-08 | Outpatient (CLI) | payer OTHER ==
[~2021-07-08] MED LIST changes: -LR 1,000 ML IV ONE
== END ==
LOC: M SOG 13:54
PROVIDERS: ATTEND Orthopaedic Surgery
DX: S82.042D Displaced comminuted fracture of left patella, subsequent encounter for closed fracture with routine healing (principal); Y92.9 Unspecified place or not applicable; Y93.9 Activity, unspecified; Y99.9 Unspecified external cause status

== ENCOUNTER → 2021-09-08 | Outpatient (CLI) | payer OTHER | LOC: M SOG 11:18 | PROVIDERS: ATTEND Orthopaedic Surgery | DX: S82.042D Displaced comminuted fracture of left patella, subsequent encounter for closed fracture with routine healing (principal); W18.30XD Fall on same level, unspecified, subsequent encounter; Y92.009 Unspecified place in unspecified non-institutional (private) residence as the place of occurrence of the external cause ==

== ENCOUNTER → 2021-10-21 | Outpatient (REF) ==
[2021-10-21 12:00] LABS: HEPATITIS B SURFACE ANTIBODY POSITIVE (POSITIVE)
== END ==
LOC: M LAB 10:22
PROVIDERS: ATTEND Nurse Practitioner Adult Health
DX: Z00.00 Encounter for general adult medical examination without abnormal findings (principal)

== ENCOUNTER → 2022-01-02 | Outpatient (REF) | payer BC ==
[2022-01-02 11:50] LABS: SEMEN APPEARANCE OPAQUE (OPAQUE); SEMEN VISCOSITY LIQUID (LIQUID); SPERM CONCENTRATION 15.9 M/ml (>=15.0); WBC CONCENTRATION <=1 M/ml (<=1 M/ml)
== END ==
LOC: M SMT 11:13
PROVIDERS: ATTEND Physician Assistant
DX: Z31.69 Encounter for other general counseling and advice on procreation (principal)

== ENCOUNTER 2022-02-18 18:07 | Emergency (ER) | payer OTHER, BC ==
[~2022-02-18 18:07] MED LIST changes: +LEVO1TAB40 PO; -LEVO750T13 PO
[2022-02-18 18:18] VITALS: BP 120/58
[2022-02-18] MEDS ORDERED: FLUORESCEIN OPHTH 1 MG STRIP OU ONE (18:35)
[2022-02-18] MEDS ORDERED: TETRACAINE 0.5% OPHTH SOLN 4ML OU ONE (18:35)
[2022-02-18] MEDS ORDERED: NEOSPORIN OINT 0.9 GM PKT TOP ONE (18:55)
== END 2022-02-18 19:10 | disposition home or self-care (01) ==
LOC: M ED 18:07 → EDBD 18:07 → M ED 19:10
DX: S00.511A Abrasion of lip, initial encounter (principal); T49.4X5A Adverse effect of keratolytics, keratoplastics, and other hair treatment drugs and preparations, initial encounter